=== PATIENT | female | born 1950 | race Caucasian/White ===

== ENCOUNTER 2020-07-04 13:46 | Inpatient (IN) | payer MEDICARE, OTHER ==
--- NOTE | 2020-07-04 15:11 | CR ---
Indication: Fall with injury. Technique: Pelvis and right hip 4 views. Comparison: None. Findings: There is an acute comminuted displaced fracture of the right femoral neck. The distal fracture fragment is displaced laterally and superiorly relative to the femoral head. The femoral head remains aligned within the acetabulum. The sacroiliac joints are normal in appearance. Soft tissues are unremarkable. Impression: Acute comminuted displaced fracture of the right femoral neck. Dictated by Glenna Toledo MD @ 07/04/2020 3:08:[address] Glenna Toledo @ Jul 04 2020 3:08PM
--- NOTE | 2020-07-04 15:13 | CR ---
Indication: Fall with injury. Technique: Left humerus 2 views. Comparison: None. Findings: There is an acute mildly displaced oblique fracture of the left proximal and mid humeral shaft. No significant angulation. Subtle lucencies within the lateral epicondyle of the distal humerus most likely related to superimposed skin folds. The shoulder and elbow appear normally aligned. The humeral head remains normally aligned with the glenoid. Moderate degenerative changes of the glenohumeral and acromioclavicular joints. Soft tissues are unremarkable. Impression: Acute mildly displaced oblique fracture of the left proximal and mid humeral shaft. Dictated by Glenna Toledo MD @ 07/04/2020 3:10:[address] Glenna Toledo @ Jul 04 2020 3:10PM
[2020-07-04 15:21] LABS: BLOOD UREA NITROGEN,BUN 27 mg/dL (7.0-18.0); CARBON DIOXIDE,CO2 27.6 mmol/L (21.0-32.0); CHLORIDE,CL 106 mmol/L (98-107); GLUCOSE RANDOM 231 mg/dL (74-106); POTASSIUM,K 4.2 mmol/L (3.5-5.1); SODIUM,NA 142 mmol/L (136-145)
--- NOTE | 2020-07-04 15:31 | CR ---
INDICATION: Trauma, fall TECHNIQUE: Chest 1 view COMPARISON: None FINDINGS: Cardiovascular and mediastinum: Heart size and vasculature are normal in caliber and appearance. Lungs and pleural spaces: Lungs are clear. No sign of infiltrate or mass. No sign of pleural effusion. No pneumothorax. Bones and soft tissues: No significant findings. IMPRESSION: No acute or significant findings. Dictated by Isidro Herbert MD @ 07/04/2020 3:29:[address] Isidro Herbert @ Jul 04 2020 3:29PM
--- NOTE | 2020-07-04 18:56 | PCM.HP.2 ---
H&P History of Present Illness - General Date of Service: 07/04/20 Admit Problem/Dx: Admission Diagnosis/Problem Admission Diagnosis/Problem Intertrochanteric fracture of right femur Source of Information: Patient History Limitations: Reports: No Limitations - History of Present Illness Initial Comments - Free Text/Narative: Patient is a 69-year-old female with a significant past medical history of type 2 diabetes, hypertension, hypothyroidism: Presenting today after experiencing a mechanical fall resulting in a left humeral and right hip fracture. Patient en dorses walking into the gas station and tripping on some carpet falling forward and landing on her left arm. Mentions exquisite pain resulting in EMS call; presented to the ED via EMS thereafter. ED course: Hip x-ray: Acute comminuted displaced fracture of the right femoral neck Humerus x-ray: Acute mildly displaced oblique fracture of the left proximal and mid humeral shaft Chest x-ray: No acute cardiopulmonary pathologies. Vitals: BP 168/79, pulse rate 68, 97 temperature, O2 sat 96%. Bedside: Endorses similar story as above. Denies any preceding symptoms including dizziness, changes in vision, chest pain, shortness of breath. Patient is confident that this was a mechanical fall and does state having a history issue with balance/steadiness and should probably use her walker/cane. 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 Endorses being regular with her medication not missing or taking extra doses. Last meal last night Eating and drinking well. Denies any fevers, chills, bodies, chest pain, shortness of breath, dysuria, hematuria, urinary incontinence. Patient otherwise states having some discomfort in her left arm and right hip with movement. - Related Data Allergies/Adverse Reactions: Allergies Allergy/AdvReac Type Severity Reaction Status Date / Time No Known Allergies Allergy Verified 07/04/20 13:59 Home Medications: Home Meds Calcium Carbonate [Calcium] 600 mg PO DAILY 07/04/20 [History] Cholecalciferol (Vitamin D3) [Vitamin D3] 500 mg PO DAILY 07/04/20 [History] Insulin Aspart [NovoLOG] 1 dose SQ DAILY 07/04/20 [History] Insulin Glarg,Human.Rec.Analog [Lantus] 1 dose INJECT ASDIRECTED 07/04/20 [History] Lansoprazole [Prevacid] 15 mg PO DAILY 07/04/20 [History] Levothyroxine Sodium [Synthroid] 75 mcg PO DAILY 07/04/20 [History] Losartan [Cozaar] 50 mg PO BID 07/04/20 [History] Lutein/Minerals/Vit A,C & E [Ocuvite] 1 tab PO DAILY 07/04/20 [History] Pioglitazone [Actos] 30 mg PO DAILY 07/04/20 [History] atorvaSTATin [Lipitor] 40 mg PO DAILY 07/04/20 [History] carvediloL [Carvedilol] 25 mg PO BID 07/04/20 [History] hydroCHLOROthiazide [Hydrochlorothiazide] 25 mg PO DAILY 07/04/20 [History] Past Medical History Cardiovascular History: Reports: High Cholesterol, Hypertension Endocrine/Metabolic History: Reports: Diabetes, Type II, Hypothyroidism - Infectious Disease History Infectious Disease History: Reports: None Social & Family History - Family History Family Medical History: No Pertinent Family History - Tobacco Use Tobacco Use Status *Q: Never Tobacco User - Caffeine Use Caffeine Use: Reports: None H&P Review of Systems - Review of Systems: Review Of Systems: See Below General: Reports: No Symptoms. Denies: Fever, Chills, Malaise, Weakness HEENT: Reports: No Symptoms Pulmonary: Reports: No Symptoms Cardiovascular: Reports: No Symptoms Gastrointestinal: Reports: No Symptoms Genitourinary: Reports: No Symptoms. Denies: Dysuria, Frequency, Burning, Pain Musculoskeletal: Reports: Shoulder Pain, Arm Pain, Back Pain, Other (right hip pain ) Psychiatric: Reports: No Symptoms Neurological: Denies: Confusion, Dizziness, Headache Exam - Exam Exam: See Below - Vital Signs Vital Signs: Last Vital Signs Temp 97.0 F 07/04/20 13:49 Pulse 68 07/04/20 15:40 Resp 07/04/20 15:40 BP 168/79 H 07/04/20 15:40 Pulse Ox 96 07/04/20 15:40 - Exam Quality Assessment: No: Supplemental Oxygen General: Alert, Oriented, Cooperative HEENT: EOMI, Mucosa Moist & [place] Lungs: Clear to Auscultation, Normal Respiratory Effort Cardiovascular: Regular Rate, Regular Rhythm GI/Abdominal Exam: Soft, Non-Tender (Female) Exam: Other (indwelling cath in-situ ) Extremities: Other (left upper extremity: tenderness noted w. minimal movmenet ; no overt overlying skin breakdown ....right hip tenderness: pain w. passive/ active ROM ) Skin: Warm Neurological: Cranial Nerves Intact Neuro Extensive - Mental Status: Alert, Oriented x3 Psychiatric: Alert, Normal Affect, Normal Mood Physical Exam Comments:: Obese female - Patient Data Lab Results Last 24 hrs: Laboratory Results - last 24 hr 07/04/20 07/04/20 07/04/20 Range/Units 14:42 14:42 15:37 WBC 3.92 L (4.0-11.0) K/uL RBC 3.68 L (4.30-5.90) M/uL Hgb 11.6 L (12.0-16.0) g/dL Hct 35.2 L (36.0-46.0) % MCV 95.7 (80.0-98.0) fL MCH 31.5 (27.0-32.0) pg MCHC 33.0 (31.0-37.0) g/dL RDW Std Deviation 49.4 (28.0-62.0) fl RDW Coeff of Grace 14 (11.0-15.0) % Plt Count 132 L (150-400) K/uL MPV 10.90 (7.40-12.00) fL Neut % (Auto) 69.4 (48.0-80.0) % Lymph % (Auto) 16.6 (16.0-40.0) % [place] % (Auto) 11.7 (0.0-15.0) % Eos % (Auto) 2.0 (0.0-7.0) % Baso % (Auto) 0.3 (0.0-1.5) % Neut # (Auto) 2.7 (1.4-5.7) K/uL Lymph # (Auto) 0.7 (0.6-2.4) K/uL [place] # (Auto) 0.5 (0.0-0.8) K/uL Eos # (Auto) 0.1 (0.0-0.7) K/uL Baso # (Auto) 0.0 (0.0-0.1) K/uL Nucleated RBC % 0.0 /100WBC Nucleated RBCs # 0 K/uL Sodium 142 (136-145) mmol/L Potassium 4.2 (3.5-5.1) mmol/L Chloride 106 (98-107) mmol/L Carbon Dioxide 27.6 (21.0-32.0) mmol/L BUN 27 H (7.0-18.0) mg/dL Creatinine 1.1 H (0.6-1.0) mg/dL Est Cr Clr Drug Dosing TNP Estimated GFR (MDRD) 49.1 ml/min Glucose 231 H (74-106) mg/dL Calcium 9.1 (8.5-10.1) mg/dL Total Bilirubin 0.7 (0.2-1.0) mg/dL AST 18 (15-37) IU/L ALT 19 (14-63) IU/L Alkaline Phosphatase 72 (46-116) U/L Total Protein 6.3 L (6.4-8.2) g/dL Albumin 3.2 L (3.4-5.0) g/dL Globulin 3.1 (2.6-4.0) g/dL Albumin/Globulin Ratio 1.0 (0.9-1.6) Urine Color Urine Appearance Urine pH (5.0-8.0) Ur Specific [place] (1.001-1.035) Urine Protein (NEGATIVE) mg/dL Urine Glucose (UA) (NEGATIVE) mg/dL Urine Ketones (NEGATIVE) mg/dL Urine Occult Blood (NEGATIVE) Urine Nitrite (NEGATIVE) Urine Bilirubin (NEGATIVE) Urine Urobilinogen (<2.0) EU/dL Ur Leukocyte Esterase (NEGATIVE) SARS-CoV-2 RNA (ESTEE) NEGATIVE (NEGATIVE) 07/04/20 Range/Units 17:50 WBC (4.0-11.0) K/uL RBC (4.30-5.90) M/uL Hgb (12.0-16.0) g/dL Hct (36.0-46.0) % MCV (80.0-98.0) fL MCH (27.0-32.0) pg MCHC (31.0-37.0) g/dL RDW Std Deviation (28.0-62.0) fl RDW Coeff of Grace (11.0-15.0) % Plt Count (150-400) K/uL MPV (7.40-12.00) fL Neut % (Auto) (48.0-80.0) % Lymph % (Auto) (16.0-40.0) % [place] % (Auto) (0.0-15.0) % Eos % (Auto) (0.0-7.0) % Baso % (Auto) (0.0-1.5) % Neut # (Auto) (1.4-5.7) K/uL Lymph # (Auto) (0.6-2.4) K/uL [place] # (Auto) (0.0-0.8) K/uL Eos # (Auto) (0.0-0.7) K/uL Baso # (Auto) (0.0-0.1) K/uL Nucleated RBC % /100WBC Nucleated RBCs # K/uL Sodium (136-145) mmol/L Potassium (3.5-5.1) mmol/L Chloride (98-107) mmol/L Carbon Dioxide (21.0-32.0) mmol/L BUN (7.0-18.0) mg/dL Creatinine (0.6-1.0) mg/dL Est Cr Clr Drug Dosing Estimated GFR (MDRD) ml/min Glucose (74-106) mg/dL Calcium (8.5-10.1) mg/dL Total Bilirubin (0.2-1.0) mg/dL AST (15-37) IU/L ALT (14-63) IU/L Alkaline Phosphatase (46-116) U/L Total Protein (6.4-8.2) g/dL Albumin (3.4-5.0) g/dL Globulin (2.6-4.0) g/dL Albumin/Globulin Ratio (0.9-1.6) Urine Color YELLOW Urine Appearance HAZY Urine pH 5.5 (5.0-8.0) Ur Specific [place] >= 1.030 (1.001-1.035) Urine Protein NEGATIVE (NEGATIVE) mg/dL Urine Glucose (UA) 250 H (NEGATIVE) mg/dL Urine Ketones TRACE H (NEGATIVE) mg/dL Urine Occult Blood NEGATIVE (NEGATIVE) Urine Nitrite NEGATIVE (NEGATIVE) Urine Bilirubin NEGATIVE (NEGATIVE) Urine Urobilinogen 0.2 (<2.0) EU/dL Ur Leukocyte Esterase NEGATIVE (NEGATIVE) SARS-CoV-2 RNA (ESTEE) (NEGATIVE) Result Diagrams: 07/04/20 14:42 07/04/20 14:42 Sepsis Event Note - Evaluation Sepsis Screening Result: No Definite Risk - Focused Exam Vital Signs: Vital Signs Temp Pulse Resp BP Pulse Ox 07/04/20 15:40 68 17 168/79 H 96 07/04/20 13:49 97.0 F 64 16 164/88 H 98 - Problem List (1) Closed right hip fracture SNOMED Code(s): 274254653 ICD Code: S72.001A - FRACTURE OF UNSP PART OF NECK OF RIGHT FEMUR, INIT Status: Acute Current Visit: Yes (2) Left humeral fracture SNOMED Code(s): 83255745 ICD Code: S42.302A - UNSP FRACTURE OF SHAFT OF HUMERUS, LEFT ARM, INIT Status: Acute Current Visit: Yes (3) Diabetes SNOMED Code(s): 94233374 ICD Code: E11.9 - TYPE 2 DIABETES MELLITUS WITHOUT COMPLICATIONS Status: Acute Current Visit: Yes (4) Hypertension SNOMED Code(s): 41080399 ICD Code: I10 - ESSENTIAL (PRIMARY) HYPERTENSION Status: Acute Current V isit: Yes (5) Obesity SNOMED Code(s): 153417622, 882413543 ICD Code: E66.9 - OBESITY, UNSPECIFIED Status: Acute Current Visit: Yes Problem List Initiated/Reviewed/Updated: Yes Orders Last 24hrs: Active Orders 24 hr Category Date Time Status Admission Status [Patient Status] [ADT] Stat ADT 07/04/20 17:50 Active EKG Documentation Completion [RC] STAT Care 07/04/20 14:32 Active DME for Discharge [COMM] Stat Oth 07/04/20 14:33 Ordered Assessment/Plan Comment:: Assessment: 1. Left humeral fracture/right hip fracture status post mechanical fall 2. GIANNI 3. Hyperglycemia and a type II diabetic 4. Past medical history: Type 2 diabetes, hypertension, hyperlipidemia hypothyroidism Plan Admit to inpatient. I's and O's per routine. Vitals per routine. Bedrest Heparin 5000 q8h Omeprazole 40 daily 1. Left humerus /right hip fracture: pt. is scheduled for orthopedic intervention on upcoming Saturday07-06-2020 Continue to medically manage pt at this time. Pain control: oxycodone q 4 hrs PRN w. ibuprofen Heparin 5000 q 8hrs scheduled Complete bedrest w. catheter in -situ GIANNI: tolerating po ; recheck in AM BMP Mechanical fall per patient : denies any preceding symptoms for fall. SSI+ TID accuchecks. Add on TSH and A1c 2. Type II DM: elevated A1c; TID accuchecks + SSI started 3. HTN: hold losartan; continue other meds for BP control + 1.1 Creatinine (mild GIANNI) 4. Continue home medications otherwise
[2020-07-04] MEDS ORDERED: Ondansetron 4 MG Tab.DIS PO PRN (19:05)
[2020-07-04] MEDS ORDERED: Ibuprofen 600 MG Tab PO ONE (19:06)
[2020-07-04] MEDS ORDERED: Ibuprofen 400 MG Tab PO PRN (19:28)
--- NOTE | 2020-07-04 19:30 | PCM.CONS ---
H&P History of Present Illness - General Date of Service: 07/04/20 Admit Problem/Dx: Admission Diagnosis/Problem Admission Diagnosis/Problem Intertrochanteric fracture of right femur Source of Information: Patient, Provider History Limitations: Reports: No Limitations - History of Present Illness Initial Comments - Free Text/Narative: Patient is a 69-year-old female who fell today at the gas station. She had immediate onset of pain in her right hip and left upper arm. She is seen in the emergency room. On x-rays she has a long spiral humerus shaft fracture on the left side and a right displaced basicervical femoral neck fracture. She denies any other significant injuries. She has no numbness in her left hand or right foot. She had no loss of consciousness, chest pain, or shortness of breath. She has no personal or family history of venous thromboembolic events. She is and lives independently on her own. - Related Data Allergies/Adverse Reactions: Allergies Allergy/AdvReac Type Severity Reaction Status Date / Time No Known Allergies Allergy Verified 07/04/20 13:59 Home Medications: Home Meds Calcium Carbonate [Calcium] 600 mg PO DAILY 07/04/20 [History] Cholecalciferol (Vitamin D3) [Vitamin D3] 500 mg PO DAILY 07/04/20 [History] Insulin Aspart [NovoLOG] 1 dose SQ DAILY 07/04/20 [History] Insulin Glarg,Human.Rec.Analog [Lantus] 1 dose INJECT ASDIRECTED 07/04/20 [History] Lansoprazole [Prevacid] 15 mg PO DAILY 07/04/20 [History] Levothyroxine Sodium [Synthroid] 75 mcg PO DAILY 07/04/20 [History] Losartan [Cozaar] 50 mg PO BID 07/04/20 [History] Lutein/Minerals/Vit A,C & E [Ocuvite] 1 tab PO DAILY 07/04/20 [History] Pioglitazone [Actos] 30 mg PO DAILY 07/04/20 [History] atorvaSTATin [Lipitor] 40 mg PO DAILY 07/04/20 [History] carvediloL [Carvedilol] 25 mg PO BID 07/04/20 [History] hydroCHLOROthiazide [Hydrochlorothiazide] 25 mg PO DAILY 07/04/20 [History] Past Medical History Cardiovascular History: Reports: High Cholesterol, Hypertension Endocrine/Metabolic History: Reports: Diabetes, Type II, Hypothyroidism - Infectious Disease History Infectious Disease History: Reports: None Social & Family History - Family History Family Medical History: No Pertinent Family History - Tobacco Use Tobacco Use Status *Q: Never Tobacco User - Caffeine Use Caffeine Use: Reports: None H&P Review of Systems - Review of Systems: Review Of Systems: See Below Musculoskeletal: Reports: Other (Right hip pain and left upper arm pain) Exam - Exam Exam: See Below - Vital Signs Vital Signs: Last Vital Signs Temp 97.0 F 07/04/20 13:49 Pulse 68 07/04/20 15:40 Resp 17 07/04/20 15:40 BP 168/79 H 07/04/20 15:40 Pulse Ox 96 07/04/20 15:40 - Exam Physical Exam Comments:: Right hip skin is intact Minimal swelling Hip range of motion, stability, palpation, and strength testing are deferred due to known fracture Dorsalis pedis pulse palpable Normal sensation to light touch in deep peroneal, superficial peroneal, and posterior tibial nerve distributions Moves toes Skin is intact in left upper arm with mild swelling Shoulder and elbow range of motion, stability, palpation, and strength testing are deferred due to known fracture Radial pulses palpable Normal sensation to light touch in median, ulnar, and radial nerve distributions Moves fingers - Patient Data Lab Results Last 24 hrs: Laboratory Results - last 24 hr 07/04/20 07/04/20 07/04/20 Range/Units 14:42 14:42 15:37 WBC 3.92 L (4.0-11.0) K/uL RBC 3.68 L (4.30-5.90) M/uL Hgb 11.6 L (12.0-16.0) g/dL Hct 35.2 L (36.0-46.0) % MCV 95.7 (80.0-98.0) fL MCH 31.5 (27.0-32.0) pg MCHC 33.0 (31.0-37.0) g/dL RDW Std Deviation 49.4 (28.0-62.0) fl RDW Coeff of Grace 14 (11.0-15.0) % Plt Count 132 L (150-400) K/uL MPV 10.90 (7.40-12.00) fL Neut % (Auto) 69.4 (48.0-80.0) % Lymph % (Auto) 16.6 (16.0-40.0) % [place] % (Auto) 11.7 (0.0-15.0) % Eos % (Auto) 2.0 (0.0-7.0) % Baso % (Auto) 0.3 (0.0-1.5) % Neut # (Auto) 2.7 (1.4-5.7) K/uL Lymph # (Auto) 0.7 (0.6-2.4) K/uL [place] # (Auto) 0.5 (0.0-0.8) K/uL Eos # (Auto) 0.1 (0.0-0.7) K/uL Baso # (Auto) 0.0 (0.0-0.1) K/uL Nucleated RBC % 0.0 /100WBC Nucleated RBCs # 0 K/uL Sodium 142 (136-145) mmol/L Potassium 4.2 (3.5-5.1) mmol/L Chloride 106 (98-107) mmol/L Carbon Dioxide 27.6 (21.0-32.0) mmol/L BUN 27 H (7.0-18.0) mg/dL Creatinine 1.1 H (0.6-1.0) mg/dL Est Cr Clr Drug Dosing TNP Estimated GFR (MDRD) 49.1 ml/min Glucose 231 H (74-106) mg/dL Calcium 9.1 (8.5-10.1) mg/dL Total Bilirubin 0.7 (0.2-1.0) mg/dL AST 18 (15-37) IU/L ALT 19 (14-63) IU/L Alkaline Phosphatase 72 (46-116) U/L Total Protein 6.3 L (6.4-8.2) g/dL Albumin 3.2 L (3.4-5.0) g/dL Globulin 3.1 (2.6-4.0) g/dL Albumin/Globulin Ratio 1.0 (0.9-1.6) Urine Color Urine Appearance Urine pH (5.0-8.0) Ur Specific [place] (1.001-1.035) Urine Protein (NEGATIVE) mg/dL Urine Glucose (UA) (NEGATIVE) mg/dL Urine Ketones (NEGATIVE) mg/dL Urine Occult Blood (NEGATIVE) Urine Nitrite (NEGATIVE) Urine Bilirubin (NEGATIVE) Urine Urobilinogen (<2.0) EU/dL Ur Leukocyte Esterase (NEGATIVE) SARS-CoV-2 RNA (ESTEE) NEGATIVE (NEGATIVE) 07/04/20 Range/Units 17:50 WBC (4.0-11.0) K/uL RBC (4.30-5.90) M/uL Hgb (12.0-16.0) g/dL Hct (36.0-46.0) % MCV (80.0-98.0) fL MCH (27.0-32.0) pg MCHC (31.0-37.0) g/dL RDW Std Deviation (28.0-62.0) fl RDW Coeff of Grace (11.0-15.0) % Plt Count (150-400) K/uL MPV (7.40-12.00) fL Neut % (Auto) (48.0-80.0) % Lymph % (Auto) (16.0-40.0) % [place] % (Auto) (0.0-15.0) % Eos % (Auto) (0.0-7.0) % Baso % (Auto) (0.0-1.5) % Neut # (Auto) (1.4-5.7) K/uL Lymph # (Auto) (0.6-2.4) K/uL [place] # (Auto) (0.0-0.8) K/uL Eos # (Auto) (0.0-0.7) K/uL Baso # (Auto) (0.0-0.1) K/uL Nucleated RBC % /100WBC Nucleated RBCs # K/uL Sodium (136-145) mmol/L Potassium (3.5-5.1) mmol/L Chloride (98-107) mmol/L Carbon Dioxide (21.0-32.0) mmol/L BUN (7.0-18.0) mg/dL Creatinine (0.6-1.0) mg/dL Est Cr Clr Drug Dosing Estimated GFR (MDRD) ml/min Glucose (74-106) mg/dL Calcium (8.5-10.1) mg/dL Total Bilirubin (0.2-1.0) mg/dL AST (15-37) IU/L ALT (14-63) IU/L Alkaline Phosphatase (46-116) U/L Total Protein (6.4-8.2) g/dL Albumin (3.4-5.0) g/dL Globulin (2.6-4.0) g/dL Albumin/Globulin Ratio (0.9-1.6) Urine Color YELLOW Urine Appearance HAZY Urine pH 5.5 (5.0-8.0) Ur Specific [place] >= 1.030 (1.001-1.035) Urine Protein NEGATIVE (NEGATIVE) mg/dL Urine Glucose (UA) 250 H (NEGATIVE) mg/dL Urine Ketones TRACE H (NEGATIVE) mg/dL Urine Occult Blood NEGATIVE (NEGATIVE) Urine Nitrite NEGATIVE (NEGATIVE) Urine Bilirubin NEGATIVE (NEGATIVE) Urine Urobilinogen 0.2 (<2.0) EU/dL Ur Leukocyte Esterase NEGATIVE (NEGATIVE) SARS-CoV-2 RNA (ESTEE) (NEGATIVE) Result Diagrams: 07/04/20 14:42 07/04/20 14:42 Sepsis Event Note - Evaluation Sepsis Screening Result: No Definite Risk - Focused Exam Vital Signs: Vital Signs Temp Pulse Resp BP Pulse Ox 07/04/20 15:40 68 17 168/79 H 96 07/04/20 13:49 97.0 F 64 16 164/88 H 98 Consult PN Assessment/Plan Problem List Initiated/Reviewed/Updated: Yes Plan: Patient is being admitted to the hospital service. As I am in clinic all day tomorrow, we will plan on scheduling surgery first thing Saturday. She may eat until midnight on Saturday night and then be n.p.o. after midnight for surgery Saturday. I have recommended subcutaneous heparin for venous thromboembolism prophylaxis which should be stopped with the last dose no later than 6 PM Saturday evening. I have recommended a sliding hip screw and derotation screw for the basicervical femoral neck fracture and plating of the humerus shaft fracture because she has 2 extremities injured I think she would benefit from fixation of both. Surgery has been scheduled. Consent has been completed. All questions answered.
[2020-07-04 19:33] LABS: HEMOGLOBIN A1C 9.5 %
--- NOTE | 2020-07-04 19:35 | EDM.PDOC ---
ED HPI GENERAL MEDICAL PROBLEM - General Chief Complaint: Lower Extremity Injury/Pain Stated Complaint: FELL EMS Time Seen by Provider: 07/04/20 13:55 Source of Information: Reports: Patient, Provider History Limitations: Reports: No Limitations - History of Present Illness INITIAL COMMENTS - FREE TEXT/NARRATIVE: CHIEF COMPLAINT(S): Fall HISTORY OF PRESENT ILLNESS: This is a 69-year-old woman with a past medical history of diabetes mellitus, hypertension, hypothyroidism who comes to the emergency department with a chief complaint of fall. The patient states that she was driving to [place] to visit her sister when she stopped a gas station and accidentally tripped on a rug. She states that she landed and caught her self with her left arm. She denies any preceding chest pain or shortness of breath. She currently denies any chest pain or shortness of breath. She states that she is currently experiencing 2-3 out of 10 pain in her left upper arm and right hip. She denies any radiation of this pain. She denies any numbness, tingling, weakness. She denies any head injury or loss of consciousness. She states that the pain is exacerbated by movement of her left arm and her right leg. She has not yet taken any pain medication. She denies any abdominal pain, nausea or vomiting. She states that she does not use any anticoagulation. REVIEW OF SYSTEMS: Constitutional: Denies fever, chills. Eyes: Denies eye pain Ears, Nose, Mouth, & Throat: Denies earache Cardiovascular: Denies chest pain Respiratory: Denies shortness of breath Gastrointestinal: Denies Nausea, vomiting, diarrhea, hematochezia. Genitourinary: Denies hematuria Skin:Denies a rash MSK: Positive for left upper arm and right hip pain Neurological: Denies blurred vision, numbness, tingling, weakness, head injury Psychiatric: Denies depression PAST MEDICAL HISTORY: As per history of present illness and as reviewed below otherwise noncontributory. SURGICAL HISTORY: As per history of present illness and as reviewed below otherwise noncontributory. SOCIAL HISTORY: As per history of present illness and as reviewed below otherwise noncontributory. FAMILY HISTORY: As per history of present illness and as reviewed below otherwise noncontributory. EXAMINATION OF ORGAN SYSTEMS/BODY AREAS: Constitutional: Blood pressure is 164/88, heart rate 64, respiratory rate 16 with an oxygen saturation 98% on room air. Temperature 36.1 General: Overall well-appearing elderly woman who is in no acute distress Psychiatric: Appropriate mood and affect. Eyes: No scleral icterus or conjunctival erythema pupils are equal round and reactive to light. ENMT: Moist mucous membranes. No pharyngeal erythema no blood in the oropharynx. No missing or chipped teeth. Cardiovascular: Regular, rate, and rhythm. No gallops, murmurs, or rubs. Bilateral upper extremity and lower extremity pulses symmetric and intact. No peripheral edema. No JVD. Respiratory: Lungs clear to auscultation bilaterally. No wheezes, rales, or rhonchi. Gastrointestinal: Soft, non-tender, non-distended. Normoactive bowel sounds Genitourinary: No suprapubic tenderness Musculoskeletal: The patient is not able to move her right lower extremity but she is to able flex and extend at the right ankle. The right leg is shortened and the leg is externally rotated. There is mild tenderness to palpation along the right hip. Distal pulses were intact. The left upper extremity reveals tenderness near the left humerus. There is no obvious deformity of the left upper extremity. Distal pulses in the upper extremity were intact. Compartments were soft Skin: No lesions or abrasions. Neurological: Alert, GCS 15 distal sensation was intact. MEDICAL DECISION MAKING AND COURSE IN THE ED WITH INTERPRETATION/REVIEW OF DIAGNOSTIC STUDIES: This is a 69-year-old woman with a past medical history of diabetes mellitus and hypertension who comes to the emergency department with acute mechanical fall with a shortened, externally rotated right lower extremity concerning for femur fracture and a left upper extremity arm pain concerning for humeral fracture. Will obtain x-rays of these areas. I do not believe any current labs or other imaging are indicated. We will provide the patient with Tylenol for pain relief. Patient does not have any abrasions therefore no need for tetanus at this time. The radiological images were viewed by myself along with reading the report from the radiologist. Right hip x-ray reveals a acute comminuted displaced fracture of the right femoral neck. Left humerus x-ray reveals a acute mildly displaced oblique fracture of the left proximal and mid humeral shaft. After imaging I did contact our orthopedic surgeon Dr. Blood who stated that we are able to handle this type of surgery here at [facility] and recommends admission to medicine. He states that he would come and evaluate the patient. At this time I did obtain screening labs and sent a Covid swab. EKG was unremarkable. The radiological images were viewed by myself along with reading the report from the radiologist. Chest x-ray does not reveal any acute cardiopulmonary process. Given the humerus fracture we did place a left upper extremity sling. Laboratory: CBC reveals a normocytic anemia with a hemoglobin of 11.6 and hematocrit of 35.2 with thrombocytopenia at 132 otherwise unremarkable. CMP reveals elevated BUN at 27 and creatinine of 1.1 with hyperglycemia 231 and hypoalbuminemia at 3.2. Covid is negative. Urinalysis was a clean catch and was negative for leukocyte esterase, negative for nitrites, and negative for blood. Interpretation: Negative. After screening labs I did contact Dr. Sutton who accepted the patient for admission. DISPOSITION: Patient was admitted to the hospital in stable condition CONDITION: Fair PROCEDURES: None FINAL IMPRESSION(S)/DIAGNOSES: 1. Acute comminuted displaced left humeral fracture 2. Acute right femoral neck fracture DME: Left shoulder sling Indication: Left humeral fracture Benefit: Immobilization Duration: Until Ortho clears her Harman Hendrickson M.D. - Related Data Allergies Allergy/AdvReac Type Severity Reaction Status Date / Time No Known Allergies Allergy Verified 07/04/20 13:59 Home Meds: Home Meds Calcium Carbonate [Calcium] 600 mg PO DAILY 07/04/20 [History] Cholecalciferol (Vitamin D3) [Vitamin D3] 500 mg PO DAILY 07/04/20 [History] Insulin Aspart [NovoLOG] 1 dose SQ DAILY 07/04/20 [History] Insulin Glarg,Human.Rec.Analog [Lantus] 1 dose INJECT ASDIRECTED 07/04/20 [History] Lansoprazole [Prevacid] 15 mg PO DAILY 07/04/20 [History] Levothyroxine Sodium [Synthroid] 75 mcg PO DAILY 07/04/20 [History] Losartan [Cozaar] 50 mg PO BID 07/04/20 [History] Lutein/Minerals/Vit A,C & E [Ocuvite] 1 tab PO DAILY 07/04/20 [History] Pioglitazone [Actos] 30 mg PO DAILY 07/04/20 [History] atorvaSTATin [Lipitor] 40 mg PO DAILY 07/04/20 [History] carvediloL [Carvedilol] 25 mg PO BID 07/04/20 [History] hydroCHLOROthiazide [Hydrochlorothiazide] 25 mg PO DAILY 07/04/20 [History] Past Medical History Cardiovascular History: Reports: High Cholesterol, Hypertension Endocrine/Metabolic History: Reports: Diabetes, Type II, Hypothyroidism - Infectious Disease History Infectious Disease History: Reports: None Social & Family History - Family History Family Medical History: No Pertinent Family History - Tobacco Use Tobacco Use Status *Q: Never Tobacco User - Caffeine Use Caffeine Use: Reports: None ED ROS GENERAL - Review of Systems Review Of Systems: See Below ED EXAM, GENERAL - Physical Exam Exam: See Below GI/Abdominal: Soft, Non-Tender Extremities: Other (left upper extremity: tenderness noted w. minimal movmenet ; no overt overlying skin breakdown ....right hip tenderness: pain w. passive/active ROM ) Course - Vital Signs Last Recorded V/S: Last Vital Signs Temp 36.1 C 07/04/20 13:49 Pulse 68 07/04/20 15:40 Resp 17 07/04/20 15:40 BP 168/79 H 07/04/20 15:40 Pulse Ox 96 07/04/20 15:40 - Orders/Labs/Meds Orders: Active Orders 24 hr Category Date Time Status EKG Documentation Completion [RC] STAT Care 07/04/20 14:32 Active DME for Discharge [COMM] Stat Oth 07/04/20 14:33 Ordered Medication Orders Atorvastatin Calcium (Atorvastatin 40 Mg Tab) 40 mg PO DAILY [facility] Carvedilol (Carvedilol 25 Mg Tab) 25 mg PO BID [facility] Heparin Sodium (Porcine) (Heparin Sodium 5,000 Units/Ml Vial) 5,000 units SUBCUT Q8H [facility] Hydrochlorothiazide (Hydrochlorothiazide 25 Mg Tab) 25 mg PO DAILY [facility] Ibuprofen (Ibuprofen 400 Mg Tab) 400 mg PO Q4H PRN PRN Reason: Pain Levothyroxine Sodium (Levothyroxine 75 Mcg Tab) 75 mcg PO ACBRK [facility] Omeprazole (Omeprazole 20 Mg Cap.Cr) 20 mg PO BEDTIME [facility] Ondansetron HCl (Ondansetron 4 Mg Tab.Dis) 4 mg PO Q6H PRN PRN Reason: nausea, able to take PO Oxycodone HCl (Oxycodone 5 Mg Tab) 5 mg PO Q4H PRN PRN Reason: Pain (moderate 4-6) Labs: Laboratory Tests 0507/04/20 07/04/20 Range/Units 14:42 14:42 15:37 WBC 3.92 L (4.0-11.0) K/uL RBC 3.68 L (4.30-5.90) M/uL Hgb 11.6 L (12.0-16.0) g/dL Hct 35.2 L (36.0-46.0) % MCV 95.7 (80.0-98.0) fL MCH 31.5 (27.0-32.0) pg MCHC 33.0 (31.0-37.0) g/dL RDW Std Deviation 49.4 (28.0-62.0) fl RDW Coeff of Grace 14 (11.0-15.0) % Plt Count 132 L (150-400) K/uL MPV 10.90 (7.40-12.00) fL Neut % (Auto) 69.4 (48.0-80.0) % Lymph % (Auto) 16.6 (16.0-40.0) % Meagher % (Auto) 11.7 (0.0-15.0) % Eos % (Auto) 2.0 (0.0-7.0) % Baso % (Auto) 0.3 (0.0-1.5) % Neut # (Auto) 2.7 (1.4-5.7) K/uL Lymph # (Auto) 0.7 (0.6-2.4) K/uL Meagher # (Auto) 0.5 (0.0-0.8) K/uL Eos # (Auto) 0.1 (0.0-0.7) K/uL Baso # (Auto) 0.0 (0.0-0.1) K/uL Nucleated RBC % 0.0 /100WBC Nucleated RBCs # 0 K/uL Sodium 142 (136-145) mmol/L Potassium 4.2 (3.5-5.1) mmol/L Chloride 106 (98-107) mmol/L Carbon Dioxide 27.6 (21.0-32.0) mmol/L BUN 27 H (7.0-18.0) mg/dL Creatinine 1.1 H (0.6-1.0) mg/dL Est Cr Clr Drug Dosing TNP Estimated GFR (MDRD) 49.1 ml/min Glucose 231 H (74-106) mg/dL Calcium 9.1 (8.5-10.1) mg/dL Total Bilirubin 0.7 (0.2-1.0) mg/dL AST 18 (15-37) IU/L ALT 19 (14-63) IU/L Alkaline Phosphatase 72 (46-116) U/L Total Protein 6.3 L (6.4-8.2) g/dL Albumin 3.2 L (3.4-5.0) g/dL Globulin 3.1 (2.6-4.0) g/dL Albumin/Globulin Ratio 1.0 (0.9-1.6) SARS-CoV-2 RNA (ESTEE) NEGATIVE (NEGATIVE) Meds: Medications Generic Name Dose Route Start Last Admin Trade Name Freq PRN Reason Stop Dose Admin Atorvastatin Calcium 40 mg 07/05/20 09:00 Atorvastatin 40 Mg Tab PO DAILY [facility] Carvedilol 25 mg 07/04/20 21:00 Carvedilol 25 Mg Tab PO BID [facility] Heparin Sodium (Porcine) 5,000 units 07/04/20 20:00 Heparin Sodium 5,000 Units/Ml Vial SUBCUT Q8H [facility] Hydrochlorothiazide 25 mg 07/05/20 09:00 Hydrochlorothiazide 25 Mg Tab PO DAILY [facility] Ibuprofen 400 mg 07/04/20 19:28 Ibuprofen 400 Mg Tab PO Q4H PRN Pain Levothyroxine Sodium 75 mcg 07/05/20 07:30 Levothyroxine 75 Mcg Tab PO ACBRK [facility] Omeprazole 20 mg 07/04/20 21:00 Omeprazole 20 Mg Cap.Cr PO BEDTIME [facility] Ondansetron HCl 4 mg 07/04/20 19:05 Ondansetron 4 Mg Tab.Dis PO Q6H PRN nausea, able to take PO Oxycodone HCl 5 mg 07/04/20 19:05 Oxycodone 5 Mg Tab PO Q4H PRN Pain (moderate 4-6) Discontinued Medications Generic Name Dose Route Start Last Admin Trade Name Freq PRN Reason Stop Dose Admin Ibuprofen 600 mg 07/04/20 19:06 07/04/20 19:22 Ibuprofen 600 Mg Tab PO 07/04/20 19:07 600 mg ONETIME ONE Administration Losartan Potassium 50 mg 07/04/20 21:00 Losartan 50 Mg Tab PO BID [facility] Departure - Departure Time of Disposition: 17:50 Disposition: Admitted As Inpatient 65 Clinical Impression: Fracture of neck of femur, hip, Left humeral fracture - Discharge Information Sepsis Event Note (ED) - Evaluation Sepsis Screening Result: No Definite Risk - Focused Exam Vital Signs: Vital Signs Temp Pulse Resp BP Pulse Ox 07/04/20 15:40 68 17 168/79 H 96 07/04/20 13:49 36.1 C 64 16 164/88 H 98 - My Orders Last 24 Hours: My Active Orders 07/04/20 14:32 EKG Documentation Completion [RC] STAT 07/04/20 14:33 DME for Discharge [COMM] Stat - Assessment/Plan Last 24 Hours: My Active Orders 07/04/20 14:32 EKG Documentation Completion [RC] STAT 07/04/20 14:33 DME for Discharge [COMM] Stat
--- NOTE | 2020-07-04 19:36 | PCM.EKG ---
#1 Interpretation EKG Date: 07/04/20 Time: 15:32 Rhythm: NSR Rate (Beats/Min): 59 [place]: Normal P-Wave: Present QRS: Normal ST-T: Normal QT: Normal Comparison: NA - No Prior EKG EKG Interpretation Comments: Sinus Rhythm with occastional PVC
[2020-07-04] MEDS ORDERED: 50% Dextrose in Water 50 ML Syringe IV PRN (20:03)
[2020-07-04] MEDS ORDERED: Glucagon,Human Recombinant 1 MG Vial IM PRN (20:03)
[2020-07-04] MEDS ORDERED: Sodium Chloride 0.9% 1,000 ML IV ONE (20:50)
[2020-07-04] MEDS ORDERED: Losartan 50 MG Tab PO SCH (21:00)
[2020-07-04] MEDS: Heparin Sodium 5,000 Units/ML Vial SUBCUT SCH (21:04)
[2020-07-04] MEDS: Omeprazole 20 MG Cap.CR PO SCH (21:07)
[2020-07-04] MEDS: Carvedilol 25 MG Tab PO SCH (21:08)
[2020-07-05] MEDS: oxyCODONE 5 MG Tab PO PRN ×4 (01:35→22:34)
[2020-07-05] MEDS: Heparin Sodium 5,000 Units/ML Vial SUBCUT SCH ×2 (04:12→11:20)
[2020-07-05 06:23] LABS: CARBON DIOXIDE,CO2 25.2 mmol/L (21.0-32.0); POTASSIUM,K 3.9 mmol/L (3.5-5.1)
[2020-07-05] MEDS: Levothyroxine 75 MCG Tab PO SCH (06:52)
[2020-07-05] MEDS: Carvedilol 25 MG Tab PO SCH ×2 (08:34→20:44)
[2020-07-05] MEDS: Insulin Aspart 100 Units/ML 3 ML Pen SUBCUT SCH ×3 (08:36→17:51)
[2020-07-05] MEDS: atorvaSTATin 40 MG Tab PO SCH (08:36)
[2020-07-05] MEDS ORDERED: Hydrochlorothiazide 25 MG Tab PO SCH (09:00)
[2020-07-05] MEDS ORDERED: Insulin Glargine,Human Rec. Analog 100 Units/ML 3 ML Pen SUBCUT ONE (11:30)
--- NOTE | 2020-07-05 12:02 | PCM.PN ---
- General Info Date of Service: 07/05/20 Subjective Update: Bedside: no acute distress Mentions good pain control and no CP, SOB Functional Status: Reports: Pain Controlled - Review of Systems General: Reports: No Symptoms HEENT: Reports: No Symptoms Pulmonary: Reports: No Symptoms Cardiovascular: Reports: No Symptoms Gastrointestinal: Reports: No Symptoms Musculoskeletal: Reports: No Symptoms Neurological: Reports: No Symptoms - Patient Data Vitals - Most Recent: Last Vital Signs Temp 96.1 F L 07/05/20 08:15 Pulse 73 07/05/20 08:34 Resp 22 H 07/05/20 08:15 BP 152/72 H 07/05/20 08:34 Pulse Ox 91 L 07/05/20 08:15 Weight - Most Recent: 91.5 kg I&O - Last 24 Hours: Intake & Output 07/04/20 07/05/20 07/05/20 22:59 06:59 14:59 Intake Total 1000 550 Output Total 800 Balance 1016 -250 Lab Results Last 24 Hours: Laboratory Results - last 24 hr 07/04/20 07/04/20 07/04/20 Range/Units 14:42 14:42 14:42 WBC 3.92 L (4.0-11.0) K/uL RBC 3.68 L (4.30-5.90) M/uL Hgb 11.6 L (12.0-16.0) g/dL Hct 35.2 L (36.0-46.0) % MCV 95.7 (80.0-98.0) fL MCH 31.5 (27.0-32.0) pg MCHC 33.0 (31.0-37.0) g/dL RDW Std Deviation 49.4 (28.0-62.0) fl RDW Coeff of Grace 14 (11.0-15.0) % Plt Count 132 L (150-400) K/uL MPV 10.90 (7.40-12.00) fL Neut % (Auto) 69.4 (48.0-80.0) % Lymph % (Auto) 16.6 (16.0-40.0) % [place] % (Auto) 11.7 (0.0-15.0) % Eos % (Auto) 2.0 (0.0-7.0) % Baso % (Auto) 0.3 (0.0-1.5) % Neut # (Auto) 2.7 (1.4-5.7) K/uL Lymph # (Auto) 0.7 (0.6-2.4) K/uL [place] # (Auto) 0.5 (0.0-0.8) K/uL Eos # (Auto) 0.1 (0.0-0.7) K/uL Baso # (Auto) 0.0 (0.0-0.1) K/uL Nucleated RBC % 0.0 /100WBC Nucleated RBCs # 0 K/uL Sodium 142 (136-145) mmol/L Potassium 4.2 (3.5-5.1) mmol/L Chloride 106 (98-107) mmol/L Carbon Dioxide 27.6 (21.0-32.0) mmol/L BUN 27 H (7.0-18.0) mg/dL Creatinine 1.1 H (0.6-1.0) mg/dL Est Cr Clr Drug Dosing TNP Estimated GFR (MDRD) 49.1 ml/min Glucose 231 H (74-106) mg/dL POC Glucose (70-99) mg/dL Hemoglobin A1c 9.5 H (4.5 - 6.2) % Lactic Acid (0.4-2.0) mmol/L Calcium 9.1 (8.5-10.1) mg/dL Total Bilirubin 0.7 (0.2-1.0) mg/dL AST 18 (15-37) IU/L ALT 19 (14-63) IU/L Alkaline Phosphatase 72 (46-116) U/L Total Protein 6.3 L (6.4-8.2) g/dL Albumin 3.2 L (3.4-5.0) g/dL Globulin 3.1 (2.6-4.0) g/dL Albumin/Globulin Ratio 1.0 (0.9-1.6) TSH 3rd Generation (0.36-3.74) uIU/mL Urine Color Urine Appearance Urine pH (5.0-8.0) Ur Specific [place] (1.001-1.035) Urine Protein (NEGATIVE) mg/dL Urine Glucose (UA) (NEGATIVE) mg/dL Urine Ketones (NEGATIVE) mg/dL Urine Occult Blood (NEGATIVE) Urine Nitrite (NEGATIVE) Urine Bilirubin (NEGATIVE) Urine Urobilinogen (<2.0) EU/dL Ur Leukocyte Esterase (NEGATIVE) SARS-CoV-2 RNA (ESTEE) (NEGATIVE) 07/04/20 07/04/20 07/04/20 Range/Units 14:42 15:37 17:50 WBC (4.0-11.0) K/uL RBC (4.30-5.90) M/uL Hgb (12.0-16.0) g/dL Hct (36.0-46.0) % MCV (80.0-98.0) fL MCH (27.0-32.0) pg MCHC (31.0-37.0) g/dL RDW Std Deviation (28.0-62.0) fl RDW Coeff of Grace (11.0-15.0) % Plt Count (150-400) K/uL MPV (7.40-12.00) fL Neut % (Auto) (48.0-80.0) % Lymph % (Auto) (16.0-40.0) % [place] % (Auto) (0.0-15.0) % Eos % (Auto) (0.0-7.0) % Baso % (Auto) (0.0-1.5) % Neut # (Auto) (1.4-5.7) K/uL Lymph # (Auto) (0.6-2.4) K/uL [place] # (Auto) (0.0-0.8) K/uL Eos # (Auto) (0.0-0.7) K/uL Baso # (Auto) (0.0-0.1) K/uL Nucleated RBC % /100WBC Nucleated RBCs # K/uL Sodium (136-145) mmol/L Potassium (3.5-5.1) mmol/L Chloride (98-107) mmol/L Carbon Dioxide (21.0-32.0) mmol/L BUN (7.0-18.0) mg/dL Creatinine (0.6-1.0) mg/dL Est Cr Clr Drug Dosing Estimated GFR (MDRD) ml/min Glucose (74-106) mg/dL POC Glucose (70-99) mg/dL Hemoglobin A1c (4.5 - 6.2) % Lactic Acid (0.4-2.0) mmol/L Calcium (8.5-10.1) mg/dL Total Bilirubin (0.2-1.0) mg/dL AST (15-37) IU/L ALT (14-63) IU/L Alkaline Phosphatase (46-116) U/L Total Protein (6.4-8.2) g/dL Albumin (3.4-5.0) g/dL Globulin (2.6-4.0) g/dL Albumin/Globulin Ratio (0.9-1.6) TSH 3rd Generation 2.24 (0.36-3.74) uIU/mL Urine Color YELLOW Urine Appearance HAZY Urine pH 5.5 (5.0-8.0) Ur Specific [place] >= 1.030 (1.001-1.035) Urine Protein NEGATIVE (NEGATIVE) mg/dL Urine Glucose (UA) 250 H (NEGATIVE) mg/dL Urine Ketones TRACE H (NEGATIVE) mg/dL Urine Occult Blood NEGATIVE (NEGATIVE) Urine Nitrite NEGATIVE (NEGATIVE) Urine Bilirubin NEGATIVE (NEGATIVE) Urine Urobilinogen 0.2 (<2.0) EU/dL Ur Leukocyte Esterase NEGATIVE (NEGATIVE) SARS-CoV-2 RNA (ESTEE) NEGATIVE (NEGATIVE) 07/04/20 07/04/20 07/05/20 Range/Units 20:37 21:34 06:00 WBC 4.61 (4.0-11.0) K/uL RBC 3.09 L (4.30-5.90) M/uL Hgb 9.8 L (12.0-16.0) g/dL Hct 29.6 L (36.0-46.0) % MCV 95.8 (80.0-98.0) fL MCH 31.7 (27.0-32.0) pg MCHC 33.1 (31.0-37.0) g/dL RDW Std Deviation 50.9 (28.0-62.0) fl RDW Coeff of Grace 14 (11.0-15.0) % Plt Count 134 L (150-400) K/uL MPV 11.00 (7.40-12.00) fL Neut % (Auto) 71.0 (48.0-80.0) % Lymph % (Auto) 13.4 L (16.0-40.0) % [place] % (Auto) 15.0 (0.0-15.0) % Eos % (Auto) 0.4 (0.0-7.0) % Baso % (Auto) 0.2 (0.0-1.5) % Neut # (Auto) 3.3 (1.4-5.7) K/uL Lymph # (Auto) 0.6 (0.6-2.4) K/uL [place] # (Auto) 0.7 (0.0-0.8) K/uL Eos # (Auto) 0.0 (0.0-0.7) K/uL Baso # (Auto) 0.0 (0.0-0.1) K/uL Nucleated RBC % 0.0 /100WBC Nucleated RBCs # 0 K/uL Sodium (136-145) mmol/L Potassium (3.5-5.1) mmol/L Chloride (98-107) mmol/L Carbon Dioxide (21.0-32.0) mmol/L BUN (7.0-18.0) mg/dL Creatinine (0.6-1.0) mg/dL Est Cr Clr Drug Dosing Estimated GFR (MDRD) ml/min Glucose (74-106) mg/dL POC Glucose 220 H (70-99) mg/dL Hemoglobin A1c (4.5 - 6.2) % Lactic Acid 1.8 (0.4-2.0) mmol/L Calcium (8.5-10.1) mg/dL Total Bilirubin (0.2-1.0) mg/dL AST (15-37) IU/L ALT (14-63) IU/L Alkaline Phosphatase (46-116) U/L Total Protein (6.4-8.2) g/dL Albumin (3.4-5.0) g/dL Globulin (2.6-4.0) g/dL Albumin/Globulin Ratio (0.9-1.6) TSH 3rd Generation (0.36-3.74) uIU/mL Urine Color Urine Appearance Urine pH (5.0-8.0) Ur Specific [place] (1.001-1.035) Urine Protein (NEGATIVE) mg/dL Urine Glucose (UA) (NEGATIVE) mg/dL Urine Ketones (NEGATIVE) mg/dL Urine Occult Blood (NEGATIVE) Urine Nitrite (NEGATIVE) Urine Bilirubin (NEGATIVE) Urine Urobilinogen (<2.0) EU/dL Ur Leukocyte Esterase (NEGATIVE) SARS-CoV-2 RNA (ESTEE) (NEGATIVE) 07/05/20 07/05/20 07/05/20 Range/Units 06:00 06:55 11:18 WBC (4.0-11.0) K/uL RBC (4.30-5.90) M/uL Hgb (12.0-16.0) g/dL Hct (36.0-46.0) % MCV (80.0-98.0) fL MCH (27.0-32.0) pg MCHC (31.0-37.0) g/dL RDW Std Deviation (28.0-62.0) fl RDW Coeff of Grace (11.0-15.0) % Plt Count (150-400) K/uL MPV (7.40-12.00) fL Neut % (Auto) (48.0-80.0) % Lymph % (Auto) (16.0-40.0) % [place] % (Auto) (0.0-15.0) % Eos % (Auto) (0.0-7.0) % Baso % (Auto) (0.0-1.5) % Neut # (Auto) (1.4-5.7) K/uL Lymph # (Auto) (0.6-2.4) K/uL [place] # (Auto) (0.0-0.8) K/uL Eos # (Auto) (0.0-0.7) K/uL Baso # (Auto) (0.0-0.1) K/uL Nucleated RBC % /100WBC Nucleated RBCs # K/uL Sodium 140 (136-145) mmol/L Potassium 3.9 (3.5-5.1) mmol/L Chloride 105 (98-107) mmol/L Carbon Dioxide 25.2 (21.0-32.0) mmol/L BUN 26 H (7.0-18.0) mg/dL Creatinine 1.0 (0.6-1.0) mg/dL Est Cr Clr Drug Dosing 37.60 Estimated GFR (MDRD) 54.8 ml/min Glucose 382 H (74-106) mg/dL POC Glucose 330 H 320 H (70-99) mg/dL Hemoglobin A1c (4.5 - 6.2) % Lactic Acid (0.4-2.0) mmol/L Calcium 8.4 L (8.5-10.1) mg/dL Total Bilirubin (0.2-1.0) mg/dL AST (15-37) IU/L ALT (14-63) IU/L Alkaline Phosphatase (46-116) U/L Total Protein (6.4-8.2) g/dL Albumin (3.4-5.0) g/dL Globulin (2.6-4.0) g/dL Albumin/Globulin Ratio (0.9-1.6) TSH 3rd Generation (0.36-3.74) uIU/mL Urine Color Urine Appearance Urine pH (5.0-8.0) Ur Specific [place] (1.001-1.035) Urine Protein (NEGATIVE) mg/dL Urine Glucose (UA) (NEGATIVE) mg/dL Urine Ketones (NEGATIVE) mg/dL Urine Occult Blood (NEGATIVE) Urine Nitrite (NEGATIVE) Urine Bilirubin (NEGATIVE) Urine Urobilinogen (<2.0) EU/dL Ur Leukocyte Esterase (NEGATIVE) SARS-CoV-2 RNA (ESTEE) (NEGATIVE) Med Orders - Current: Current Medications Atorvastatin Calcium (Atorvastatin 40 Mg Tab) 40 mg PO DAILY [facility] Last Admin: 07/05/20 08:36 Dose: 40 mg Documented by: Carvedilol (Carvedilol 25 Mg Tab) 25 mg PO BID [facility] Last Admin: 07/05/20 08:34 Dose: 25 mg Documented by: Dextrose/Water (50% Dextrose In Water 50 Ml Syringe) 50 ml IV ASDIRECTED PRN PRN Reason: Hypoglycemia Glucagon (Glucagon,Human Recombinant 1 Mg Vial) 1 mg IM ASDIRECTED PRN PRN Reason: Hypoglycemia Heparin Sodium (Porcine) (Heparin Sodium 5,000 Units/Ml Vial) 5,000 units SUBCUT Q8H [facility] Stop: 07/05/20 17:00 Last Admin: 07/05/20 11:20 Dose: 5,000 units Documented by: Ibuprofen (Ibuprofen 400 Mg Tab) 400 mg PO Q4H PRN PRN Reason: Pain Insulin Aspart (Insulin Aspart 100 Units/Ml 3 Ml Pen) 0 unit SUBCUT TIDAC [facility]; Protocol Last Admin: 07/05/20 08:36 Dose: 8 unit Documented by: Insulin Glargine (Insulin Glargine,Human Rec. Analog 100 Units/Ml 3 Ml Pen) 11 units SUBCUT ONETIME ONE Stop: 07/06/20 05:01 Levothyroxine Sodium (Levothyroxine 75 Mcg Tab) 75 mcg PO ACBRK [facility] Last Admin: 07/05/20 06:52 Dose: 75 mcg Documented by: Omeprazole (Omeprazole 20 Mg Cap.Cr) 20 mg PO BEDTIME [facility] Last Admin: 07/04/20 21:07 Dose: 20 mg Documented by: Ondansetron HCl (Ondansetron 4 Mg Tab.Dis) 4 mg PO Q6H PRN PRN Reason: nausea, able to take PO Oxycodone HCl (Oxycodone 5 Mg Tab) 5 mg PO Q4H PRN PRN Reason: Pain (moderate 4-6) Last Admin: 07/05/20 08:35 Dose: 5 mg Documented by: Discontinued Medications Hydrochlorothiazide (Hydrochlorothiazide 25 Mg Tab) 25 mg PO DAILY [facility] Sodium Chloride (Normal Saline) 1,000 mls @ 999 mls/hr IV .Bolus ONE Stop: 07/04/20 21:50 Last Admin: 07/04/20 21:03 Dose: 999 mls/hr Documented by: Ibuprofen (Ibuprofen 600 Mg Tab) 600 mg PO ONETIME ONE Stop: 07/04/20 19:07 Last Admin: 07/04/20 19:22 Dose: 600 mg Documented by: Insulin Glargine (Insulin Glargine,Human Rec. Analog 100 Units/Ml 3 Ml Pen) 22 units SUBCUT ONETIME ONE Stop: 07/05/20 11:31 Last Admin: 07/05/20 11:18 Dose: 22 units Documented by: Losartan Potassium (Losartan 50 Mg Tab) 50 mg PO BID [facility] - Exam Quality Assessment: No: Supplemental Oxygen Urinary Catheter Total Time: 0Days 0Hours General: Alert, Oriented HEENT: EOMI Neck: Supple Lungs: Clear to Auscultation, Normal Respiratory Effort Cardiovascular: Regular Rate, Regular Rhythm GI/Abdominal Exam: Soft, Non-Tender Extremities: Other Psy/Mental Status: Alert, Normal Affect, Normal Mood - Patient Data Lab Results Last 24 hrs: Laboratory Results - last 24 hr 07/04/20 07/04/20 07/04/20 Range/Units 14:42 14:42 14:42 WBC 3.92 L (4.0-11.0) K/uL RBC 3.68 L (4.30-5.90) M/uL Hgb 11.6 L (12.0-16.0) g/dL Hct 35.2 L (36.0-46.0) % MCV 95.7 (80.0-98.0) fL MCH 31.5 (27.0-32.0) pg MCHC 33.0 (31.0-37.0) g/dL RDW Std Deviation 49.4 (28.0-62.0) fl RDW Coeff of Grace 14 (11.0-15.0) % Plt Count 132 L (150-400) K/uL MPV 10.90 (7.40-12.00) fL Neut % (Auto) 69.4 (48.0-80.0) % Lymph % (Auto) 16.6 (16.0-40.0) % [place] % (Auto) 11.7 (0.0-15.0) % Eos % (Auto) 2.0 (0.0-7.0) % Baso % (Auto) 0.3 (0.0-1.5) % Neut # (Auto) 2.7 (1.4-5.7) K/uL Lymph # (Auto) 0.7 (0.6-2.4) K/uL [place] # (Auto) 0.5 (0.0-0.8) K/uL Eos # (Auto) 0.1 (0.0-0.7) K/uL Baso # (Auto) 0.0 (0.0-0.1) K/uL Nucleated RBC % 0.0 /100WBC Nucleated RBCs # 0 K/uL Sodium 142 (136-145) mmol/L Potassium 4.2 (3.5-5.1) mmol/L Chloride 106 (98-107) mmol/L Carbon Dioxide 27.6 (21.0-32.0) mmol/L BUN 27 H (7.0-18.0) mg/dL Creatinine 1.1 H (0.6-1.0) mg/dL Est Cr Clr Drug Dosing TNP Estimated GFR (MDRD) 49.1 ml/min Glucose 231 H (74-106) mg/dL POC Glucose (70-99) mg/dL Hemoglobin A1c 9.5 H (4.5 - 6.2) % Lactic Acid (0.4-2.0) mmol/L Calcium 9.1 (8.5-10.1) mg/dL Total Bilirubin 0.7 (0.2-1.0) mg/dL AST 18 (15-37) IU/L ALT 19 (14-63) IU/L Alkaline Phosphatase 72 (46-116) U/L Total Protein 6.3 L (6.4-8.2) g/dL Albumin 3.2 L (3.4-5.0) g/dL Globulin 3.1 (2.6-4.0) g/dL Albumin/Globulin Ratio 1.0 (0.9-1.6) TSH 3rd Generation (0.36-3.74) uIU/mL Urine Color Urine Appearance Urine pH (5.0-8.0) Ur Specific [place] (1.001-1.035) Urine Protein (NEGATIVE) mg/dL Urine Glucose (UA) (NEGATIVE) mg/dL Urine Ketones (NEGATIVE) mg/dL Urine Occult Blood (NEGATIVE) Urine Nitrite (NEGATIVE) Urine Bilirubin (NEGATIVE) Urine Urobilinogen (<2.0) EU/dL Ur Leukocyte Esterase (NEGATIVE) SARS-CoV-2 RNA (ESTEE) (NEGATIVE) 07/04/20 07/04/20 07/04/20 Range/Units 14:42 15:37 17:50 WBC (4.0-11.0) K/uL RBC (4.30-5.90) M/uL Hgb (12.0-16.0) g/dL Hct (36.0-46.0) % MCV (80.0-98.0) fL MCH (27.0-32.0) pg MCHC (31.0-37.0) g/dL RDW Std Deviation (28.0-62.0) fl RDW Coeff of Grace (11.0-15.0) % Plt Count (150-400) K/uL MPV (7.40-12.00) fL Neut % (Auto) (48.0-80.0) % Lymph % (Auto) (16.0-40.0) % [place] % (Auto) (0.0-15.0) % Eos % (Auto) (0.0-7.0) % Baso % (Auto) (0.0-1.5) % Neut # (Auto) (1.4-5.7) K/uL Lymph # (Auto) (0.6-2.4) K/uL [place] # (Auto) (0.0-0.8) K/uL Eos # (Auto) (0.0-0.7) K/uL Baso # (Auto) (0.0-0.1) K/uL Nucleated RBC % /100WBC Nucleated RBCs # K/uL Sodium (136-145) mmol/L Potassium (3.5-5.1) mmol/L Chloride (98-107) mmol/L Carbon Dioxide (21.0-32.0) mmol/L BUN (7.0-18.0) mg/dL Creatinine (0.6-1.0) mg/dL Est Cr Clr Drug Dosing Estimated GFR (MDRD) ml/min Glucose (74-106) mg/dL POC Glucose (70-99) mg/dL Hemoglobin A1c (4.5 - 6.2) % Lactic Acid (0.4-2.0) mmol/L Calcium (8.5-10.1) mg/dL Total Bilirubin (0.2-1.0) mg/dL AST (15-37) IU/L ALT (14-63) IU/L Alkaline Phosphatase (46-116) U/L Total Protein (6.4-8.2) g/dL Albumin (3.4-5.0) g/dL Globulin (2.6-4.0) g/dL Albumin/Globulin Ratio (0.9-1.6) TSH 3rd Generation 2.24 (0.36-3.74) uIU/mL Urine Color YELLOW Urine Appearance HAZY Urine pH 5.5 (5.0-8.0) Ur Specific [place] >= 1.030 (1.001-1.035) Urine Protein NEGATIVE (NEGATIVE) mg/dL Urine Glucose (UA) 250 H (NEGATIVE) mg/dL Urine Ketones TRACE H (NEGATIVE) mg/dL Urine Occult Blood NEGATIVE (NEGATIVE) Urine Nitrite NEGATIVE (NEGATIVE) Urine Bilirubin NEGATIVE (NEGATIVE) Urine Urobilinogen 0.2 (<2.0) EU/dL Ur Leukocyte Esterase NEGATIVE (NEGATIVE) SARS-CoV-2 RNA (ESTEE) NEGATIVE (NEGATIVE) 07/04/20 07/04/20 07/05/20 Range/Units 20:37 21:34 06:00 WBC 4.61 (4.0-11.0) K/uL RBC 3.09 L (4.30-5.90) M/uL Hgb 9.8 L (12.0-16.0) g/dL Hct 29.6 L (36.0-46.0) % MCV 95.8 (80.0-98.0) fL MCH 31.7 (27.0-32.0) pg MCHC 33.1 (31.0-37.0) g/dL RDW Std Deviation 50.9 (28.0-62.0) fl RDW Coeff of Grace 14 (11.0-15.0) % Plt Count 134 L (150-400) K/uL MPV 11.00 (7.40-12.00) fL Neut % (Auto) 71.0 (48.0-80.0) % Lymph % (Auto) 13.4 L (16.0-40.0) % [place] % (Auto) 15.0 (0.0-15.0) % Eos % (Auto) 0.4 (0.0-7.0) % Baso % (Auto) 0.2 (0.0-1.5) % Neut # (Auto) 3.3 (1.4-5.7) K/uL Lymph # (Auto) 0.6 (0.6-2.4) K/uL [place] # (Auto) 0.7 (0.0-0.8) K/uL Eos # (Auto) 0.0 (0.0-0.7) K/uL Baso # (Auto) 0.0 (0.0-0.1) K/uL Nucleated RBC % 0.0 /100WBC Nucleated RBCs # 0 K/uL Sodium (136-145) mmol/L Potassium (3.5-5.1) mmol/L Chloride (98-107) mmol/L Carbon Dioxide (21.0-32.0) mmol/L BUN (7.0-18.0) mg/dL Creatinine (0.6-1.0) mg/dL Est Cr Clr Drug Dosing Estimated GFR (MDRD) ml/min Glucose (74-106) mg/dL POC Glucose 220 H (70-99) mg/dL Hemoglobin A1c (4.5 - 6.2) % Lactic Acid 1.8 (0.4-2.0) mmol/L Calcium (8.5-10.1) mg/dL Total Bilirubin (0.2-1.0) mg/dL AST (15-37) IU/L ALT (14-63) IU/L Alkaline Phosphatase (46-116) U/L Total Protein (6.4-8.2) g/dL Albumin (3.4-5.0) g/dL Globulin (2.6-4.0) g/dL Albumin/Globulin Ratio (0.9-1.6) TSH 3rd Generation (0.36-3.74) uIU/mL Urine Color Urine Appearance Urine pH (5.0-8.0) Ur Specific [place] (1.001-1.035) Urine Protein (NEGATIVE) mg/dL Urine Glucose (UA) (NEGATIVE) mg/dL Urine Ketones (NEGATIVE) mg/dL Urine Occult Blood (NEGATIVE) Urine Nitrite (NEGATIVE) Urine Bilirubin (NEGATIVE) Urine Urobilinogen (<2.0) EU/dL Ur Leukocyte Esterase (NEGATIVE) SARS-CoV-2 RNA (ESTEE) (NEGATIVE) 07/05/20 07/05/20 07/05/20 Range/Units 06:00 06:55 11:18 WBC (4.0-11.0) K/uL RBC (4.30-5.90) M/uL Hgb (12.0-16.0) g/dL Hct (36.0-46.0) % MCV (80.0-98.0) fL MCH (27.0-32.0) pg MCHC (31.0-37.0) g/dL RDW Std Deviation (28.0-62.0) fl RDW Coeff of Grace (11.0-15.0) % Plt Count (150-400) K/uL MPV (7.40-12.00) fL Neut % (Auto) (48.0-80.0) % Lymph % (Auto) (16.0-40.0) % [place] % (Auto) (0.0-15.0) % Eos % (Auto) (0.0-7.0) % Baso % (Auto) (0.0-1.5) % Neut # (Auto) (1.4-5.7) K/uL Lymph # (Auto) (0.6-2.4) K/uL [place] # (Auto) (0.0-0.8) K/uL Eos # (Auto) (0.0-0.7) K/uL Baso # (Auto) (0.0-0.1) K/uL Nucleated RBC % /100WBC Nucleated RBCs # K/uL Sodium 140 (136-145) mmol/L Potassium 3.9 (3.5-5.1) mmol/L Chloride 105 (98-107) mmol/L Carbon Dioxide 25.2 (21.0-32.0) mmol/L BUN 26 H (7.0-18.0) mg/dL Creatinine 1.0 (0.6-1.0) mg/dL Est Cr Clr Drug Dosing 37.60 Estimated GFR (MDRD) 54.8 ml/min Glucose 382 H (74-106) mg/dL POC Glucose 330 H 320 H (70-99) mg/dL Hemoglobin A1c (4.5 - 6.2) % Lactic Acid (0.4-2.0) mmol/L Calcium 8.4 L (8.5-10.1) mg/dL Total Bilirubin (0.2-1.0) mg/dL AST (15-37) IU/L ALT (14-63) IU/L Alkaline Phosphatase (46-116) U/L Total Protein (6.4-8.2) g/dL Albumin (3.4-5.0) g/dL Globulin (2.6-4.0) g/dL Albumin/Globulin Ratio (0.9-1.6) TSH 3rd Generation (0.36-3.74) uIU/mL Urine Color Urine Appearance Urine pH (5.0-8.0) Ur Specific [place] (1.001-1.035) Urine Protein (NEGATIVE) mg/dL Urine Glucose (UA) (NEGATIVE) mg/dL Urine Ketones (NEGATIVE) mg/dL Urine Occult Blood (NEGATIVE) Urine Nitrite (NEGATIVE) Urine Bilirubin (NEGATIVE) Urine Urobilinogen (<2.0) EU/dL Ur Leukocyte Esterase (NEGATIVE) SARS-CoV-2 RNA (ESTEE) (NEGATIVE) Result Diagrams: 07/05/20 06:00 07/05/20 06:00 Sepsis Event Note - Evaluation Sepsis Screening Result: No Definite Risk - Focused Exam Vital Signs: Vital Signs Temp Pulse Pulse Resp BP BP Pulse Ox 07/05/20 08:34 73 152/72 H 07/05/20 08:15 96.1 F L 73 22 H 152/72 H 91 L 07/05/20 04:09 96.9 F 69 18 147/59 H 91 L - Problem List & Annotations (1) Closed right hip fracture SNOMED Code(s): 358898950 Code(s): S72.001A - FRACTURE OF UNSP PART OF NECK OF RIGHT FEMUR, INIT Status: Acute Current Visit: Yes (2) Left humeral fracture SNOMED Code(s): 44367456 Code(s): S42.302A - UNSP FRACTURE OF SHAFT OF HUMERUS, LEFT ARM, INIT Status: Acute Current Visit: Yes (3) Diabetes SNOMED Code(s): 43212385 Code(s): E11.9 - TYPE 2 DIABETES MELLITUS WITHOUT COMPLICATIONS Status: Acute Current Visit: Yes (4) Hypertension SNOMED Code(s): 89177417 Code(s): I10 - ESSENTIAL (PRIMARY) HYPERTENSION Status: Acute Current Visit: Yes (5) Obesity SNOMED Code(s): 849826915, 806757068 Code(s): E66.9 - OBESITY, UNSPECIFIED Status: Acute Current Visit: Yes - Problem List Review Problem List Initiated/Reviewed/Updated: Yes - My Orders Last 24 Hours: My Active Orders 07/04/20 19:05 Bedrest Bathroom Privileges [RC] ASDIRECTED Blood Glucose Check, Bedside [RC] TIDMEALS Oxygen Therapy [RC] PRN VTE/DVT Education [RC] PER UNIT ROUTINE Vital Signs [RC] Q4H Ondansetron [Zofran ODT] 4 mg PO Q6H PRN oxyCODONE 5 mg PO Q4H PRN 07/04/20 19:06 Sequential Compression Device [OM.PC] Per Unit Routine 07/04/20 19:07 Antiembolic Devices [RC] PER UNIT ROUTINE 07/04/20 19:28 Ibuprofen [Motrin] 400 mg PO Q4H PRN 07/04/20 20:00 Heparin Sodium 5,000 units SUBCUT Q8H 07/04/20 20:03 Dextrose 50% in Water 50 ml IV ASDIRECTED PRN Glucagon,Human Recombinant [GlucaGen] 1 mg IM ASDIRECTED PRN 07/04/20 21:00 Omeprazole 20 mg PO BEDTIME carvediloL [Coreg] 25 mg PO BID 07/05/20 07:30 Insulin Aspart [NovoLOG] See Protocol SUBCUT TIDAC Levothyroxine 75 mcg PO ACBRK 07/05/20 09:00 atorvaSTATin [Lipitor] 40 mg PO DAILY 07/05/20 Dinner NPO After Midnight [Nothing per Oral After Midnight Diet] [DIET] 07/06/20 05:11 BASIC METABOLIC PANEL,BMP [CHEM] AM CBC WITH AUTO DIFF [HEME] AM 07/07/20 05:11 BASIC METABOLIC PANEL,BMP [CHEM] AM CBC WITH AUTO DIFF [HEME] AM - Plan Plan:: Assessment: 1. Left humeral fracture/right hip fracture status post mechanical fall 2. GIANNI 3. Hyperglycemia and a type II diabetic 4. Past medical history: Type 2 diabetes, hypertension, hyperlipidemia hypothyroidism Plan Admit to inpatient. I's and O's per routine. Vitals per routine. Bedrest Heparin 5000 q8h Omeprazole 40 daily 1. Left humerus /right hip fracture: pt. is scheduled for orthopedic intervention on upcoming Saturday07-06-2020 Continue to medically manage pt at this time. Pain control: oxycodone q 4 hrs PRN w. ibuprofen Heparin 5000 q 8hrs scheduled : discontinue tonight at 5 pm Complete bedrest w. catheter in -situ GIANNI: resolved Mechanical fall per patient : denies any preceding symptoms for fall. SSI+ TID accuchecks.: restart half home AM LA insulin at 22 units this AM and 1/2 dosing tomorrow at 11 units ; recheck BG q 6hrs and increase SSI 2. Type II DM: elevated A1c; TID accuchecks + SSI started 3. HTN: hold losartan and HCTZ; 4. Continue home medications otherwise
[2020-07-05] MEDS ORDERED: Sodium Chloride 0.9% 1,000 ML IV ONE (19:22)
[2020-07-05] MEDS ORDERED: Glucagon,Human Recombinant 1 MG Vial IM PRN (19:24)
[2020-07-05] MEDS ORDERED: 50% Dextrose in Water 50 ML Syringe IV PRN (19:24)
[2020-07-05] MEDS: Omeprazole 20 MG Cap.CR PO SCH (20:42)
[2020-07-05] MEDS ORDERED: Insulin Glargine,Human Rec. Analog 100 Units/ML 3 ML Pen SUBCUT SCH (21:00)
[2020-07-06] MEDS: oxyCODONE 5 MG Tab PO PRN ×2 (04:53→22:29)
[2020-07-06] MEDS ORDERED: Insulin Glargine,Human Rec. Analog 100 Units/ML 3 ML Pen SUBCUT ONE (05:00)
[2020-07-06 05:32] LABS: CARBON DIOXIDE,CO2 25.5 mmol/L (21.0-32.0); POTASSIUM,K 3.8 mmol/L (3.5-5.1)
[2020-07-06] MEDS ORDERED: Phenylephrine 1% 10 MG/ML SDV ONE (06:39)
[2020-07-06] MEDS ORDERED: Bupivacaine 0.5% 30 ML SDV ONE (06:56)
[2020-07-06] MEDS ORDERED: Sodium Chloride 0.9% 20 ML ONE ×3 (06:58→11:23)
[2020-07-06] MEDS ORDERED: Lidocaine 2% 5 ML SDV ONE (07:00)
[2020-07-06] MEDS ORDERED: Glycopyrrolate 0.2 MG/ML SDV ONE (07:00)
[2020-07-06] MEDS ORDERED: Ondansetron 4 MG/2 ML SDV ONE (07:00)
[2020-07-06] MEDS ORDERED: Ketorolac 30 MG/ML SDV ONE (07:00)
[2020-07-06] MEDS ORDERED: Rocuronium Bromide 50 MG/5 ML Syringe ONE ×2 (07:00→10:27)
[2020-07-06] MEDS ORDERED: Midazolam 1 MG/ML 2 ML SDV ONE ×2 (07:02)
[2020-07-06] MEDS ORDERED: Propofol 200 MG/20 ML SDV ONE (07:02)
[2020-07-06] MEDS ORDERED: fentaNYL 100 MCG/2 ML SDV ONE (07:03)
--- NOTE | 2020-07-06 07:29 | PCM.PREANE ---
Preanesthetic Assessment - Anesthesia/Transfusion/Family Hx Anesthesia History: Prior Anesthesia Reaction Family History of Anesthesia Reaction: No Transfusion History: Unknown - Review of Systems General: No Symptoms Pulmonary: No Symptoms Cardiovascular: No Symptoms Gastrointestinal: No Symptoms Neurological: No Symptoms Other: Reports: None - Physical Assessment NPO Status Date: 07/06/20 NPO Status Time: 00:01 Vital Signs: Last Vital Signs Temp 97.8 F 07/06/20 05:00 Pulse 68 07/06/20 05:00 Resp 16 07/06/20 05:00 BP 140/71 07/06/20 05:00 Pulse Ox 93 L 07/06/20 05:00 Height: 5 ft Weight: 201 lb 11.567 oz ASA Class: 3 Mental Status: Alert & Oriented x3 Airway Class: Mallampati = 2 Dentition: Reports: Normal Dentition, Broken Tooth/Teeth, Missing Tooth/Teeth ROM/Head Extension: Full Lungs: Clear to Auscultation, Normal Respiratory Effort Cardiovascular: Regular Rate, Regular Rhythm - Lab Values: Laboratory Last Values WBC 5.05 K/uL (4.0-11.0) 07/06/20 05:00 RBC 2.91 M/uL (4.30-5.90) L 07/06/20 05:00 Hgb 9.2 g/dL (12.0-16.0) L 07/06/20 05:00 Hct 27.7 % (36.0-46.0) L 07/06/20 05:00 MCV 95.2 fL (80.0-98.0) 07/06/20 05:00 MCH 31.6 pg (27.0-32.0) 07/06/20 05:00 MCHC 33.2 g/dL (31.0-37.0) 07/06/20 05:00 RDW Std Deviation 49.8 fl (28.0-62.0) 07/06/20 05:00 RDW Coeff of Grace 14 % (11.0-15.0) 07/06/20 05:00 Plt Count 122 K/uL (150-400) L 07/06/20 05:00 MPV 11.10 fL (7.40-12.00) 07/06/20 05:00 Neut % (Auto) 69.3 % (48.0-80.0) 07/06/20 05:00 Lymph % (Auto) 15.2 % (16.0-40.0) L 07/06/20 05:00 [place] % (Auto) 14.3 % (0.0-15.0) 07/06/20 05:00 Eos % (Auto) 1.0 % (0.0-7.0) 07/06/20 05:00 Baso % (Auto) 0.2 % (0.0-1.5) 07/06/20 05:00 Neut # (Auto) 3.5 K/uL (1.4-5.7) 07/06/20 05:00 Lymph # (Auto) 0.8 K/uL (0.6-2.4) 07/06/20 05:00 [place] # (Auto) 0.7 K/uL (0.0-0.8) 07/06/20 05:00 Eos # (Auto) 0.1 K/uL (0.0-0.7) 07/06/20 05:00 Baso # (Auto) 0.0 K/uL (0.0-0.1) 07/06/20 05:00 Nucleated RBC % 0.5 /100WBC 07/06/20 05:00 Nucleated RBCs # 0 K/uL 07/06/20 05:00 Sodium 137 mmol/L (136-145) 07/06/20 05:00 Potassium 3.8 mmol/L (3.5-5.1) 07/06/20 05:00 Chloride 103 mmol/L (98-107) 07/06/20 05:00 Carbon Dioxide 25.5 mmol/L (21.0-32.0) 07/06/20 05:00 BUN 26 mg/dL (7.0-18.0) H 07/06/20 05:00 Creatinine 1.0 mg/dL (0.6-1.0) 07/06/20 05:00 Est Cr Clr Drug Dosing 37.60 mL/min 07/06/20 05:00 Estimated GFR (MDRD) 54.8 ml/min 07/06/20 05:00 Glucose 309 mg/dL (74-106) H 07/06/20 05:00 POC Glucose 299 mg/dL (70-99) H 07/06/20 06:34 Hemoglobin A1c 9.5 % (4.5-6.2) H 07/04/20 14:42 Lactic Acid 1.8 mmol/L (0.4-2.0) 07/04/20 21:34 Calcium 7.7 mg/dL (8.5-10.1) L 07/06/20 05:00 Total Bilirubin 0.7 mg/dL (0.2-1.0) 07/04/20 14:42 AST 18 IU/L (15-37) 07/04/20 14:42 ALT 19 IU/L (14-63) 07/04/20 14:42 Alkaline Phosphatase 72 U/L (46-116) 07/04/20 14:42 Total Protein 6.3 g/dL (6.4-8.2) L 07/04/20 14:42 Albumin 3.2 g/dL (3.4-5.0) L 07/04/20 14:42 Globulin 3.1 g/dL (2.6-4.0) 07/04/20 14:42 Albumin/Globulin Ratio 1.0 (0.9-1.6) 07/04/20 14:42 TSH 3rd Generation 2.24 uIU/mL (0.36-3.74) 07/04/20 14:42 Urine Color YELLOW 07/04/20 17:50 Urine Appearance HAZY 07/04/20 17:50 Urine pH 5.5 (5.0-8.0) 07/04/20 17:50 Ur Specific [place] >= 1.030 (1.001-1.035) 07/04/20 17:50 Urine Protein NEGATIVE mg/dL (NEGATIVE) 07/04/20 17:50 Urine Glucose (UA) 250 mg/dL (NEGATIVE) H 07/04/20 17:50 Urine Ketones TRACE mg/dL (NEGATIVE) H 07/04/20 17:50 Urine Occult Blood NEGATIVE (NEGATIVE) 07/04/20 17:50 Urine Nitrite NEGATIVE (NEGATIVE) 07/04/20 17:50 Urine Bilirubin NEGATIVE (NEGATIVE) 07/04/20 17:50 Urine Urobilinogen 0.2 EU/dL (<2.0) 07/04/20 17:50 Ur Leukocyte Esterase NEGATIVE (NEGATIVE) 07/04/20 17:50 SARS-CoV-2 RNA (ESTEE) NEGATIVE (NEGATIVE) 07/04/20 15:37 - Allergies Allergies/Adverse Reactions: Allergies Allergy/AdvReac Type Severity Reaction Status Date / Time amoxicillin [From Augmentin] Allergy Rash Verified 07/04/20 20:51 clavulanic acid Allergy Rash Verified 07/04/20 20:51 [From Augmentin] - Acknowledgements Anesthesia Type Planned: General Anesthesia Pt an Appropriate Candidate for the Planned Anesthesia: Yes Alternatives and Risks of Anesthesia Discussed w Pt/Guardian: Yes Pt/Guardian Understands and Agrees with Anesthesia Plan: Yes Additional Comments: npo after mn IDDM uncontrolled glu this am 309 htn no cv problems radha discussed use of blood products hct 28 sats running 89-90 % urine output around 600cc per 12 hr shift par no questions possible interscalene block PreAnesthesia Questionnaire Cardiovascular History: Reports: High Cholesterol, Hypertension Endocrine/Metabolic History: Reports: Diabetes, Type II, Hypothyroidism - Infectious Disease History Infectious Disease History: Reports: None - SUBSTANCE USE Tobacco Use Status *Q: Never Tobacco User Second Hand Smoke Exposure: No Recreational Drug Use History: No - HOME MEDS Home Medications: Home Meds Calcium Carbonate [Calcium] 600 mg PO DAILY 07/04/20 [History] Cholecalciferol (Vitamin D3) [Vitamin D3] 500 mg PO DAILY 07/04/20 [History] Insulin Aspart [NovoLOG] 0 - 18 unit SQ TIDMEALS 07/04/20 [History] Insulin Glarg,Human.Rec.Analog [Lantus] 14 units SQ BEDTIME 07/04/20 [History] Insulin Glarg,Human.Rec.Analog [Lantus] 22 unit SQ QAM 07/04/20 [History] Lansoprazole [Prevacid] 15 mg PO DAILY 07/04/20 [History] Levothyroxine Sodium [Synthroid] 75 mcg PO DAILY 07/04/20 [History] Losartan [Cozaar] 50 mg PO BID 07/04/20 [History] Lutein/Minerals/Vit A,C & E [Ocuvite] 1 tab PO DAILY 07/04/20 [History] Pioglitazone [Actos] 30 mg PO DAILY 07/04/20 [History] Risedronate Sodium 35 mg PO WEEKLY 07/04/20 [History] atorvaSTATin [Lipitor] 40 mg PO DAILY 07/04/20 [History] carvediloL [Carvedilol] 25 mg PO BID 07/04/20 [History] hydroCHLOROthiazide [Hydrochlorothiazide] 25 mg PO DAILY 07/04/20 [History] - CURRENT (IN HOUSE) MEDS Current Meds: Current Medications Atorvastatin Calcium (Atorvastatin 40 Mg Tab) 40 mg PO DAILY [facility] Last Admin: 07/05/20 08:36 Dose: 40 mg Documented by: Carvedilol (Carvedilol 25 Mg Tab) 25 mg PO BID [facility] Last Admin: 07/05/20 20:44 Dose: 25 mg Documented by: Dextrose/Water (50% Dextrose In Water 50 Ml Syringe) 50 ml IV ASDIRECTED PRN PRN Reason: Hypoglycemia Glucagon (Glucagon,Human Recombinant 1 Mg Vial) 1 mg IM ASDIRECTED PRN PRN Reason: Hypoglycemia Cefazolin Sodium/Dextrose 2 gm (/ Premix) 50 mls @ 100 mls/hr IV ONCALL [facility] Ibuprofen (Ibuprofen 400 Mg Tab) 400 mg PO Q4H PRN PRN Reason: Pain Insulin Aspart (Insulin Aspart 100 Units/Ml 3 Ml Pen) 0 unit SUBCUT TIDAC [facility]; Protocol Last Admin: 07/05/20 17:51 Dose: 15 unit Documented by: Insulin Glargine (Insulin Glargine,Human Rec. Analog 100 Units/Ml 3 Ml Pen) 7 units SUBCUT BEDTIME [facility] Last Admin: 07/05/20 20:48 Dose: 7 units Documented by: Levothyroxine Sodium (Levothyroxine 75 Mcg Tab) 75 mcg PO ACBRK [facility] Last Admin: 07/05/20 06:52 Dose: 75 mcg Documented by: Omeprazole (Omeprazole 20 Mg Cap.Cr) 20 mg PO BEDTIME [facility] Last Admin: 07/05/20 20:42 Dose: 20 mg Documented by: Ondansetron HCl (Ondansetron 4 Mg Tab.Dis) 4 mg PO Q6H PRN PRN Reason: nausea, able to take PO Oxycodone HCl (Oxycodone 5 Mg Tab) 5 mg PO Q4H PRN PRN Reason: Pain (moderate 4-6) Last Admin: 07/06/20 04:53 Dose: 5 mg Documented by: Discontinued Medications Bupivacaine HCl (Bupivacaine 0.5% 30 Ml Sdv) Confirm Administered Dose 30 ml .ROUTE .STK-MED ONE Stop: 07/06/20 06:57 Dextrose/Water (50% Dextrose In Water 50 Ml Syringe) 50 ml IV ASDIRECTED PRN PRN Reason: Hypoglycemia Fentanyl (Fentanyl 100 Mcg/2 Ml Sdv) Confirm Administered Dose 100 mcg .ROUTE .STK-MED ONE Stop: 07/06/20 07:04 Glucagon (Glucagon,Human Recombinant 1 Mg Vial) 1 mg IM ASDIRECTED PRN PRN Reason: Hypoglycemia Glycopyrrolate (Glycopyrrolate 0.2 Mg/Ml Sdv) Confirm Administered Dose 0.2 mg .ROUTE .STK-MED ONE Stop: 07/06/20 07:01 Heparin Sodium (Porcine) (Heparin Sodium 5,000 Units/Ml Vial) 5,000 units SUBCUT Q8H [facility] Stop: 07/05/20 17:00 Last Admin: 07/05/20 11:20 Dose: 5,000 units Documented by: Hydrochlorothiazide (Hydrochlorothiazide 25 Mg Tab) 25 mg PO DAILY [facility] Sodium Chloride (Normal Saline) 1,000 mls @ 999 mls/hr IV .Bolus ONE Stop: 07/04/20 21:50 Last Admin: 07/04/20 21:03 Dose: 999 mls/hr Documented by: Sodium Chloride (Normal Saline) 1,000 mls @ 100 mls/hr IV CONTINUOUS ONE Stop: 07/06/20 05:21 Last Admin: 07/05/20 20:44 Dose: 100 mls/hr Documented by: Sodium Chloride (Normal Saline) Confirm Administered Dose 20 mls @ as directed .ROUTE .STK-MED ONE Stop: 07/06/20 06:59 Ibuprofen (Ibuprofen 600 Mg Tab) 600 mg PO ONETIME ONE Stop: 07/04/20 19:07 Last Admin: 07/04/20 19:22 Dose: 600 mg Documented by: Insulin Glargine (Insulin Glargine,Human Rec. Analog 100 Units/Ml 3 Ml Pen) 22 units SUBCUT ONETIME ONE Stop: 07/05/20 11:31 Last Admin: 07/05/20 11:18 Dose: 22 units Documented by: Insulin Glargine (Insulin Glargine,Human Rec. Analog 100 Units/Ml 3 Ml Pen) 11 units SUBCUT ONETIME ONE Stop: 07/06/20 05:01 Last Admin: 07/06/20 04:54 Dose: 11 units Documented by: Ketorolac Tromethamine (Ketorolac 30 Mg/Ml Sdv) Confirm Administered Dose 30 mg .ROUTE .STK-MED ONE Stop: 07/06/20 07:01 Lidocaine (Lidocaine 2% 5 Ml Sdv) Confirm Administered Dose 5 ml .ROUTE .STK-MED ONE Stop: 07/06/20 07:01 Losartan Potassium (Losartan 50 Mg Tab) 50 mg PO BID [facility] Midazolam HCl (Midazolam 1 Mg/Ml 2 Ml Sdv) Confirm Administered Dose 2 mg .ROUTE .STMuzicall-MED ONE Stop: 07/06/20 07:03 Midazolam HCl (Midazolam 1 Mg/Ml 2 Ml Sdv) Confirm Administered Dose 2 mg .ROUTE .STMuzicall-MED ONE Stop: 07/06/20 07:03 Ondansetron HCl (Ondansetron 4 Mg/2 Ml Sdv) Confirm Administered Dose 4 mg .ROUTE .STMuzicall-MED ONE Stop: 07/06/20 07:01 Phenylephrine HCl (Phenylephrine 1% 10 Mg/Ml Sdv) Confirm Administered Dose 10 mg .ROUTE .STMuzicall-MED ONE Stop: 07/06/20 06:40 Propofol (Propofol 200 Mg/20 Ml Sdv) Confirm Administered Dose 200 mg .ROUTE .STMuzicall-MED ONE Stop: 07/06/20 07:03 Rocuronium [place] (Rocuronium [place] 50 Mg/5 Ml Syringe) Confirm Administered Dose 50 mg .ROUTE .STMuzicall-MED ONE Stop: 07/06/20 07:01
[2020-07-06] MEDS ORDERED: Insulin Regular, Human 100 Units/ML 10 ML Vial ONE (07:35)
[2020-07-06] MEDS ORDERED: ceFAZolin 1 GM Vial ONE ×2 (07:56→11:23)
[2020-07-06] MEDS ORDERED: fentaNYL 250 MCG/5 ML SDV ONE (07:58)
[2020-07-06] MEDS ORDERED: ceFAZolin 2 GM in Premix Bag 1 BAG IV SCH (08:00)
[2020-07-06] MEDS ORDERED: Ketamine 500 mg/10 ML MDV ONE (08:00)
[2020-07-06] MEDS ORDERED: Sugammadex Sodium 200 MG/2 ML VIAL ONE (08:52)
[2020-07-06] MEDS: Insulin Aspart 100 Units/ML 3 ML Pen SUBCUT SCH ×3 (11:00→18:13)
[2020-07-06] MEDS: Levothyroxine 75 MCG Tab PO SCH (11:00)
[2020-07-06] MEDS: Carvedilol 25 MG Tab PO SCH ×2 (11:00→21:20)
[2020-07-06] MEDS: atorvaSTATin 40 MG Tab PO SCH (11:00)
[2020-07-06] MEDS ORDERED: Acetaminophen 1,000 MG in Premix Bag 1 BAG IV PRN (13:03)
--- NOTE | 2020-07-06 13:19 | PCM.OPNOTE ---
- General Post-Op/Procedure Note Date of Surgery/Procedure: 07/06/20 Operative Procedure(s): (1) Open reduction and internal fixation of right basicervical femoral neck fracture with Elsie [place] hip screw and derotation screw. (2) Open reduction and internal fixation of left segmental humerus shaft fracture with Parth 12 hole proximal humerus locking plate and lag screws Findings: (1) Right comminuted basicervical femoral neck fracture (2) Left segmental humeral shaft fracture Pre Op Diagnosis: (1) Right comminuted basicervical femoral neck fracture. (2) Left segmental humeral shaft fracture Post-Op Diagnosis: (1) Right comminuted basicervical femoral neck fracture. (2) Left segmental humeral shaft fracture Anesthesia Technique: General ET Tube Primary Surgeon: Jayy Blood Care Program Director: Jennifer Lea Care Program Director Was Necessary: Retraction and patient positioning during surgery Pathology: None EBL in mLs: 250 Complications: None Free Text/Narrative:: Patient is a 69-year-old female who fell injuring her left upper arm and right hip. On x-rays she was noted to have a right comminuted basicervical femoral neck fracture and a left segmental humeral shaft fracture. She was admitted to the hospital service and cleared for surgery. We discussed the risks and benefits of open reduction and internal fixation of both fractures. All questions were answered. Patient consented to proceed with surgery. Patient was taken to the operating room. After adequate general anesthesia, she was placed in a supine position on the fracture table with her right foot in boot traction and the left lower extremity in a well leg hatfield. Fracture reduction was done with traction from the table and a bolster placed beneath the right thigh to elevate the femoral shaft. After adequate reduction was noted, the right hip buttock and thigh were prepped and draped in the usual sterile manner. A longitudinal incision was made over the lateral proximal femur. Skin and subcutaneous tissue were incised with the scalpel. The iliotibial band was split between fibers. The vastus lateralis was split between fibers. A hole was drilled for a guidepin in the lateral femoral shaft. The guidepin was then placed through the hole manually up into the femoral head and adjusted as needed in a center center position. A guidepin for a cannulated derotation screw was then placed parallel and superior to the first guidepin. C arm confirmed good position of both and the derotation screw was measured drilled and inserted with a washer. The lag screw was then measured and drilled and inserted. A 2 hole 130 degree Elsie sideplate was then applied and impacted to bone. 2 screws were placed through the plate. Compression screw was inserted and the derotation screw had to be additionally tightened. Good reduction of the f racture was noted and the implants were in good position. Wounds were irrigated. The iliotibial band was closed with interrupted and running #1 Vicryl suture. Deep soft tissue closure was then performed with #2 nylon retention sutures tied over bolsters. Then a running 2-0 Vicryl cutaneous closure with michelle. Sterile dressing was applied. Patient was then transferred to a regular operating room bed and placed in a beachchair position. The left shoulder and upper extremity were prepped and draped in usual sterile manner. A extended deltopectoral approach was used starting over the coracoid process and extending to the distal lateral upper arm. Skin was incised with a scalpel. Subcutaneous tissue was incised with electrocautery. The deltopectoral interval was identified and opened and extended to the deltoid insertion. The anterior compartment fascia was then opened laterally and extended towards the elbow. Care was taken to not extend the incision too far to avoid the radial nerve. The fractures were identified and cleared of hematoma. The middle fragment was reduced to the distal shaft with a clamp and then fixed provisionally with a lag screw. A 12 hole proximal humerus locking plate was applied (Elsie). The plate was reduced to the humerus shaft distally with bicortical screws proximally and distally. A lag screw was then placed through the plate to provide fixation of the segmental fragment. 2 additional bicortical screws were then placed distal to the middle fragment tip. The proximal humerus fragment was then reduced and held with a clamp. A lag screw was placed through the plate to hold the reduction. 3 locking screws and a conventional screw were then placed into the humeral head. C arm was then used to check implant position of fracture reduction and anatomic reduction was noted. The implants were all in good position. Wounds were then irrigated. Fascia was closed with interrupted running #1 Vicryl suture. Subcutaneous tissue was closed with 2-0 nylon suture. Michelle were used for final closure. A sterile dressing was applied and patient was placed in a sling and accompanied the cover in stable condition. Postoperatively the patient will continue on multimodal pain management. Ancef for trophic antibiotics for 2 doses. Aspirin for venous thromboembolism prophylaxis 325 mg enteric-coated daily for 90 days. Restrictions: Patient is nonweightbearing on her left upper extremity for 8 weeks. She has full shoulder elbow hand and wrist range of motion but no weightbearing. She is weightbearing as tolerated on her right lower extremity and may view pivot transfers on her right lower extremity from bed to chair until she is able to weight-bear on her left upper extremity. No sutures or michelle should be removed until she is seen back in clinic here in [place] at 3 weeks. Intake & Output 07/05/20 07/06/20 07/06/20 22:59 06:59 14:59 Intake Total 1400 840 Output Total 600 650 Balance 800 190
[2020-07-06] MEDS ORDERED: diphenhydrAMINE 25 MG Cap PO PRN (13:26)
[2020-07-06] MEDS ORDERED: Ondansetron 4 MG/2 ML SDV IVPUSH PRN (13:26)
[2020-07-06] MEDS ORDERED: Aluminum Hydroxide/Magnesium Hydroxide/Simethicone Susp 30 ML Cup PO PRN (13:26)
[2020-07-06] MEDS ORDERED: Bisacodyl 10 MG Supp RECTAL PRN (13:26)
[2020-07-06] MEDS: fentaNYL 100 MCG/2 ML SDV IVPUSH PRN ×2 (13:40→14:41)
[2020-07-06] MEDS ORDERED: hydrALAZINE 20 MG/ML SDV IVPUSH PRN (14:13)
[2020-07-06] MEDS ORDERED: hydrALAZINE 20 MG/ML SDV ONE (14:17)
--- NOTE | 2020-07-06 14:51 | PCM.PN ---
- General Info Date of Service: 07/06/20 Subjective Update: POD#0: seen at bedside; no acute distress mentions some abdominal bloating but states feeling tired. No CP and or SOB ; speaking in full sentences - Review of Systems General: Denies: Fever Pulmonary: Reports: No Symptoms Cardiovascular: Reports: No Symptoms Gastrointestinal: Denies: Nausea, Vomiting Musculoskeletal: Reports: Arm Pain, Leg Pain Neurological: Reports: No Symptoms - Patient Data Vitals - Most Recent: Last Vital Signs Temp 97.3 F 07/06/20 13:23 Pulse 60 07/06/20 14:44 Resp 14 07/06/20 14:44 BP 150/63 H 07/06/20 14:44 Pulse Ox 95 07/06/20 14:44 Weight - Most Recent: 91.5 kg I&O - Last 24 Hours: Intake & Output 07/05/20 07/06/20 07/06/20 22:59 06:59 14:59 Intake Total 1400 840 Output Total 600 650 250 Balance 800 190 -250 Lab Results Last 24 Hours: Laboratory Results - last 24 hr 07/05/20 07/05/20 07/06/20 Range/Units 17:21 20:35 01:28 WBC (4.0-11.0) K/uL RBC (4.30-5.90) M/uL Hgb (12.0-16.0) g/dL Hct (36.0-46.0) % MCV (80.0-98.0) fL MCH (27.0-32.0) pg MCHC (31.0-37.0) g/dL RDW Std Deviation (28.0-62.0) fl RDW Coeff of Grace (11.0-15.0) % Plt Count (150-400) K/uL MPV (7.40-12.00) fL Neut % (Auto) (48.0-80.0) % Lymph % (Auto) (16.0-40.0) % [place] % (Auto) (0.0-15.0) % Eos % (Auto) (0.0-7.0) % Baso % (Auto) (0.0-1.5) % Neut # (Auto) (1.4-5.7) K/uL Lymph # (Auto) (0.6-2.4) K/uL [place] # (Auto) (0.0-0.8) K/uL Eos # (Auto) (0.0-0.7) K/uL Baso # (Auto) (0.0-0.1) K/uL Nucleated RBC % /100WBC Nucleated RBCs # K/uL Sodium (136-145) mmol/L Potassium (3.5-5.1) mmol/L Chloride (98-107) mmol/L Carbon Dioxide (21.0-32.0) mmol/L BUN (7.0-18.0) mg/dL Creatinine (0.6-1.0) mg/dL Est Cr Clr Drug Dosing mL/min Estimated GFR (MDRD) ml/min Glucose (74-106) mg/dL POC Glucose 415 H* 367 H 327 H (70-99) mg/dL Calcium (8.5-10.1) mg/dL Blood Type Antibody Screen Crossmatch 07/06/20 07/06/20 07/06/20 Range/Units 05:00 05:00 05:00 WBC 5.05 (4.0-11.0) K/uL RBC 2.91 L (4.30-5.90) M/uL Hgb 9.2 L (12.0-16.0) g/dL Hct 27.7 L (36.0-46.0) % MCV 95.2 (80.0-98.0) fL MCH 31.6 (27.0-32.0) pg MCHC 33.2 (31.0-37.0) g/dL RDW Std Deviation 49.8 (28.0-62.0) fl RDW Coeff of Grace 14 (11.0-15.0) % Plt Count 122 L (150-400) K/uL MPV 11.10 (7.40-12.00) fL Neut % (Auto) 69.3 (48.0-80.0) % Lymph % (Auto) 15.2 L (16.0-40.0) % [place] % (Auto) 14.3 (0.0-15.0) % Eos % (Auto) 1.0 (0.0-7.0) % Baso % (Auto) 0.2 (0.0-1.5) % Neut # (Auto) 3.5 (1.4-5.7) K/uL Lymph # (Auto) 0.8 (0.6-2.4) K/uL [place] # (Auto) 0.7 (0.0-0.8) K/uL Eos # (Auto) 0.1 (0.0-0.7) K/uL Baso # (Auto) 0.0 (0.0-0.1) K/uL Nucleated RBC % 0.5 /100WBC Nucleated RBCs # 0 K/uL Sodium 137 (136-145) mmol/L Potassium 3.8 (3.5-5.1) mmol/L Chloride 103 (98-107) mmol/L Carbon Dioxide 25.5 (21.0-32.0) mmol/L BUN 26 H (7.0-18.0) mg/dL Creatinine 1.0 (0.6-1.0) mg/dL Est Cr Clr Drug Dosing 37.60 mL/min Estimated GFR (MDRD) 54.8 ml/min Glucose 309 H (74-106) mg/dL POC Glucose (70-99) mg/dL Calcium 7.7 L (8.5-10.1) mg/dL Blood Type Antibody Screen Crossmatch See Detail 07/06/20 07/06/20 07/06/20 Range/Units 06:34 07:28 09:20 WBC (4.0-11.0) K/uL RBC (4.30-5.90) M/uL Hgb (12.0-16.0) g/dL Hct (36.0-46.0) % MCV (80.0-98.0) fL MCH (27.0-32.0) pg MCHC (31.0-37.0) g/dL RDW Std Deviation (28.0-62.0) fl RDW Coeff of Grace (11.0-15.0) % Plt Count (150-400) K/uL MPV (7.40-12.00) fL Neut % (Auto) (48.0-80.0) % Lymph % (Auto) (16.0-40.0) % [place] % (Auto) (0.0-15.0) % Eos % (Auto) (0.0-7.0) % Baso % (Auto) (0.0-1.5) % Neut # (Auto) (1.4-5.7) K/uL Lymph # (Auto) (0.6-2.4) K/uL [place] # (Auto) (0.0-0.8) K/uL Eos # (Auto) (0.0-0.7) K/uL Baso # (Auto) (0.0-0.1) K/uL Nucleated RBC % /100WBC Nucleated RBCs # K/uL Sodium (136-145) mmol/L Potassium (3.5-5.1) mmol/L Chloride (98-107) mmol/L Carbon Dioxide (21.0-32.0) mmol/L BUN (7.0-18.0) mg/dL Creatinine (0.6-1.0) mg/dL Est Cr Clr Drug Dosing mL/min Estimated GFR (MDRD) ml/min Glucose (74-106) mg/dL POC Glucose 299 H 195 H (70-99) mg/dL Calcium (8.5-10.1) mg/dL Blood Type O NEGATIVE Antibody Screen NEGATIVE Crossmatch See Detail 07/06/20 07/06/20 Range/Units 10:30 12:30 WBC (4.0-11.0) K/uL RBC (4.30-5.90) M/uL Hgb (12.0-16.0) g/dL Hct (36.0-46.0) % MCV (80.0-98.0) fL MCH (27.0-32.0) pg MCHC (31.0-37.0) g/dL RDW Std Deviation (28.0-62.0) fl RDW Coeff of Grace (11.0-15.0) % Plt Count (150-400) K/uL MPV (7.40-12.00) fL Neut % (Auto) (48.0-80.0) % Lymph % (Auto) (16.0-40.0) % [place] % (Auto) (0.0-15.0) % Eos % (Auto) (0.0-7.0) % Baso % (Auto) (0.0-1.5) % Neut # (Auto) (1.4-5.7) K/uL Lymph # (Auto) (0.6-2.4) K/uL [place] # (Auto) (0.0-0.8) K/uL Eos # (Auto) (0.0-0.7) K/uL Baso # (Auto) (0.0-0.1) K/uL Nucleated RBC % /100WBC Nucleated RBCs # K/uL Sodium (136-145) mmol/L Potassium (3.5-5.1) mmol/L Chloride (98-107) mmol/L Carbon Dioxide (21.0-32.0) mmol/L BUN (7.0-18.0) mg/dL Creatinine (0.6-1.0) mg/dL Est Cr Clr Drug Dosing mL/min Estimated GFR (MDRD) ml/min Glucose (74-106) mg/dL POC Glucose 152 H 156 H (70-99) mg/dL Calcium (8.5-10.1) mg/dL Blood Type Antibody Screen Crossmatch Med Orders - Current: Current Medications Acetaminophen (Acetaminophen 325 Mg Tab) 650 mg PO Q6H [facility] Al Hydroxide/Mg Hydroxide (Aluminum Hydroxide/Magnesium Hydroxide/Simethicone Susp 30 Ml Cup) 30 ml PO Q4H PRN PRN Reason: Indigestion Aspirin (Aspirin 325 Mg Tab) 325 mg PO DAILY [facility] Atorvastatin Calcium (Atorvastatin 40 Mg Tab) 40 mg PO DAILY [facility] Last Admin: 07/06/20 11:00 Dose: Not Given Documented by: Bisacodyl (Bisacodyl 10 Mg Supp) 10 mg RECTAL DAILY PRN PRN Reason: Constipation Carvedilol (Carvedilol 25 Mg Tab) 25 mg PO BID [facility] Last Admin: 07/06/20 11:00 Dose: Not Given Documented by: Dextrose/Water (50% Dextrose In Water 50 Ml Syringe) 50 ml IV ASDIRECTED PRN PRN Reason: Hypoglycemia Diphenhydramine HCl (Diphenhydramine 25 Mg Cap) 25 - 50 mg PO Q6H PRN PRN Reason: Itching Docusate Sodium (Docusate Sodium 100 Mg Cap) 100 mg PO Q12HR [facility] Famotidine (Famotidine 20 Mg Tab) 40 mg PO DAILY [facility] Glucagon (Glucagon,Human Recombinant 1 Mg Vial) 1 mg IM ASDIRECTED PRN PRN Reason: Hypoglycemia Hydralazine HCl (Hydralazine 20 Mg/Ml Sdv) 5 mg IVPUSH Q15M PRN PRN Reason: Hypertension Last Admin: 07/06/20 14:20 Dose: 5 mg Documented by: Cefazolin Sodium/Dextrose 2 gm (/ Premix) 50 mls @ 100 mls/hr IV ONCALL [facility] Acetaminophen 1,000 mg/ Premix 100 mls @ 400 mls/hr IV Q6H PRN PRN Reason: Pain Last Admin: 07/06/20 13:47 Dose: 400 mls/hr Documented by: Cefazolin Sodium/Dextrose 2 gm (/ Premix) 50 mls @ 100 mls/hr IV Q8H [facility] Stop: 07/07/20 04:29 Ibuprofen (Ibuprofen 400 Mg Tab) 400 mg PO Q4H PRN PRN Reason: Pain Insulin Aspart (Insulin Aspart 100 Units/Ml 3 Ml Pen) 0 unit SUBCUT TIDAC [facility]; Protocol Last Admin: 07/06/20 11:55 Dose: Not Given Documented by: Insulin Glargine (Insulin Glargine,Human Rec. Analog 100 Units/Ml 3 Ml Pen) 7 units SUBCUT BEDTIME [facility] Last Admin: 07/05/20 20:48 Dose: 7 units Documented by: Levothyroxine Sodium (Levothyroxine 75 Mcg Tab) 75 mcg PO ACBRK [facility] Last Admin: 07/06/20 11:00 Dose: Not Given Documented by: Morphine Sulfate (Morphine 2 Mg/Ml Syringe) 1 - 2 mg IVPUSH Q3H PRN PRN Reason: Pain Omeprazole (Omeprazole 20 Mg Cap.Cr) 20 mg PO BEDTIME [facility] Last Admin: 07/05/20 20:42 Dose: 20 mg Documented by: Ondansetron HCl (Ondansetron 4 Mg Tab.Dis) 4 mg PO Q6H PRN PRN Reason: nausea, able to take PO Ondansetron HCl (Ondansetron 4 Mg/2 Ml Sdv) 4 mg IVPUSH Q6H PRN PRN Reason: Nausea/Vomiting Oxycodone HCl (Oxycodone 5 Mg Tab) 5 mg PO Q4H PRN PRN Reason: Pain (moderate 4-6) Last Admin: 07/06/20 04:53 Dose: 5 mg Documented by: Oxycodone HCl (Oxycodone 5 Mg Tab) 5 - 10 mg PO Q4H PRN PRN Reason: Pain Polyethylene Glycol (Polyethylene Glycol 3350 Powder 17 Gm Packet) 17 gm PO DAILY [facility] Discontinued Medications Bupivacaine HCl (Bupivacaine 0.5% 30 Ml Sdv) Confirm Administered Dose 30 ml .ROUTE .STK-MED ONE Stop: 07/06/20 06:57 Cefazolin Sodium (Cefazolin 1 Gm Vial) Confirm Administered Dose 2 gm .ROUTE .STK-MED ONE Stop: 07/06/20 07:57 Cefazolin Sodium (Cefazolin 1 Gm Vial) Confirm Administered Dose 2 gm .ROUTE .STK-MED ONE Stop: 07/06/20 11:24 Dextrose/Water (50% Dextrose In Water 50 Ml Syringe) 50 ml IV ASDIRECTED PRN PRN Reason: Hypoglycemia Fentanyl (Fentanyl 100 Mcg/2 Ml Sdv) Confirm Administered Dose 100 mcg .ROUTE .STK-MED ONE Stop: 07/06/20 07:04 Fentanyl (Fentanyl 250 Mcg/5 Ml Sdv) Confirm Administered Dose 250 mcg .ROUTE .STK-MED ONE Stop: 07/06/20 07:59 Fentanyl (Fentanyl 100 Mcg/2 Ml Sdv) 50 mcg IVPUSH Q5M PRN PRN Reason: Pain Last Admin: 07/06/20 14:41 Dose: 50 mcg Documented by: Glucagon (Glucagon,Human Recombinant 1 Mg Vial) 1 mg IM ASDIRECTED PRN PRN Reason: Hypoglycemia Glycopyrrolate (Glycopyrrolate 0.2 Mg/Ml Sdv) Confirm Administered Dose 0.2 mg .ROUTE .STK-MED ONE Stop: 07/06/20 07:01 Heparin Sodium (Porcine) (Heparin Sodium 5,000 Units/Ml Vial) 5,000 units SUBCUT Q8H [facility] Stop: 07/05/20 17:00 Last Admin: 07/05/20 11:20 Dose: 5,000 units Documented by: Hydralazine HCl (Hydralazine 20 Mg/Ml Sdv) Confirm Administered Dose 20 mg .ROUTE .STK-MED ONE Stop: 07/06/20 14:18 Hydrochlorothiazide (Hydrochlorothiazide 25 Mg Tab) 25 mg PO DAILY [facility] Sodium Chloride (Normal Saline) 1,000 mls @ 999 mls/hr IV .Bolus ONE Stop: 07/04/20 21:50 Last Admin: 07/04/20 21:03 Dose: 999 mls/hr Documented by: Sodium Chloride (Normal Saline) 1,000 mls @ 100 mls/hr IV CONTINUOUS ONE Stop: 07/06/20 05:21 Last Admin: 07/05/20 20:44 Dose: 100 mls/hr Documented by: Sodium Chloride (Normal Saline) Confirm Administered Dose 20 mls @ as directed .ROUTE .STK-MED ONE Stop: 07/06/20 06:59 Sodium Chloride (Normal Saline) Confirm Administered Dose 20 mls @ as directed .ROUTE .STK-MED ONE Stop: 07/06/20 07:57 Sodium Chloride (Normal Saline) Confirm Administered Dose 20 mls @ as directed .ROUTE .STK-MED ONE Stop: 07/06/20 11:24 Acetaminophen (Ofirmev 1000 Mg/100 Ml) Confirm Administered Dose 100 mls @ as directed .ROUTE .STK-MED ONE Stop: 07/06/20 13:41 Ibuprofen (Ibuprofen 600 Mg Tab) 600 mg PO ONETIME ONE Stop: 07/04/20 19:07 Last Admin: 07/04/20 19:22 Dose: 600 mg Documented by: Insulin Glargine (Insulin Glargine,Human Rec. Analog 100 Units/Ml 3 Ml Pen) 22 units SUBCUT ONETIME ONE Stop: 07/05/20 11:31 Last Admin: 07/05/20 11:18 Dose: 22 units Documented by: Insulin Glargine (Insulin Glargine,Human Rec. Analog 100 Units/Ml 3 Ml Pen) 11 units SUBCUT ONETIME ONE Stop: 07/06/20 05:01 Last Admin: 07/06/20 04:54 Dose: 11 units Documented by: Insulin Human Regular (Insulin Regular, Human 100 Units/Ml 10 Ml Vial) Confirm Administered Dose 1,000 unit .ROUTE .STK-MED ONE Stop: 07/06/20 07:36 Ketamine HCl (Ketamine 500 Mg/10 Ml Mdv) Confirm Administered Dose 500 mg .ROUTE .STK-MED ONE Stop: 07/06/20 08:01 Ketorolac Tromethamine (Ketorolac 30 Mg/Ml Sdv) Confirm Administered Dose 30 mg .ROUTE .STK-MED ONE Stop: 07/06/20 07:01 Lidocaine (Lidocaine 2% 5 Ml Sdv) Confirm Administered Dose 5 ml .ROUTE .STK-MED ONE Stop: 07/06/20 07:01 Losartan Potassium (Losartan 50 Mg Tab) 50 mg PO BID [facility] Midazolam HCl (Midazolam 1 Mg/Ml 2 Ml Sdv) Confirm Administered Dose 2 mg .ROUTE .STK-MED ONE Stop: 07/06/20 07:03 Midazolam HCl (Midazolam 1 Mg/Ml 2 Ml Sdv) Confirm Administered Dose 2 mg .ROUTE .STK-MED ONE Stop: 07/06/20 07:03 Ondansetron HCl (Ondansetron 4 Mg/2 Ml Sdv) Confirm Administered Dose 4 mg .ROUTE .STK-MED ONE Stop: 07/06/20 07:01 Phenylephrine HCl (Phenylephrine 1% 10 Mg/Ml Sdv) Confirm Administered Dose 10 mg .ROUTE .STK-MED ONE Stop: 07/06/20 06:40 Propofol (Propofol 200 Mg/20 Ml Sdv) Confirm Administered Dose 200 mg .ROUTE .STK-MED ONE Stop: 07/06/20 07:03 Rocuronium [place] (Rocuronium [place] 50 Mg/5 Ml Syringe) Confirm Administered Dose 50 mg .ROUTE .[facility]-MED ONE Stop: 07/06/20 07:01 Rocuronium [place] (Rocuronium [place] 50 Mg/5 Ml Syringe) Confirm Administered Dose 50 mg .ROUTE .ST-MED ONE Stop: 07/06/20 10:28 Sugammadex Sodium (Sugammadex Sodium 200 Mg/2 Ml Vial) Confirm Administered Dose 200 mg .ROUTE .STK-MED ONE Stop: 07/06/20 08:53 Tranexamic Acid (Tranexamic Acid 1,000 Mg/10 Ml Amp) Confirm Administered Dose 1,000 mg .ROUTE .ST-MED ONE Stop: 07/06/20 09:40 - Exam Urinary Catheter Total Time: 0Days 0Hours General: Alert, Oriented, No Acute Distress HEENT: EOMI Neck: Supple Lungs: Clear to Auscultation, Normal Respiratory Effort Cardiovascular: Regular Rate, Regular Rhythm GI/Abdominal Exam: Soft Neurological: No New Focal Deficit Psy/Mental Status: Alert - Patient Data Lab Results Last 24 hrs: Laboratory Results - last 24 hr 07/05/20 07/05/20 07/06/20 Range/Units 17:21 20:35 01:28 WBC (4.0-11.0) K/uL RBC (4.30-5.90) M/uL Hgb (12.0-16.0) g/dL Hct (36.0-46.0) % MCV (80.0-98.0) fL MCH (27.0-32.0) pg MCHC (31.0-37.0) g/dL RDW Std Deviation (28.0-62.0) fl RDW Coeff of Grace (11.0-15.0) % Plt Count (150-400) K/uL MPV (7.40-12.00) fL Neut % (Auto) (48.0-80.0) % Lymph % (Auto) (16.0-40.0) % [place] % (Auto) (0.0-15.0) % Eos % (Auto) (0.0-7.0) % Baso % (Auto) (0.0-1.5) % Neut # (Auto) (1.4-5.7) K/uL Lymph # (Auto) (0.6-2.4) K/uL [place] # (Auto) (0.0-0.8) K/uL Eos # (Auto) (0.0-0.7) K/uL Baso # (Auto) (0.0-0.1) K/uL Nucleated RBC % /100WBC Nucleated RBCs # K/uL Sodium (136-145) mmol/L Potassium (3.5-5.1) mmol/L Chloride (98-107) mmol/L Carbon Dioxide (21.0-32.0) mmol/L BUN (7.0-18.0) mg/dL Creatinine (0.6-1.0) mg/dL Est Cr Clr Drug Dosing mL/min Estimated GFR (MDRD) ml/min Glucose (74-106) mg/dL POC Glucose 415 H* 367 H 327 H (70-99) mg/dL Calcium (8.5-10.1) mg/dL Blood Type Antibody Screen Crossmatch 07/06/20 07/06/20 07/06/20 Range/Units 05:00 05:00 05:00 WBC 5.05 (4.0-11.0) K/uL RBC 2.91 L (4.30-5.90) M/uL Hgb 9.2 L (12.0-16.0) g/dL Hct 27.7 L (36.0-46.0) % MCV 95.2 (80.0-98.0) fL MCH 31.6 (27.0-32.0) pg MCHC 33.2 (31.0-37.0) g/dL RDW Std Deviation 49.8 (28.0-62.0) fl RDW Coeff of Grace 14 (11.0-15.0) % Plt Count 122 L (150-400) K/uL MPV 11.10 (7.40-12.00) fL Neut % (Auto) 69.3 (48.0-80.0) % Lymph % (Auto) 15.2 L (16.0-40.0) % [place] % (Auto) 14.3 (0.0-15.0) % Eos % (Auto) 1.0 (0.0-7.0) % Baso % (Auto) 0.2 (0.0-1.5) % Neut # (Auto) 3.5 (1.4-5.7) K/uL Lymph # (Auto) 0.8 (0.6-2.4) K/uL [place] # (Auto) 0.7 (0.0-0.8) K/uL Eos # (Auto) 0.1 (0.0-0.7) K/uL Baso # (Auto) 0.0 (0.0-0.1) K/uL Nucleated RBC % 0.5 /100WBC Nucleated RBCs # 0 K/uL Sodium 137 (136-145) mmol/L Potassium 3.8 (3.5-5.1) mmol/L Chloride 103 (98-107) mmol/L Carbon Dioxide 25.5 (21.0-32.0) mmol/L BUN 26 H (7.0-18.0) mg/dL Creatinine 1.0 (0.6-1.0) mg/dL Est Cr Clr Drug Dosing 37.60 mL/min Estimated GFR (MDRD) 54.8 ml/min Glucose 309 H (74-106) mg/dL POC Glucose (70-99) mg/dL Calcium 7.7 L (8.5-10.1) mg/dL Blood Type Antibody Screen Crossmatch See Detail 07/06/20 07/06/20 07/06/20 Range/Units 06:34 07:28 09:20 WBC (4.0-11.0) K/uL RBC (4.30-5.90) M/uL Hgb (12.0-16.0) g/dL Hct (36.0-46.0) % MCV (80.0-98.0) fL MCH (27.0-32.0) pg MCHC (31.0-37.0) g/dL RDW Std Deviation (28.0-62.0) fl RDW Coeff of Grace (11.0-15.0) % Plt Count (150-400) K/uL MPV (7.40-12.00) fL Neut % (Auto) (48.0-80.0) % Lymph % (Auto) (16.0-40.0) % [place] % (Auto) (0.0-15.0) % Eos % (Auto) (0.0-7.0) % Baso % (Auto) (0.0-1.5) % Neut # (Auto) (1.4-5.7) K/uL Lymph # (Auto) (0.6-2.4) K/uL [place] # (Auto) (0.0-0.8) K/uL Eos # (Auto) (0.0-0.7) K/uL Baso # (Auto) (0.0-0.1) K/uL Nucleated RBC % /100WBC Nucleated RBCs # K/uL Sodium (136-145) mmol/L Potassium (3.5-5.1) mmol/L Chloride (98-107) mmol/L Carbon Dioxide (21.0-32.0) mmol/L BUN (7.0-18.0) mg/dL Creatinine (0.6-1.0) mg/dL Est Cr Clr Drug Dosing mL/min Estimated GFR (MDRD) ml/min Glucose (74-106) mg/dL POC Glucose 299 H 195 H (70-99) mg/dL Calcium (8.5-10.1) mg/dL Blood Type O NEGATIVE Antibody Screen NEGATIVE Crossmatch See Detail 07/06/20 07/06/20 Range/Units 10:30 12:30 WBC (4.0-11.0) K/uL RBC (4.30-5.90) M/uL Hgb (12.0-16.0) g/dL Hct (36.0-46.0) % MCV (80.0-98.0) fL MCH (27.0-32.0) pg MCHC (31.0-37.0) g/dL RDW Std Deviation (28.0-62.0) fl RDW Coeff of Grace (11.0-15.0) % Plt Count (150-400) K/uL MPV (7.40-12.00) fL Neut % (Auto) (48.0-80.0) % Lymph % (Auto) (16.0-40.0) % [place] % (Auto) (0.0-15.0) % Eos % (Auto) (0.0-7.0) % Baso % (Auto) (0.0-1.5) % Neut # (Auto) (1.4-5.7) K/uL Lymph # (Auto) (0.6-2.4) K/uL [place] # (Auto) (0.0-0.8) K/uL Eos # (Auto) (0.0-0.7) K/uL Baso # (Auto) (0.0-0.1) K/uL Nucleated RBC % /100WBC Nucleated RBCs # K/uL Sodium (136-145) mmol/L Potassium (3.5-5.1) mmol/L Chloride (98-107) mmol/L Carbon Dioxide (21.0-32.0) mmol/L BUN (7.0-18.0) mg/dL Creatinine (0.6-1.0) mg/dL Est Cr Clr Drug Dosing mL/min Estimated GFR (MDRD) ml/min Glucose (74-106) mg/dL POC Glucose 152 H 156 H (70-99) mg/dL Calcium (8.5-10.1) mg/dL Blood Type Antibody Screen Crossmatch Result Diagrams: 07/06/20 05:00 07/06/20 05:00 Sepsis Event Note - Evaluation Sepsis Screening Result: No Definite Risk - Focused Exam Vital Signs: Vital Signs Temp Pulse Resp BP Pulse Ox 07/06/20 14:44 60 14 150/63 H 95 07/06/20 14:35 61 15 159/72 H 61 L 07/06/20 14:30 60 16 156/62 H 96 05/19/21 14:25 61 15 171/69 H 95 07/06/20 14:20 61 17 168/71 H 95 07/06/20 14:10 59 L 15 177/72 H 96 07/06/20 14:05 13 161/62 H 96 07/06/20 14:00 60 13 165/66 H 93 L 07/06/20 13:55 60 15 174/72 H 99 07/06/20 13:50 59 L 17 189/79 H 99 07/06/20 13:45 57 L 15 185/87 H 3 L 07/06/20 13:40 58 L 15 166/84 H 98 07/06/20 13:35 58 L 15 179/76 H 97 07/06/20 13:30 56 L 12 131/71 99 07/06/20 13:23 97.3 F 52 L 15 124/68 98 07/06/20 07:54 98.2 F 65 16 174/70 H 95 07/06/20 05:00 97.8 F 68 16 140/71 93 L - Problem List & Annotations (1) Closed right hip fracture SNOMED Code(s): 780270726 Code(s): S72.001A - FRACTURE OF UNSP PART OF NECK OF RIGHT FEMUR, INIT Status: Acute Current Visit: Yes (2) Left humeral fracture SNOMED Code(s): 94478046 Code(s): S42.302A - UNSP FRACTURE OF SHAFT OF HUMERUS, LEFT ARM, INIT Status: Acute Current Visit: Yes (3) Diabetes SNOMED Code(s): 57007209 Code(s): E11.9 - TYPE 2 DIABETES MELLITUS WITHOUT COMPLICATIONS Status: Acute Current Visit: Yes (4) Hypertension SNOMED Code(s): 62368752 Code(s): I10 - ESSENTIAL (PRIMARY) HYPERTENSION Status: Acute Current Visit: Yes (5) Obesity SNOMED Code(s): 119807653, 544920148 Code(s): E66.9 - OBESITY, UNSPECIFIED Status: Acute Current Visit: Yes - Problem List Review Problem List Initiated/Reviewed/Updated: Yes - My Orders Last 24 Hours: My Active Orders 07/05/20 Dinner NPO After Midnight [Nothing per Oral After Midnight Diet] [DIET] 07/05/20 19:24 Dextrose 50% in Water 50 ml IV ASDIRECTED PRN Glucagon,Human Recombinant [GlucaGen] 1 mg IM ASDIRECTED PRN 07/05/20 21:00 Insulin Glarg,Human.Rec.Analog [LantUS Solostar] 7 units SUBCUT BEDTIME 07/06/20 13:45 Code Status [Resuscitation Status] Routine 07/07/20 05:11 BASIC METABOLIC PANEL,BMP [CHEM] AM CBC WITH AUTO DIFF [HEME] AM - Plan Plan:: Assessment: 1. Left humeral fracture/right hip fracture status post mechanical fall 2. GIANNI 3. Hyperglycemia and a type II diabetic 4. Past medical history: Type 2 diabetes, hypertension, hyperlipidemia hypothyroidism Plan 1. Left humerus /right hip fracture: S/p right hip/left humerus repair : seen at bedside; tired but alert and oriented. Endorses some abdominal discomfort but no acute/overt pain Continue pain control and DVT prophylaxis per primary surgical team Diet advanced to Diabetic diet; resume night home LA insulin and consider LA insulin in am if tolerating diet and BG appropriate. 2. Type II DM: elevated A1c; TID accuchecks + SSI started 3. HTN: restart losartan and HCTZ; 4. Continue home medications otherwise
--- NOTE | 2020-07-06 16:01 | PCM.POSTAN ---
POST ANESTHESIA ASSESSMENT - MENTAL STATUS Mental Status: Alert, Oriented - VITAL SIGNS Vital Signs: Last Vital Signs Temp 97.4 F 07/06/20 15:37 Pulse 58 L 07/06/20 15:45 Resp 18 07/06/20 15:45 BP 152/70 H 07/06/20 15:45 Pulse Ox 94 L 07/06/20 15:45 - RESPIRATORY Respiratory Status: Respiratory Rate WNL, Airway Patent, O2 Saturation Stable - CARDIOVASCULAR CV Status: Pulse Rate WNL, Blood Pressure Stable - GASTROINTESTINAL GI Status: No Symptoms - POST OP HYDRATION Hydration Status: Adequate & Stable
[2020-07-06] MEDS: Aspirin 325 MG Tab PO SCH (18:15)
[2020-07-06] MEDS: ceFAZolin 2 GM in Premix Bag 1 BAG IV SCH (20:10)
[2020-07-06] MEDS: Acetaminophen 325 MG Tab PO SCH (21:19)
[2020-07-06] MEDS: Omeprazole 20 MG Cap.CR PO SCH (21:20)
[2020-07-06] MEDS: Insulin Glargine,Human Rec. Analog 100 Units/ML 3 ML Pen SUBCUT SCH (21:23)
[2020-07-07] MEDS: ceFAZolin 2 GM in Premix Bag 1 BAG IV SCH (03:32)
[2020-07-07] MEDS: Acetaminophen 325 MG Tab PO SCH ×4 (03:32→21:53)
[2020-07-07 06:02] LABS: CARBON DIOXIDE,CO2 23.5 mmol/L (21.0-32.0); POTASSIUM,K 4.3 mmol/L (3.5-5.1)
[2020-07-07] MEDS: Polyethylene Glycol 3350 Powder 17 GM Packet PO SCH (07:59)
[2020-07-07] MEDS: atorvaSTATin 40 MG Tab PO SCH (08:00)
[2020-07-07] MEDS: Losartan 50 MG Tab PO SCH ×2 (08:00→21:51)
[2020-07-07] MEDS: Levothyroxine 75 MCG Tab PO SCH (08:00)
[2020-07-07] MEDS: Docusate Sodium 100 MG Cap PO SCH ×2 (08:00→21:50)
[2020-07-07] MEDS: Aspirin 325 MG Tab PO SCH (08:00)
[2020-07-07] MEDS: Famotidine 20 MG Tab PO SCH (08:01)
[2020-07-07] MEDS: Carvedilol 25 MG Tab PO SCH ×2 (08:03→21:50)
[2020-07-07] MEDS: Insulin Aspart 100 Units/ML 3 ML Pen SUBCUT SCH ×3 (08:06→17:56)
--- NOTE | 2020-07-07 08:29 | PCM48HPAN ---
Post Anesthesia Note - EVALUATION WITHIN 48HRS OF ANESTHETIC Vital Signs in Normal Range: Yes Patient Participated in Evaluation: Yes Respiratory Function Stable: Yes Airway Patent: Yes Cardiovascular Function Stable: Yes Hydration Status Stable: Yes Pain Control Satisfactory: Yes Nausea and Vomiting Control Satisfactory: Yes Mental Status Recovered: Yes Vital Signs: Last Vital Signs Temp 36.6 C 07/07/20 07:00 Pulse 68 07/07/20 08:03 Resp 18 07/07/20 07:00 BP 115/56 L 07/07/20 08:03 Pulse Ox 94 L 07/07/20 07:00
--- NOTE | 2020-07-07 08:48 | PCM.SURGPN ---
- General Info Date of Service: 07/07/20 (0835) Date of Surgery/Procedure: 07/06/20 (s/p ORIF Right femoral neck fracture and ORIF Left humerus fracture) POD#: 1 Functional Status: Reports: Pain Controlled, Tolerating Diet (drinking water without N/V), Urinating (weeks catheter ). Denies: Ambulating - Review of Systems General: Denies: Fever Musculoskeletal: Reports: Other (right hip and left arm pain s/p ORIFs) Neurological: Denies: Confusion Psychiatric: Denies: Confusion - Patient Data Vitals - Most Recent: Last Vital Signs Temp 36.6 C 07/07/20 07:00 Pulse 68 07/07/20 08:03 Resp 18 07/07/20 07:00 BP 115/56 L 07/07/20 08:03 Pulse Ox 94 L 07/07/20 07:00 Weight - Most Recent: 91.5 kg I&O - Last 24 Hours: Intake & Output 07/06/20 07/07/20 07/07/20 22:59 06:59 14:59 Intake Total 1000 Output Total 450 Balance 550 Lab Results Last 24 Hrs: Laboratory Results - last 24 hr 07/06/20 07/06/20 07/06/20 Range/Units 05:00 07:28 09:20 WBC (4.0-11.0) K/uL RBC (4.30-5.90) M/uL Hgb (12.0-16.0) g/dL Hct (36.0-46.0) % MCV (80.0-98.0) fL MCH (27.0-32.0) pg MCHC (31.0-37.0) g/dL RDW Std Deviation (28.0-62.0) fl RDW Coeff of Grace (11.0-15.0) % Plt Count (150-400) K/uL MPV (7.40-12.00) fL Neut % (Auto) (48.0-80.0) % Lymph % (Auto) (16.0-40.0) % [place] % (Auto) (0.0-15.0) % Eos % (Auto) (0.0-7.0) % Baso % (Auto) (0.0-1.5) % Neut # (Auto) (1.4-5.7) K/uL Lymph # (Auto) (0.6-2.4) K/uL [place] # (Auto) (0.0-0.8) K/uL Eos # (Auto) (0.0-0.7) K/uL Baso # (Auto) (0.0-0.1) K/uL Nucleated RBC % /100WBC Nucleated RBCs # K/uL Sodium (136-145) mmol/L Potassium (3.5-5.1) mmol/L Chloride (98-107) mmol/L Carbon Dioxide (21.0-32.0) mmol/L BUN (7.0-18.0) mg/dL Creatinine (0.6-1.0) mg/dL Est Cr Clr Drug Dosing mL/min Estimated GFR (MDRD) ml/min Glucose (74-106) mg/dL POC Glucose 195 H (70-99) mg/dL Calcium (8.5-10.1) mg/dL Blood Type O NEGATIVE Antibody Screen NEGATIVE Crossmatch See Detail See Detail 07/06/20 07/06/20 07/06/20 Range/Units 10:30 12:30 14:14 WBC (4.0-11.0) K/uL RBC (4.30-5.90) M/uL Hgb (12.0-16.0) g/dL Hct (36.0-46.0) % MCV (80.0-98.0) fL MCH (27.0-32.0) pg MCHC (31.0-37.0) g/dL RDW Std Deviation (28.0-62.0) fl RDW Coeff of Grace (11.0-15.0) % Plt Count (150-400) K/uL MPV (7.40-12.00) fL Neut % (Auto) (48.0-80.0) % Lymph % (Auto) (16.0-40.0) % [place] % (Auto) (0.0-15.0) % Eos % (Auto) (0.0-7.0) % Baso % (Auto) (0.0-1.5) % Neut # (Auto) (1.4-5.7) K/uL Lymph # (Auto) (0.6-2.4) K/uL [place] # (Auto) (0.0-0.8) K/uL Eos # (Auto) (0.0-0.7) K/uL Baso # (Auto) (0.0-0.1) K/uL Nucleated RBC % /100WBC Nucleated RBCs # K/uL Sodium (136-145) mmol/L Potassium (3.5-5.1) mmol/L Chloride (98-107) mmol/L Carbon Dioxide (21.0-32.0) mmol/L BUN (7.0-18.0) mg/dL Creatinine (0.6-1.0) mg/dL Est Cr Clr Drug Dosing mL/min Estimated GFR (MDRD) ml/min Glucose (74-106) mg/dL POC Glucose 152 H 156 H 201 H (70-99) mg/dL Calcium (8.5-10.1) mg/dL Blood Type Antibody Screen Crossmatch 07/06/20 07/06/20 07/07/20 Range/Units 17:08 21:17 05:28 WBC 7.74 (4.0-11.0) K/uL RBC 3.30 L (4.30-5.90) M/uL Hgb 10.4 L (12.0-16.0) g/dL Hct 30.8 L (36.0-46.0) % MCV 93.3 (80.0-98.0) fL MCH 31.5 (27.0-32.0) pg MCHC 33.8 (31.0-37.0) g/dL RDW Std Deviation 51.1 (28.0-62.0) fl RDW Coeff of Grace 15 (11.0-15.0) % Plt Count 110 L (150-400) K/uL MPV 11.80 (7.40-12.00) fL Neut % (Auto) 78.4 (48.0-80.0) % Lymph % (Auto) 7.0 L (16.0-40.0) % [place] % (Auto) 14.6 (0.0-15.0) % Eos % (Auto) 0.0 (0.0-7.0) % Baso % (Auto) 0.0 (0.0-1.5) % Neut # (Auto) 6.1 H (1.4-5.7) K/uL Lymph # (Auto) 0.5 L (0.6-2.4) K/uL [place] # (Auto) 1.1 H (0.0-0.8) K/uL Eos # (Auto) 0.0 (0.0-0.7) K/uL Baso # (Auto) 0.0 (0.0-0.1) K/uL Nucleated RBC % 0.0 /100WBC Nucleated RBCs # 0 K/uL Sodium (136-145) mmol/L Potassium (3.5-5.1) mmol/L Chloride (98-107) mmol/L Carbon Dioxide (21.0-32.0) mmol/L BUN (7.0-18.0) mg/dL Creatinine (0.6-1.0) mg/dL Est Cr Clr Drug Dosing mL/min Estimated GFR (MDRD) ml/min Glucose (74-106) mg/dL POC Glucose 271 H 336 H (70-99) mg/dL Calcium (8.5-10.1) mg/dL Blood Type Antibody Screen Crossmatch 07/07/20 07/07/20 Range/Units 05:28 06:25 WBC (4.0-11.0) K/uL RBC (4.30-5.90) M/uL Hgb (12.0-16.0) g/dL Hct (36.0-46.0) % MCV (80.0-98.0) fL MCH (27.0-32.0) pg MCHC (31.0-37.0) g/dL RDW Std Deviation (28.0-62.0) fl RDW Coeff of Grace (11.0-15.0) % Plt Count (150-400) K/uL MPV (7.40-12.00) fL Neut % (Auto) (48.0-80.0) % Lymph % (Auto) (16.0-40.0) % [place] % (Auto) (0.0-15.0) % Eos % (Auto) (0.0-7.0) % Baso % (Auto) (0.0-1.5) % Neut # (Auto) (1.4-5.7) K/uL Lymph # (Auto) (0.6-2.4) K/uL [place] # (Auto) (0.0-0.8) K/uL Eos # (Auto) (0.0-0.7) K/uL Baso # (Auto) (0.0-0.1) K/uL Nucleated RBC % /100WBC Nucleated RBCs # K/uL Sodium 131 L (136-145) mmol/L Potassium 4.3 (3.5-5.1) mmol/L Chloride 100 (98-107) mmol/L Carbon Dioxide 23.5 (21.0-32.0) mmol/L BUN 29 H (7.0-18.0) mg/dL Creatinine 1.2 H (0.6-1.0) mg/dL Est Cr Clr Drug Dosing 31.33 mL/min Estimated GFR (MDRD) 44.4 ml/min Glucose 345 H (74-106) mg/dL POC Glucose 317 H (70-99) mg/dL Calcium 7.3 L (8.5-10.1) mg/dL Blood Type Antibody Screen Crossmatch Med Orders - Current: Current Medications Acetaminophen (Acetaminophen 325 Mg Tab) 650 mg PO Q6H [facility] Last Admin: 07/07/20 08:01 Dose: 650 mg Documented by: Al Hydroxide/Mg Hydroxide (Aluminum Hydroxide/Magnesium Hydroxide/Simethicone Susp 30 Ml Cup) 30 ml PO Q4H PRN PRN Reason: Indigestion Aspirin (Aspirin 325 Mg Tab) 325 mg PO DAILY [facility] Last Admin: 07/07/20 08:00 Dose: 325 mg Documented by: Atorvastatin Calcium (Atorvastatin 40 Mg Tab) 40 mg PO DAILY [facility] Last Admin: 07/07/20 08:00 Dose: 40 mg Documented by: Bisacodyl (Bisacodyl 10 Mg Supp) 10 mg RECTAL DAILY PRN PRN Reason: Constipation Carvedilol (Carvedilol 25 Mg Tab) 25 mg PO BID [facility] Last Admin: 07/07/20 08:03 Dose: 25 mg Documented by: Dextrose/Water (50% Dextrose In Water 50 Ml Syringe) 50 ml IV ASDIRECTED PRN PRN Reason: Hypoglycemia Diphenhydramine HCl (Diphenhydramine 25 Mg Cap) 25 - 50 mg PO Q6H PRN PRN Reason: Itching Docusate Sodium (Docusate Sodium 100 Mg Cap) 100 mg PO Q12HR [facility] Last Admin: 07/07/20 08:00 Dose: 100 mg Documented by: Famotidine (Famotidine 20 Mg Tab) 40 mg PO DAILY [facility] Last Admin: 07/07/20 08:01 Dose: 40 mg Documented by: Glucagon (Glucagon,Human Recombinant 1 Mg Vial) 1 mg IM ASDIRECTED PRN PRN Reason: Hypoglycemia Hydralazine HCl (Hydralazine 20 Mg/Ml Sdv) 5 mg IVPUSH Q15M PRN PRN Reason: Hypertension Last Admin: 07/06/20 14:20 Dose: 5 mg Documented by: Cefazolin Sodium/Dextrose 2 gm (/ Premix) 50 mls @ 100 mls/hr IV ONCALL [facility] Last Admin: 07/06/20 19:54 Dose: 100 mls/hr Documented by: Acetaminophen 1,000 mg/ Premix 100 mls @ 400 mls/hr IV Q6H PRN PRN Reason: Pain Last Admin: 07/06/20 13:47 Dose: 400 mls/hr Documented by: Ibuprofen (Ibuprofen 400 Mg Tab) 400 mg PO Q4H PRN PRN Reason: Pain Insulin Aspart (Insulin Aspart 100 Units/Ml 3 Ml Pen) 0 unit SUBCUT TIDAC [facility]; Protocol Last Admin: 07/07/20 08:06 Dose: 12 unit Documented by: Insulin Glargine (Insulin Glargine,Human Rec. Analog 100 Units/Ml 3 Ml Pen) 14 units SUBCUT BEDTIME [facility] Last Admin: 07/06/20 21:23 Dose: 14 units Documented by: Levothyroxine Sodium (Levothyroxine 75 Mcg Tab) 75 mcg PO ACBRK [facility] Last Admin: 07/07/20 08:00 Dose: 75 mcg Documented by: Losartan Potassium (Losartan 50 Mg Tab) 50 mg PO BID [facility] Last Admin: 07/07/20 08:00 Dose: 50 mg Documented by: Morphine Sulfate (Morphine 2 Mg/Ml Syringe) 1 - 2 mg IVPUSH Q3H PRN PRN Reason: Pain Omeprazole (Omeprazole 20 Mg Cap.Cr) 20 mg PO BEDTIME [facility] Last Admin: 07/06/20 21:20 Dose: 20 mg Documented by: Ondansetron HCl (Ondansetron 4 Mg Tab.Dis) 4 mg PO Q6H PRN PRN Reason: nausea, able to take PO Ondansetron HCl (Ondansetron 4 Mg/2 Ml Sdv) 4 mg IVPUSH Q6H PRN PRN Reason: Nausea/Vomiting Oxycodone HCl (Oxycodone 5 Mg Tab) 5 - 10 mg PO Q4H PRN PRN Reason: Pain Last Admin: 07/06/20 22:29 Dose: 5 mg Documented by: Polyethylene Glycol (Polyethylene Glycol 3350 Powder 17 Gm Packet) 17 gm PO DAILY [facility] Last Admin: 07/07/20 07:59 Dose: 17 gm Documented by: Discontinued Medications Bupivacaine HCl (Bupivacaine 0.5% 30 Ml Sdv) Confirm Administered Dose 30 ml .ROUTE .STK-MED ONE Stop: 07/06/20 06:57 Cefazolin Sodium (Cefazolin 1 Gm Vial) Confirm Administered Dose 2 gm .ROUTE .STK-MED ONE Stop: 07/06/20 07:57 Cefazolin Sodium (Cefazolin 1 Gm Vial) Confirm Administered Dose 2 gm .ROUTE .STK-MED ONE Stop: 07/06/20 11:24 Dextrose/Water (50% Dextrose In Water 50 Ml Syringe) 50 ml IV ASDIRECTED PRN PRN Reason: Hypoglycemia Fentanyl (Fentanyl 100 Mcg/2 Ml Sdv) Confirm Administered Dose 100 mcg .ROUTE .STK-MED ONE Stop: 07/06/20 07:04 Fentanyl (Fentanyl 250 Mcg/5 Ml Sdv) Confirm Administered Dose 250 mcg .ROUTE .STK-MED ONE Stop: 07/06/20 07:59 Fentanyl (Fentanyl 100 Mcg/2 Ml Sdv) 50 mcg IVPUSH Q5M PRN PRN Reason: Pain Last Admin: 07/06/20 14:41 Dose: 50 mcg Documented by: Glucagon (Glucagon,Human Recombinant 1 Mg Vial) 1 mg IM ASDIRECTED PRN PRN Reason: Hypoglycemia Glycopyrrolate (Glycopyrrolate 0.2 Mg/Ml Sdv) Confirm Administered Dose 0.2 mg .ROUTE .STK-MED ONE Stop: 07/06/20 07:01 Heparin Sodium (Porcine) (Heparin Sodium 5,000 Units/Ml Vial) 5,000 units SUBCUT Q8H [facility] Stop: 07/05/20 17:00 Last Admin: 07/05/20 11:20 Dose: 5,000 units Documented by: Hydralazine HCl (Hydralazine 20 Mg/Ml Sdv) Confirm Administered Dose 20 mg .ROUTE .STK-MED ONE Stop: 07/06/20 14:18 Last Admin: 07/06/20 15:26 Dose: Not Given Documented by: Hydrochlorothiazide (Hydrochlorothiazide 25 Mg Tab) 25 mg PO DAILY [facility] Sodium Chloride (Normal Saline) 1,000 mls @ 999 mls/hr IV .Bolus ONE Stop: 07/04/20 21:50 Last Admin: 07/04/20 21:03 Dose: 999 mls/hr Documented by: Sodium Chloride (Normal Saline) 1,000 mls @ 100 mls/hr IV CONTINUOUS ONE Stop: 07/06/20 05:21 Last Admin: 07/05/20 20:44 Dose: 100 mls/hr Documented by: Sodium Chloride (Normal Saline) Confirm Administered Dose 20 mls @ as directed .ROUTE .STK-MED ONE Stop: 07/06/20 06:59 Sodium Chloride (Normal Saline) Confirm Administered Dose 20 mls @ as directed .ROUTE .STK-MED ONE Stop: 07/06/20 07:57 Sodium Chloride (Normal Saline) Confirm Administered Dose 20 mls @ as directed .ROUTE .STK-MED ONE Stop: 07/06/20 11:24 Cefazolin Sodium/Dextrose 2 gm (/ Premix) 50 mls @ 100 mls/hr IV Q8H [facility] Stop: 07/07/20 04:29 Last Admin: 07/07/20 03:32 Dose: 100 mls/hr Documented by: Acetaminophen (Ofirmev 1000 Mg/100 Ml) Confirm Administered Dose 100 mls @ as directed .ROUTE .STK-MED ONE Stop: 07/06/20 13:41 Ibuprofen (Ibuprofen 600 Mg Tab) 600 mg PO ONETIME ONE Stop: 07/04/20 19:07 Last Admin: 07/04/20 19:22 Dose: 600 mg Documented by: Insulin Glargine (Insulin Glargine,Human Rec. Analog 100 Units/Ml 3 Ml Pen) 22 units SUBCUT ONETIME ONE Stop: 07/05/20 11:31 Last Admin: 07/05/20 11:18 Dose: 22 units Documented by: Insulin Glargine (Insulin Glargine,Human Rec. Analog 100 Units/Ml 3 Ml Pen) 11 units SUBCUT ONETIME ONE Stop: 07/06/20 05:01 Last Admin: 07/06/20 04:54 Dose: 11 units Documented by: Insulin Glargine (Insulin Glargine,Human Rec. Analog 100 Units/Ml 3 Ml Pen) 7 units SUBCUT BEDTIME [facility] Last Admin: 07/05/20 20:48 Dose: 7 units Documented by: Insulin Human Regular (Insulin Regular, Human 100 Units/Ml 10 Ml Vial) Confirm Administered Dose 1,000 unit .ROUTE .STK-MED ONE Stop: 07/06/20 07:36 Ketamine HCl (Ketamine 500 Mg/10 Ml Mdv) Confirm Administered Dose 500 mg .ROUTE .STK-MED ONE Stop: 07/06/20 08:01 Ketorolac Tromethamine (Ketorolac 30 Mg/Ml Sdv) Confirm Administered Dose 30 mg .ROUTE .STK-MED ONE Stop: 07/06/20 07:01 Lidocaine (Lidocaine 2% 5 Ml Sdv) Confirm Administered Dose 5 ml .ROUTE .STK-MED ONE Stop: 07/06/20 07:01 Losartan Potassium (Losartan 50 Mg Tab) 50 mg PO BID [facility] Midazolam HCl (Midazolam 1 Mg/Ml 2 Ml Sdv) Confirm Administered Dose 2 mg .ROUTE .STK-MED ONE Stop: 07/06/20 07:03 Midazolam HCl (Midazolam 1 Mg/Ml 2 Ml Sdv) Confirm Administered Dose 2 mg .ROUTE .STK-MED ONE Stop: 07/06/20 07:03 Ondansetron HCl (Ondansetron 4 Mg/2 Ml Sdv) Confirm Administered Dose 4 mg .ROUT E .STK-MED ONE Stop: 07/06/20 07:01 Oxycodone HCl (Oxycodone 5 Mg Tab) 5 mg PO Q4H PRN PRN Reason: Pain (moderate 4-6) Last Admin: 07/06/20 04:53 Dose: 5 mg Documented by: Phenylephrine HCl (Phenylephrine 1% 10 Mg/Ml Sdv) Confirm Administered Dose 10 mg .ROUTE .STK-MED ONE Stop: 07/06/20 06:40 Propofol (Propofol 200 Mg/20 Ml Sdv) Confirm Administered Dose 200 mg .ROUTE .STK-MED ONE Stop: 07/06/20 07:03 Rocuronium [place] (Rocuronium [place] 50 Mg/5 Ml Syringe) Confirm Administered Dose 50 mg .ROUTE .STK-MED ONE Stop: 07/06/20 07:01 Rocuronium [place] (Rocuronium [place] 50 Mg/5 Ml Syringe) Confirm Administered Dose 50 mg .ROUTE .STK-MED ONE Stop: 07/06/20 10:28 Sugammadex Sodium (Sugammadex Sodium 200 Mg/2 Ml Vial) Confirm Administered Dose 200 mg .ROUTE .STK-MED ONE Stop: 07/06/20 08:53 Tranexamic Acid (Tranexamic Acid 1,000 Mg/10 Ml Amp) Confirm Administered Dose 1,000 mg .ROUTE .STK-MED ONE Stop: 07/06/20 09:40 - Exam Wound/Incisions: Dressing Dry and Intact (left humerus & right hip/thigh), No Drainage Quality Assessment: Urine Catheter, DVT Prophylaxis (ASA 325mg & bilateral SCDs) General: Alert, Oriented, Cooperative, No Acute Distress Extremities: Other (Sensation intact to RLE and LUE, actively wiggles toes and fingers) Neurological: Normal Speech Psy/Mental Status: Alert Sepsis Event Note - Evaluation Sepsis Screening Result: No Definite Risk - Focused Exam Vital Signs: Vital Signs Temp Pulse Pulse Resp BP BP Pulse Ox 07/07/20 08:03 68 115/56 L 07/07/20 08:00 115/56 L 07/07/20 07:00 36.6 C 68 18 115/56 L 94 L 07/07/20 03:31 36.7 C 63 16 117/55 L 92 L 07/06/20 23:55 63 16 92 L 07/06/20 21:20 71 136/71 - Problem List Review Problem List Initiated/Reviewed/Updated: Yes - My Orders Last 24 Hours: Active Orders 24 hr Category Date Time Status Communication Order [RC] PRN Care 07/06/20 13:26 Active Cooling Warming Measures [RC] ASDIRECTED Care 07/06/20 13:28 Active Neurovascular Check [RC] Q2HR Care 07/06/20 13:26 Active Overnight Pulse Oximetry [RC] Click to Edit Care 07/06/20 13:03 Active RT Incentive Spirometry [RC] Q1HWA Care 07/06/20 13:26 Active Urinary Catheter Removal [RC] ASDIRECTED Care 07/07/20 13:26 Active Wound Care [RC] DAILY Care 07/06/20 13:26 Active PT Evaluation and Treatment [CONS] Routine Cons 07/06/20 13:26 Active [place] [employer] Diet [DIET] Diet 07/06/20 Dinner Active Fluoro>1Hr [CR] Routine Exams 07/06/20 09:15 Taken Fluoro>1Hr [CR] Routine Exams 07/06/20 11:25 Taken HEMOGLOBIN/HEMATOCRIT,HH [HEME] DAILY Lab 07/08/20 06:00 Ordered Acetaminophen [Ofirmev 1000 mg/100 ml] 1,000 mg Med 07/06/20 13:03 Active Premix Bag 1 bag IV Q6H Acetaminophen [TylenoL] Med 07/06/20 21:00 Active 650 mg PO Q6H Alum Hydrox/Mag Hydrox/Simeth [Mag-Al Plus] Med 07/06/20 13:26 Active 30 ml PO Q4H PRN Aspirin Med 07/06/20 19:00 Active 325 mg PO DAILY Docusate Sodium [Colace] Med 07/07/20 09:00 Active 100 mg PO Q12HR Famotidine [Pepcid] Med 07/07/20 09:00 Active 40 mg PO DAILY Insulin Glarg,Human.Rec.Analog [LantUS Solostar] Med 07/06/20 21:00 Active 14 units SUBCUT BEDTIME Losartan [Cozaar] Med 07/07/20 09:00 Active 50 mg PO BID Morphine Med 07/06/20 13:26 Active 1 - 2 mg IVPUSH Q3H PRN Ondansetron [Zofran] Med 07/06/20 13:26 Active 4 mg IVPUSH Q6H PRN bisacodyL [Dulcolax] Med 07/06/20 13:26 Active 10 mg RECTAL DAILY PRN ceFAZolin [Ancef 2 GM/50 ML] 2 gm Med 07/06/20 08:00 Active Premix Bag 1 bag IV ONCALL diphenhydrAMINE [Benadryl] Med 07/06/20 13:26 Active 25 - 50 mg PO Q6H PRN hydrALAZINE [Apresoline] Med 07/06/20 14:13 Active 5 mg IVPUSH Q15M PRN oxyCODONE Med 07/06/20 13:26 Active 5 - 10 mg PO Q4H PRN polyethylene glycoL 3350 [MiraLAX] Med 07/07/20 09:00 Active 17 gm PO DAILY Ice Therapy [OM.PC] Routine Oth 07/06/20 13:26 Ordered Code Status [Resuscitation Status] Routine Resus Stat 07/06/20 13:45 Ordered Medication Orders Acetaminophen (Acetaminophen 325 Mg Tab) 650 mg PO Q6H [facility] Last Admin: 07/07/20 08:01 Dose: 650 mg Documented by: Admin: 07/07/20 03:32 Dose: 650 mg Documented by: Admin: 07/06/20 21:19 Dose: 650 mg Documented by: VENITA Al Hydroxide/Mg Hydroxide (Aluminum Hydroxide/Magnesium Hydroxide/Simethicone Susp 30 Ml Cup) 30 ml PO Q4H PRN PRN Reason: Indigestion Aspirin (Aspirin 325 Mg Tab) 325 mg PO DAILY [facility] Last Admin: 07/07/20 08:00 Dose: 325 mg Documented by: Admin: 07/06/20 18:15 Dose: 325 mg Documented by: ALISSA Atorvastatin Calcium (Atorvastatin 40 Mg Tab) 40 mg PO DAILY [facility] Last Admin: 07/07/20 08:00 Dose: 40 mg Documented by: Admin: 07/06/20 11:00 Dose: Not Given Documented by: Admin: 07/05/20 08:36 Dose: 40 mg Documented by: OLVIN Bisacodyl (Bisacodyl 10 Mg Supp) 10 mg RECTAL DAILY PRN PRN Reason: Constipation Carvedilol (Carvedilol 25 Mg Tab) 25 mg PO BID [facility] Last Admin: 07/07/20 08:03 Dose: 25 mg Documented by: Admin: 07/06/20 21:20 Dose: 25 mg Documented by: Admin: 07/06/20 11:00 Dose: Not Given Documented by: Admin: 07/05/20 20:44 Dose: 25 mg Documented by: Admin: 07/05/20 08:34 Dose: 25 mg Documented by: Admin: 07/04/20 21:08 Dose: Not Given Documented by: NAOMI Dextrose/Water (50% Dextrose In Water 50 Ml Syringe) 50 ml IV ASDIRECTED PRN PRN Reason: Hypoglycemia Diphenhydramine HCl (Diphenhydramine 25 Mg Cap) 25 - 50 mg PO Q6H PRN PRN Reason: Itching Docusate Sodium (Docusate Sodium 100 Mg Cap) 100 mg PO Q12HR [facility] Last Admin: 07/07/20 08:00 Dose: 100 mg Documented by: DUTCH Famotidine (Famotidine 20 Mg Tab) 40 mg PO DAILY [facility] Last Admin: 07/07/20 08:01 Dose: 40 mg Documented by: DUTCH Glucagon (Glucagon,Human Recombinant 1 Mg Vial) 1 mg IM ASDIRECTED PRN PRN Reason: Hypoglycemia Hydralazine HCl (Hydralazine 20 Mg/Ml Sdv) 5 mg IVPUSH Q15M PRN PRN Reason: Hypertension Last Admin: 07/06/20 14:20 Dose: 5 mg Documented by: JAYJAY Cefazolin Sodium/Dextrose 2 gm (/ Premix) 50 mls @ 100 mls/hr IV ONCALL [facility] Last Admin: 07/06/20 19:54 Dose: 100 mls/hr Documented by: VENITA Acetaminophen 1,000 mg/ Premix 100 mls @ 400 mls/hr IV Q6H PRN PRN Reason: Pain Last Admin: 07/06/20 13:47 Dose: 400 mls/hr Documented by: JAYJAY Ibuprofen (Ibuprofen 400 Mg Tab) 400 mg PO Q4H PRN PRN Reason: Pain Insulin Aspart (Insulin Aspart 100 Units/Ml 3 Ml Pen) 0 unit SUBCUT TIDAC [facility]; Protocol Last Admin: 07/07/20 08:06 Dose: 12 unit Documented by: Admin: 07/06/20 18:13 Dose: 9 unit Documented by: Admin: 07/06/20 11:55 Dose: Not Given Documented by: Admin: 07/06/20 11:00 Dose: Not Given Documented by: Admin: 07/05/20 17:51 Dose: 15 unit Documented by: Admin: 07/05/20 12:02 Dose: 12 unit Documented by: Admin: 07/05/20 08:36 Dose: 8 unit Documented by: OLVIN Insulin Glargine (Insulin Glargine,Human Rec. Analog 100 Units/Ml 3 Ml Pen) 14 units SUBCUT BEDTIME [facility] Last Admin: 07/06/20 21:23 Dose: 14 units Documented by: VENITA Levothyroxine Sodium (Levothyroxine 75 Mcg Tab) 75 mcg PO ACBRK [facility] Last Admin: 07/07/20 08:00 Dose: 75 mcg Documented by: Admin: 07/06/20 11:00 Dose: Not Given Documented by: Admin: 07/05/20 06:52 Dose: 75 mcg Documented by: NAOMI Losartan Potassium (Losartan 50 Mg Tab) 50 mg PO BID [facility] Last Admin: 07/07/20 08:00 Dose: 50 mg Documented by: DUTCH Morphine Sulfate (Morphine 2 Mg/Ml Syringe) 1 - 2 mg IVPUSH Q3H PRN PRN Reason: Pain Omeprazole (Omeprazole 20 Mg Cap.Cr) 20 mg PO BEDTIME [facility] Last Admin: 07/06/20 21:20 Dose: 20 mg Documented by: Admin: 07/05/20 20:42 Dose: 20 mg Documented by: Admin: 07/04/20 21:07 Dose: 20 mg Documented by: NAOMI Ondansetron HCl (Ondansetron 4 Mg Tab.Dis) 4 mg PO Q6H PRN PRN Reason: nausea, able to take PO Ondansetron HCl (Ondansetron 4 Mg/2 Ml Sdv) 4 mg IVPUSH Q6H PRN PRN Reason: Nausea/Vomiting Oxycodone HCl (Oxycodone 5 Mg Tab) 5 - 10 mg PO Q4H PRN PRN Reason: Pain Last Admin: 07/06/20 22:29 Dose: 5 mg Documented by: VENITA Polyethylene Glycol (Polyethylene Glycol 3350 Powder 17 Gm Packet) 17 gm PO DAILY [facility] Last Admin: 07/07/20 07:59 Dose: 17 gm Documented by: DUTCH - Assessment Assessment (Free Text/Narrative):: 1) s/p ORIF Right femoral neck fracture 2) s/p ORIF Left humerus shaft fracture - Plan Plan (Free Text/Narrative):: PT today. She has not been OOB since surgery. ASA and bilateral SCDs and pivot transfer OOB into chair for DVT prophylaxis. 2 doses of Ancef completed. Pain management, which is controlled. Received dose of Tylenol this morning, and states last night she slept well with minimal pain. Case Management working on admission to SNF in [place], [place], which is where she lives (lives alone in her own house). Hospitalist for medical management.
[2020-07-07] MEDS ORDERED: Sodium Chloride 0.9% 1,000 ML IV SCH (09:00)
[2020-07-07] MEDS ORDERED: Sodium Chloride 0.9% 500 ML IV SCH (09:00)
[2020-07-07] MEDS ORDERED: Sodium Chloride 0.9% 1,000 ML IV ONE (09:06)
[2020-07-07] MEDS: oxyCODONE 5 MG Tab PO PRN ×2 (10:26→18:50)
--- NOTE | 2020-07-07 11:28 | PCM.PN ---
- General Info Date of Service: 07/07/20 Subjective Update: Bedside: mentions good pain control. Feels tired but otherwise in no acute distress - Review of Systems General: Reports: Fatigue HEENT: Reports: No Symptoms Pulmonary: Reports: No Symptoms Cardiovascular: Reports: No Symptoms Gastrointestinal: Reports: Constipation Musculoskeletal: Reports: Shoulder Pain, Leg Pain Neurological: Reports: No Symptoms Psychiatric: Reports: No Symptoms - Patient Data Vitals - Most Recent: Last Vital Signs Temp 97.9 F 07/07/20 07:00 Pulse 68 07/07/20 08:03 Resp 18 07/07/20 07:00 BP 115/56 L 07/07/20 08:03 Pulse Ox 94 L 07/07/20 07:00 Weight - Most Recent: 91.5 kg I&O - Last 24 Hours: Intake & Output 07/06/20 07/07/20 07/07/20 22:59 06:59 14:59 Intake Total 1000 Output Total 450 Balance 550 Lab Results Last 24 Hours: Laboratory Results - last 24 hr 07/06/20 07/06/20 07/06/20 Range/Units 07:28 12:30 14:14 WBC (4.0-11.0) K/uL RBC (4.30-5.90) M/uL Hgb (12.0-16.0) g/dL Hct (36.0-46.0) % MCV (80.0-98.0) fL MCH (27.0-32.0) pg MCHC (31.0-37.0) g/dL RDW Std Deviation (28.0-62.0) fl RDW Coeff of Grace (11.0-15.0) % Plt Count (150-400) K/uL MPV (7.40-12.00) fL Neut % (Auto) (48.0-80.0) % Lymph % (Auto) (16.0-40.0) % Henderson % (Auto) (0.0-15.0) % Eos % (Auto) (0.0-7.0) % Baso % (Auto) (0.0-1.5) % Neut # (Auto) (1.4-5.7) K/uL Lymph # (Auto) (0.6-2.4) K/uL Henderson # (Auto) (0.0-0.8) K/uL Eos # (Auto) (0.0-0.7) K/uL Baso # (Auto) (0.0-0.1) K/uL Nucleated RBC % /100WBC Nucleated RBCs # K/uL Sodium (136-145) mmol/L Potassium (3.5-5.1) mmol/L Chloride (98-107) mmol/L Carbon Dioxide (21.0-32.0) mmol/L BUN (7.0-18.0) mg/dL Creatinine (0.6-1.0) mg/dL Est Cr Clr Drug Dosing mL/min Estimated GFR (MDRD) ml/min Glucose (74-106) mg/dL POC Glucose 156 H 201 H (70-99) mg/dL Calcium (8.5-10.1) mg/dL Blood Type O NEGATIVE Antibody Screen NEGATIVE Crossmatch See Detail 07/06/20 07/06/20 07/07/20 Range/Units 17:08 21:17 05:28 WBC 7.74 (4.0-11.0) K/uL RBC 3.30 L (4.30-5.90) M/uL Hgb 10.4 L (12.0-16.0) g/dL Hct 30.8 L (36.0-46.0) % MCV 93.3 (80.0-98.0) fL MCH 31.5 (27.0-32.0) pg MCHC 33.8 (31.0-37.0) g/dL RDW Std Deviation 51.1 (28.0-62.0) fl RDW Coeff of Grace 15 (11.0-15.0) % Plt Count 110 L (150-400) K/uL MPV 11.80 (7.40-12.00) fL Neut % (Auto) 78.4 (48.0-80.0) % Lymph % (Auto) 7.0 L (16.0-40.0) % Henderson % (Auto) 14.6 (0.0-15.0) % Eos % (Auto) 0.0 (0.0-7.0) % Baso % (Auto) 0.0 (0.0-1.5) % Neut # (Auto) 6.1 H (1.4-5.7) K/uL Lymph # (Auto) 0.5 L (0.6-2.4) K/uL Henderson # (Auto) 1.1 H (0.0-0.8) K/uL Eos # (Auto) 0.0 (0.0-0.7) K/uL Baso # (Auto) 0.0 (0.0-0.1) K/uL Nucleated RBC % 0.0 /100WBC Nucleated RBCs # 0 K/uL Sodium (136-145) mmol/L Potassium (3.5-5.1) mmol/L Chloride (98-107) mmol/L Carbon Dioxide (21.0-32.0) mmol/L BUN (7.0-18.0) mg/dL Creatinine (0.6-1.0) mg/dL Est Cr Clr Drug Dosing mL/min Estimated GFR (MDRD) ml/min Glucose (74-106) mg/dL POC Glucose 271 H 336 H (70-99) mg/dL Calcium (8.5-10.1) mg/dL Blood Type Antibody Screen Crossmatch 07/07/20 07/07/20 Range/Units 05:28 06:25 WBC (4.0-11.0) K/uL RBC (4.30-5.90) M/uL Hgb (12.0-16.0) g/dL Hct (36.0-46.0) % MCV (80.0-98.0) fL MCH (27.0-32.0) pg MCHC (31.0-37.0) g/dL RDW Std Deviation (28.0-62.0) fl RDW Coeff of Grace (11.0-15.0) % Plt Count (150-400) K/uL MPV (7.40-12.00) fL Neut % (Auto) (48.0-80.0) % Lymph % (Auto) (16.0-40.0) % Henderson % (Auto) (0.0-15.0) % Eos % (Auto) (0.0-7.0) % Baso % (Auto) (0.0-1.5) % Neut # (Auto) (1.4-5.7) K/uL Lymph # (Auto) (0.6-2.4) K/uL Henderson # (Auto) (0.0-0.8) K/uL Eos # (Auto) (0.0-0.7) K/uL Baso # (Auto) (0.0-0.1) K/uL Nucleated RBC % /100WBC Nucleated RBCs # K/uL Sodium 131 L (136-145) mmol/L Potassium 4.3 (3.5-5.1) mmol/L Chloride 100 (98-107) mmol/L Carbon Dioxide 23.5 (21.0-32.0) mmol/L BUN 29 H (7.0-18.0) mg/dL Creatinine 1.2 H (0.6-1.0) mg/dL Est Cr Clr Drug Dosing 31.33 mL/min Estimated GFR (MDRD) 44.4 ml/min Glucose 345 H (74-106) mg/dL POC Glucose 317 H (70-99) mg/dL Calcium 7.3 L (8.5-10.1) mg/dL Blood Type Antibody Screen Crossmatch Med Orders - Current: Current Medications Acetaminophen (Acetaminophen 325 Mg Tab) 650 mg PO Q6H [facility] Last Admin: 07/07/20 08:01 Dose: 650 mg Documented by: Al Hydroxide/Mg Hydroxide (Aluminum Hydroxide/Magnesium Hydroxide/Simethicone Susp 30 Ml Cup) 30 ml PO Q4H PRN PRN Reason: Indigestion Aspirin (Aspirin 325 Mg Tab) 325 mg PO DAILY [facility] Last Admin: 07/07/20 08:00 Dose: 325 mg Documented by: Atorvastatin Calcium (Atorvastatin 40 Mg Tab) 40 mg PO DAILY [facility] Last Admin: 07/07/20 08:00 Dose: 40 mg Documented by: Bisacodyl (Bisacodyl 10 Mg Supp) 10 mg RECTAL DAILY PRN PRN Reason: Constipation Carvedilol (Carvedilol 25 Mg Tab) 25 mg PO BID [facility] Last Admin: 07/07/20 08:03 Dose: 25 mg Documented by: Dextrose/Water (50% Dextrose In Water 50 Ml Syringe) 50 ml IV ASDIRECTED PRN PRN Reason: Hypoglycemia Diphenhydramine HCl (Diphenhydramine 25 Mg Cap) 25 - 50 mg PO Q6H PRN PRN Reason: Itching Docusate Sodium (Docusate Sodium 100 Mg Cap) 100 mg PO Q12HR [facility] Last Admin: 07/07/20 08:00 Dose: 100 mg Documented by: Famotidine (Famotidine 20 Mg Tab) 40 mg PO DAILY [facility] Last Admin: 07/07/20 08:01 Dose: 40 mg Documented by: Glucagon (Glucagon,Human Recombinant 1 Mg Vial) 1 mg IM ASDIRECTED PRN PRN Reason: Hypoglycemia Hydralazine HCl (Hydralazine 20 Mg/Ml Sdv) 5 mg IVPUSH Q15M PRN PRN Reason: Hypertension Last Admin: 07/06/20 14:20 Dose: 5 mg Documented by: Cefazolin Sodium/Dextrose 2 gm (/ Premix) 50 mls @ 100 mls/hr IV ONCALL [facility] Last Admin: 07/06/20 19:54 Dose: 100 mls/hr Documented by: Acetaminophen 1,000 mg/ Premix 100 mls @ 400 mls/hr IV Q6H PRN PRN Reason: Pain Last Admin: 07/06/20 13:47 Dose: 400 mls/hr Documented by: Sodium Chloride (Normal Saline) 500 mls @ 999 mls/hr IV STAT [facility] Last Admin: 07/07/20 09:03 Dose: 999 mls/hr Documented by: Sodium Chloride (Normal Saline) 1,000 mls @ 75 mls/hr IV ONETIME ONE Stop: 07/07/20 22:25 Last Admin: 07/07/20 10:28 Dose: 75 mls/hr Documented by: Ibuprofen (Ibuprofen 400 Mg Tab) 400 mg PO Q4H PRN PRN Reason: Pain Insulin Aspart (Insulin Aspart 100 Units/Ml 3 Ml Pen) 0 unit SUBCUT TIDAC [facility]; Protocol Last Admin: 07/07/20 08:06 Dose: 12 unit Documented by: Insulin Glargine (Insulin Glargine,Human Rec. Analog 100 Units/Ml 3 Ml Pen) 14 units SUBCUT BEDTIME [facility] Last Admin: 07/06/20 21:23 Dose: 14 units Documented by: Levothyroxine Sodium (Levothyroxine 75 Mcg Tab) 75 mcg PO ACBRK [facility] Last Admin: 07/07/20 08:00 Dose: 75 mcg Documented by: Losartan Potassium (Losartan 50 Mg Tab) 50 mg PO BID [facility] Last Admin: 07/07/20 08:00 Dose: 50 mg Documented by: Morphine Sulfate (Morphine 2 Mg/Ml Syringe) 1 - 2 mg IVPUSH Q3H PRN PRN Reason: Pain Omeprazole (Omeprazole 20 Mg Cap.Cr) 20 mg PO BEDTIME [facility] Last Admin: 07/06/20 21:20 Dose: 20 mg Documented by: Ondansetron HCl (Ondansetron 4 Mg Tab.Dis) 4 mg PO Q6H PRN PRN Reason: nausea, able to take PO Ondansetron HCl (Ondansetron 4 Mg/2 Ml Sdv) 4 mg IVPUSH Q6H PRN PRN Reason: Nausea/Vomiting Oxycodone HCl (Oxycodone 5 Mg Tab) 5 - 10 mg PO Q4H PRN PRN Reason: Pain Last Admin: 07/07/20 10:26 Dose: 5 mg Documented by: Polyethylene Glycol (Polyethylene Glycol 3350 Powder 17 Gm Packet) 17 gm PO DA JENELLE [facility] Last Admin: 07/07/20 07:59 Dose: 17 gm Documented by: Discontinued Medications Bupivacaine HCl (Bupivacaine 0.5% 30 Ml Sdv) Confirm Administered Dose 30 ml .ROUTE .STK-MED ONE Stop: 07/06/20 06:57 Cefazolin Sodium (Cefazolin 1 Gm Vial) Confirm Administered Dose 2 gm .ROUTE .STK-MED ONE Stop: 07/06/20 07:57 Cefazolin Sodium (Cefazolin 1 Gm Vial) Confirm Administered Dose 2 gm .ROUTE .STK-MED ONE Stop: 07/06/20 11:24 Dextrose/Water (50% Dextrose In Water 50 Ml Syringe) 50 ml IV ASDIRECTED PRN PRN Reason: Hypoglycemia Fentanyl (Fentanyl 100 Mcg/2 Ml Sdv) Confirm Administered Dose 100 mcg .ROUTE .STK-MED ONE Stop: 07/06/20 07:04 Fentanyl (Fentanyl 250 Mcg/5 Ml Sdv) Confirm Administered Dose 250 mcg .ROUTE .STK-MED ONE Stop: 07/06/20 07:59 Fentanyl (Fentanyl 100 Mcg/2 Ml Sdv) 50 mcg IVPUSH Q5M PRN PRN Reason: Pain Last Admin: 07/06/20 14:41 Dose: 50 mcg Documented by: Glucagon (Glucagon,Human Recombinant 1 Mg Vial) 1 mg IM ASDIRECTED PRN PRN Reason: Hypoglycemia Glycopyrrolate (Glycopyrrolate 0.2 Mg/Ml Sdv) Confirm Administered Dose 0.2 mg .ROUTE .STK-MED ONE Stop: 07/06/20 07:01 Heparin Sodium (Porcine) (Heparin Sodium 5,000 Units/Ml Vial) 5,000 units SUB CUT Q8H [facility] Stop: 07/05/20 17:00 Last Admin: 07/05/20 11:20 Dose: 5,000 units Documented by: Hydralazine HCl (Hydralazine 20 Mg/Ml Sdv) Confirm Administered Dose 20 mg .ROUTE .STK-MED ONE Stop: 07/06/20 14:18 Last Admin: 07/06/20 15:26 Dose: Not Given Documented by: Hydrochlorothiazide (Hydrochlorothiazide 25 Mg Tab) 25 mg PO DAILY [facility] Sodium Chloride (Normal Saline) 1,000 mls @ 999 mls/hr IV .Bolus ONE Stop: 07/04/20 21:50 Last Admin: 07/04/20 21:03 Dose: 999 mls/hr Documented by: Sodium Chloride (Normal Saline) 1,000 mls @ 100 mls/hr IV CONTINUOUS ONE Stop: 07/06/20 05:21 Last Admin: 07/05/20 20:44 Dose: 100 mls/hr Documented by: Sodium Chloride (Normal Saline) Confirm Administered Dose 20 mls @ as directed .ROUTE .STK-MED ONE Stop: 07/06/20 06:59 Sodium Chloride (Normal Saline) Confirm Administered Dose 20 mls @ as directed .ROUTE .STK-MED ONE Stop: 07/06/20 07:57 Sodium Chloride (Normal Saline) Confirm Administered Dose 20 mls @ as directed .ROUTE .STK-MED ONE Stop: 07/06/20 11:24 Cefazolin Sodium/Dextrose 2 gm (/ Premix) 50 mls @ 100 mls/hr IV Q8H [facility] Stop: 07/07/20 04:29 Last Admin: 07/07/20 03:32 Dose: 100 mls/hr Documented by: Acetaminophen (Ofirmev 1000 Mg/100 Ml) Confirm Administered Dose 100 mls @ as directed .ROUTE .STK-MED ONE Stop: 07/06/20 13:41 Sodium Chloride (Normal Saline) 1,000 mls @ 75 mls/hr IV ASDIRECTED [facility] Stop: 07/07/20 16:00 Ibuprofen (Ibuprofen 600 Mg Tab) 600 mg PO ONETIME ONE Stop: 07/04/20 19:07 Last Admin: 07/04/20 19:22 Dose: 600 mg Documented by: Insulin Glargine (Insulin Glargine,Human Rec. Analog 100 Units/Ml 3 Ml Pen) 22 units SUBCUT ONETIME ONE Stop: 07/05/20 11:31 Last Admin: 07/05/20 11:18 Dose: 22 units Documented by: Insulin Glargine (Insulin Glargine,Human Rec. Analog 100 Units/Ml 3 Ml Pen) 11 units SUBCUT ONETIME ONE Stop: 07/06/20 05:01 Last Admin: 07/06/20 04:54 Dose: 11 units Documented by: Insulin Glargine (Insulin Glargine,Human Rec. Analog 100 Units/Ml 3 Ml Pen) 7 units SUBCUT BEDTIME [facility] Last Admin: 07/05/20 20:48 Dose: 7 units Documented by: Insulin Human Regular (Insulin Regular, Human 100 Units/Ml 10 Ml Vial) Confirm Administered Dose 1,000 unit .ROUTE .STK-MED ONE Stop: 07/06/20 07:36 Ketamine HCl (Ketamine 500 Mg/10 Ml Mdv) Confirm Administered Dose 500 mg .ROUTE .STK-MED ONE Stop: 07/06/20 08:01 Ketorolac Tromethamine (Ketorolac 30 Mg/Ml Sdv) Confirm Administered Dose 30 mg .ROUTE .STK-MED ONE Stop: 07/06/20 07:01 Lidocaine (Lidocaine 2% 5 Ml Sdv) Confirm Administered Dose 5 ml .ROUTE .STK-MED ONE Stop: 07/06/20 07:01 Losartan Potassium (Losartan 50 Mg Tab) 50 mg PO BID [facility] Midazolam HCl (Midazolam 1 Mg/Ml 2 Ml Sdv) Confirm Administered Dose 2 mg .ROUTE .STK-MED ONE Stop: 07/06/20 07:03 Midazolam HCl (Midazolam 1 Mg/Ml 2 Ml Sdv) Confirm Administered Dose 2 mg .ROUTE .STK-MED ONE Stop: 07/06/20 07:03 Ondansetron HCl (Ondansetron 4 Mg/2 Ml Sdv) Confirm Administered Dose 4 mg .ROUTE .STK-MED ONE Stop: 07/06/20 07:01 Oxycodone HCl (Oxycodone 5 Mg Tab) 5 mg PO Q4H PRN PRN Reason: Pain (moderate 4-6) Last Admin: 07/06/20 04:53 Dose: 5 mg Documented by: Phenylephrine HCl (Phenylephrine 1% 10 Mg/Ml Sdv) Confirm Administered Dose 10 mg .ROUTE .STK-MED ONE Stop: 07/06/20 06:40 Propofol (Propofol 200 Mg/20 Ml Sdv) Confirm Administered Dose 200 mg .ROUTE .STK-MED ONE Stop: 07/06/20 07:03 Rocuronium [place] (Rocuronium [place] 50 Mg/5 Ml Syringe) Confirm Administered Dose 50 mg .ROUTE .STReInnervate-MED ONE Stop: 07/06/20 07:01 Rocuronium [place] (Rocuronium [place] 50 Mg/5 Ml Syringe) Confirm Administered Dose 50 mg .ROUTE .STReInnervate-MED ONE Stop: 07/06/20 10:28 Sugammadex Sodium (Sugammadex Sodium 200 Mg/2 Ml Vial) Confirm Administered Dose 200 mg .ROUTE .STReInnervate-MED ONE Stop: 07/06/20 08:53 Tranexamic Acid (Tranexamic Acid 1,000 Mg/10 Ml Amp) Confirm Administered Dose 1,000 mg .ROUTE .STReInnervate-MED ONE Stop: 07/06/20 09:40 - Exam Quality Assessment: Supplemental Oxygen Urinary Catheter Total Time: 0Days 0Hours General: Alert, Oriented, No Acute Distress HEENT: EOMI Neck: Supple Lungs: Clear to Auscultation, Normal Respiratory Effort Cardiovascular: Regular Rate, Regular Rhythm GI/Abdominal Exam: Soft Extremities: Other (wound dressing in -situ including wound vac over right lower extrmeity ; has worked w. PT this AM ) Psy/Mental Status: Alert, Normal Affect, Normal Mood - Patient Data Lab Results Last 24 hrs: Laboratory Results - last 24 hr 07/06/20 07/06/20 07/06/20 Range/Units 07:28 12:30 14:14 WBC (4.0-11.0) K/uL RBC (4.30-5.90) M/uL Hgb (12.0-16.0) g/dL Hct (36.0-46.0) % MCV (80.0-98.0) fL MCH (27.0-32.0) pg MCHC (31.0-37.0) g/dL RDW Std Deviation (28.0-62.0) fl RDW Coeff of Grace (11.0-15.0) % Plt Count (150-400) K/uL MPV (7.40-12.00) fL Neut % (Auto) (48.0-80.0) % Lymph % (Auto) (16.0-40.0) % Henderson % (Auto) (0.0-15.0) % Eos % (Auto) (0.0-7.0) % Baso % (Auto) (0.0-1.5) % Neut # (Auto) (1.4-5.7) K/uL Lymph # (Auto) (0.6-2.4) K/uL Henderson # (Auto) (0.0-0.8) K/uL Eos # (Auto) (0.0-0.7) K/uL Baso # (Auto) (0.0-0.1) K/uL Nucleated RBC % /100WBC Nucleated RBCs # K/uL Sodium (136-145) mmol/L Potassium (3.5-5.1) mmol/L Chloride (98-107) mmol/L Carbon Dioxide (21.0-32.0) mmol/L BUN (7.0-18.0) mg/dL Creatinine (0.6-1.0) mg/dL Est Cr Clr Drug Dosing mL/min Estimated GFR (MDRD) ml/min Glucose (74-106) mg/dL POC Glucose 156 H 201 H (70-99) mg/dL Calcium (8.5-10.1) mg/dL Blood Type O NEGATIVE Antibody Screen NEGATIVE Crossmatch See Detail 07/06/20 07/06/20 07/07/20 Range/Units 17:08 21:17 05:28 WBC 7.74 (4.0-11.0) K/uL RBC 3.30 L (4.30-5.90) M/uL Hgb 10.4 L (12.0-16.0) g/dL Hct 30.8 L (36.0-46.0) % MCV 93.3 (80.0-98.0) fL MCH 31.5 (27.0-32.0) pg MCHC 33.8 (31.0-37.0) g/dL RDW Std Deviation 51.1 (28.0-62.0) fl RDW Coeff of Grace 15 (11.0-15.0) % Plt Count 110 L (150-400) K/uL MPV 11.80 (7.40-12.00) fL Neut % (Auto) 78.4 (48.0-80.0) % Lymph % (Auto) 7.0 L (16.0-40.0) % Henderson % (Auto) 14.6 (0.0-15.0) % Eos % (Auto) 0.0 (0.0-7.0) % Baso % (Auto) 0.0 (0.0-1.5) % Neut # (Auto) 6.1 H (1.4-5.7) K/uL Lymph # (Auto) 0.5 L (0.6-2.4) K/uL Henderson # (Auto) 1.1 H (0.0-0.8) K/uL Eos # (Auto) 0.0 (0.0-0.7) K/uL Baso # (Auto) 0.0 (0.0-0.1) K/uL Nucleated RBC % 0.0 /100WBC Nucleated RBCs # 0 K/uL Sodium (136-145) mmol/L Potassium (3.5-5.1) mmol/L Chloride (98-107) mmol/L Carbon Dioxide (21.0-32.0) mmol/L BUN (7.0-18.0) mg/dL Creatinine (0.6-1.0) mg/dL Est Cr Clr Drug Dosing mL/min Estimated GFR (MDRD) ml/min Glucose (74-106) mg/dL POC Glucose 271 H 336 H (70-99) mg/dL Calcium (8.5-10.1) mg/dL Blood Type Antibody Screen Crossmatch 07/07/20 07/07/20 Range/Units 05:28 06:25 WBC (4.0-11.0) K/uL RBC (4.30-5.90) M/uL Hgb (12.0-16.0) g/dL Hct (36.0-46.0) % MCV (80.0-98.0) fL MCH (27.0-32.0) pg MCHC (31.0-37.0) g/dL RDW Std Deviation (28.0-62.0) fl RDW Coeff of Grace (11.0-15.0) % Plt Count (150-400) K/uL MPV (7.40-12.00) fL Neut % (Auto) (48.0-80.0) % Lymph % (Auto) (16.0-40.0) % Henderson % (Auto) (0.0-15.0) % Eos % (Auto) (0.0-7.0) % Baso % (Auto) (0.0-1.5) % Neut # (Auto) (1.4-5.7) K/uL Lymph # (Auto) (0.6-2.4) K/uL Henderson # (Auto) (0.0-0.8) K/uL Eos # (Auto) (0.0-0.7) K/uL Baso # (Auto) (0.0-0.1) K/uL Nucleated RBC % /100WBC Nucleated RBCs # K/uL Sodium 131 L (136-145) mmol/L Potassium 4.3 (3.5-5.1) mmol/L Chloride 100 (98-107) mmol/L Carbon Dioxide 23.5 (21.0-32.0) mmol/L BUN 29 H (7.0-18.0) mg/dL Creatinine 1.2 H (0.6-1.0) mg/dL Est Cr Clr Drug Dosing 31.33 mL/min Estimated GFR (MDRD) 44.4 ml/min Glucose 345 H (74-106) mg/dL POC Glucose 317 H (70-99) mg/dL Calcium 7.3 L (8.5-10.1) mg/dL Blood Type Antibody Screen Crossmatch Result Diagrams: 07/07/20 05:28 07/07/20 05:28 Sepsis Event Note - Evaluation Sepsis Screening Result: No Definite Risk - Focused Exam Vital Signs: Vital Signs Temp Pulse Pulse Resp BP BP Pulse Ox 07/07/20 08:03 68 115/56 L 07/07/20 08:00 115/56 L 07/07/20 07:00 97.9 F 68 18 115/56 L 94 L 07/07/20 03:31 98.1 F 63 16 117/55 L 92 L 07/06/20 23:55 63 16 92 L - Problem List & Annotations (1) Closed right hip fracture SNOMED Code(s): 494361402 Code(s): S72.001A - FRACTURE OF UNSP PART OF NECK OF RIGHT FEMUR, INIT Status: Acute Current Visit: Yes (2) Left humeral fracture SNOMED Code(s): 63509187 Code(s): S42.302A - UNSP FRACTURE OF SHAFT OF HUMERUS, LEFT ARM, INIT Status: Acute Current Visit: Yes (3) Diabetes SNOMED Code(s): 34280875 Code(s): E11.9 - TYPE 2 DIABETES MELLITUS WITHOUT COMPLICATIONS Status: Acute Current Visit: Yes (4) Hypertension SNOMED Code(s): 20892495 Code(s): I10 - ESSENTIAL (PRIMARY) HYPERTENSION Status: Acute Current Visit: Yes (5) Obesity SNOMED Code(s): 229803600, 105324269 Code(s): E66.9 - OBESITY, UNSPECIFIED Status: Acute Current Visit: Yes - Problem List Review Problem List Initiated/Reviewed/Updated: Yes - My Orders Last 24 Hours: My Active Orders 07/06/20 13:45 Code Status [Resuscitation Status] Routine 07/06/20 21:00 Insulin Glarg,Human.Rec.Analog [LantUS Solostar] 14 units SUBCUT BEDTIME 07/07/20 09:00 Losartan [Cozaar] 50 mg PO BID Sodium Chloride 0.9% [Normal Saline] 500 ml IV STAT 07/07/20 09:06 Sodium Chloride 0.9% [Normal Saline] 1,000 ml IV ONETIME - Plan Plan:: Assessment: 1. Left humeral fracture/right hip fracture status post orthopedic repair 2. GIANNI 3. Hyperglycemia and a type II diabetic 4. Past medical history: Type 2 diabetes, hypertension, hyperlipidemia hypothyroidism Plan 1. Left humerus /right hip fracture: S/p right hip/left humerus repair : seen at bedside; tired but alert and oriented. Endorses some abdominal discomfort but no acute/overt pain : + consti pation Continue pain control and DVT prophylaxis per primary surgical team Diet advanced to Diabetic diet; resume home AM/PM LA insulin + SSI 2. Type II DM: elevated A1c; TID accuchecks + SSI started 3. HTN: restart losartan and HCTZ; 4. Continue home medications otherwise
[2020-07-07] MEDS: Insulin Glargine,Human Rec. Analog 100 Units/ML 3 ML Pen SUBCUT SCH ×2 (13:49→21:48)
[2020-07-07] MEDS: Omeprazole 20 MG Cap.CR PO SCH (21:51)
[2020-07-08] MEDS: Acetaminophen 325 MG Tab PO SCH ×6 (02:28→21:29)
[2020-07-08 06:15] LABS: CARBON DIOXIDE,CO2 23.2 mmol/L (21.0-32.0)
[2020-07-08] MEDS: Levothyroxine 75 MCG Tab PO SCH (06:44)
[2020-07-08] MEDS: oxyCODONE 5 MG Tab PO PRN ×3 (06:46→18:45)
[2020-07-08] MEDS: Insulin Aspart 100 Units/ML 3 ML Pen SUBCUT SCH ×3 (08:11→16:56)
--- NOTE | 2020-07-08 08:32 | PCM.SURGPN ---
- General Info Date of Service: 07/08/20 (814) Date of Surgery/Procedure: 07/06/20 POD#: 2 Post-Op Diagnosis: s/p ORIF Right femoral neck fracture & s/p ORIF Left humerus shaft fracture Admission Diagnosis/Problem: Hip fracture requiring operative repair Functional Status: Reports: Pain Controlled (States her pain was tolerable yesterday with medications.), Tolerating Diet (getting set up for breakfast this morning. appetite good), Urinating. Denies: Ambulating - Review of Systems General: Denies: Fever Musculoskeletal: Reports: Other (left humerus and right hip pain) Neurological: Denies: No Symptoms Psychiatric: Denies: No Symptoms Systems Review Comment:: Pt states she felt bad for the therapist yesterday, as it was very difficult for her transfer. Offers that she was given exercises to do by the therapist, "but i have to admit, I wasn't very good at doing some of them." - Patient Data Vitals - Most Recent: Last Vital Signs Temp 36.4 C 07/08/20 08:00 Pulse 68 07/08/20 08:00 Resp 17 07/08/20 08:00 BP 153/71 H 07/08/20 08:00 Pulse Ox 95 07/08/20 08:00 Weight - Most Recent: 91.5 kg I&O - Last 24 Hours: Intake & Output 07/07/20 07/08/20 07/08/20 22:59 06:59 14:59 Intake Total 1600 1000 Output Total 41 50 Balance 120F 52< Lab Results Last 24 Hrs: Laboratory Results - last 24 hr 07/06/20 07/07/20 07/07/20 Range/Units 07:28 11:56 16:44 WBC (4.0-11.0) K/uL RBC (4.30-5.90) M/uL Hgb (12.0-16.0) g/dL Hct (36.0-46.0) % MCV (80.0-98.0) fL MCH (27.0-32.0) pg MCHC (31.0-37.0) g/dL RDW Std Deviation (28.0-62.0) fl RDW Coeff of Grace (11.0-15.0) % Plt Count (150-400) K/uL MPV (7.40-12.00) fL Neut % (Auto) (48.0-80.0) % Lymph % (Auto) (16.0-40.0) % [place] % (Auto) (0.0-15.0) % Eos % (Auto) (0.0-7.0) % Baso % (Auto) (0.0-1.5) % Neut # (Auto) (1.4-5.7) K/uL Lymph # (Auto) (0.6-2.4) K/uL [place] # (Auto) (0.0-0.8) K/uL Eos # (Auto) (0.0-0.7) K/uL Baso # (Auto) (0.0-0.1) K/uL Nucleated RBC % /100WBC Nucleated RBCs # K/uL Sodium (136-145) mmol/L Potassium (3.5-5.1) mmol/L Chloride (98-107) mmol/L Carbon Dioxide (21.0-32.0) mmol/L BUN (7.0-18.0) mg/dL Creatinine (0.6-1.0) mg/dL Est Cr Clr Drug Dosing mL/min Estimated GFR (MDRD) ml/min Glucose (74-106) mg/dL POC Glucose 362 H 312 H (70-99) mg/dL Calcium (8.5-10.1) mg/dL Blood Type O NEGATIVE Antibody Screen NEGATIVE Crossmatch See Detail 07/07/20 07/08/20 07/08/20 Range/Units 21:47 05:41 05:41 WBC 6.54 (4.0-11.0) K/uL RBC 3.03 L (4.30-5.90) M/uL Hgb 9.4 L (12.0-16.0) g/dL Hct 28.5 L (36.0-46.0) % MCV 94.1 (80.0-98.0) fL MCH 31.0 (27.0-32.0) pg MCHC 33.0 (31.0-37.0) g/dL RDW Std Deviation 52.4 (28.0-62.0) fl RDW Coeff of Grace 15 (11.0-15.0) % Plt Count 110 L (150-400) K/uL MPV 11.10 (7.40-12.00) fL Neut % (Auto) 71.4 (48.0-80.0) % Lymph % (Auto) 12.7 L (16.0-40.0) % [place] % (Auto) 13.9 (0.0-15.0) % Eos % (Auto) 1.8 (0.0-7.0) % Baso % (Auto) 0.2 (0.0-1.5) % Neut # (Auto) 4.7 (1.4-5.7) K/uL Lymph # (Auto) 0.8 (0.6-2.4) K/uL [place] # (Auto) 0.9 H (0.0-0.8) K/uL Eos # (Auto) 0.1 (0.0-0.7) K/uL Baso # (Auto) 0.0 (0.0-0.1) K/uL Nucleated RBC % 0.0 /100WBC Nucleated RBCs # 0 K/uL Sodium 129 L (136-145) mmol/L Potassium 4.0 (3.5-5.1) mmol/L Chloride 99 (98-107) mmol/L Carbon Dioxide 23.2 (21.0-32.0) mmol/L BUN 38 H (7.0-18.0) mg/dL Creatinine 1.3 H (0.6-1.0) mg/dL Est Cr Clr Drug Dosing 28.92 mL/min Estimated GFR (MDRD) 40.5 ml/min Glucose 271 H (74-106) mg/dL POC Glucose 272 H (70-99) mg/dL Calcium 6.8 L (8.5-10.1) mg/dL Blood Type Antibody Screen Crossmatch 07/08/20 Range/Units 06:43 WBC (4.0-11.0) K/uL RBC (4.30-5.90) M/uL Hgb (12.0-16.0) g/dL Hct (36.0-46.0) % MCV (80.0-98.0) fL MCH (27.0-32.0) pg MCHC (31.0-37.0) g/dL RDW Std Deviation (28.0-62.0) fl RDW Coeff of Grace (11.0-15.0) % Plt Count (150-400) K/uL MPV (7.40-12.00) fL Neut % (Auto) (48.0-80.0) % Lymph % (Auto) (16.0-40.0) % [place] % (Auto) (0.0-15.0) % Eos % (Auto) (0.0-7.0) % Baso % (Auto) (0.0-1.5) % Neut # (Auto) (1.4-5.7) K/uL Lymph # (Auto) (0.6-2.4) K/uL [place] # (Auto) (0.0-0.8) K/uL Eos # (Auto) (0.0-0.7) K/uL Baso # (Auto) (0.0-0.1) K/uL Nucleated RBC % /100WBC Nucleated RBCs # K/uL Sodium (136-145) mmol/L Potassium (3.5-5.1) mmol/L Chloride (98-107) mmol/L Carbon Dioxide (21.0-32.0) mmol/L BUN (7.0-18.0) mg/dL Creatinine (0.6-1.0) mg/dL Est Cr Clr Drug Dosing mL/min Estimated GFR (MDRD) ml/min Glucose (74-106) mg/dL POC Glucose 249 H (70-99) mg/dL Calcium (8.5-10.1) mg/dL Blood Type Antibody Screen Crossmatch Med Orders - Current: Current Medications Acetaminophen (Acetaminophen 325 Mg Tab) 650 mg PO Q6H [facility] Last Admin: 07/08/20 02:28 Dose: 650 mg Documented by: Al Hydroxide/Mg Hydroxide (Aluminum Hydroxide/Magnesium Hydroxide/Simethicone Susp 30 Ml Cup) 30 ml PO Q4H PRN PRN Reason: Indigestion Aspirin (Aspirin 325 Mg Tab) 325 mg PO DAILY [facility] Last Admin: 07/07/20 08:00 Dose: 325 mg Documented by: Atorvastatin Calcium (Atorvastatin 40 Mg Tab) 40 mg PO DAILY [facility] Last Admin: 07/07/20 08:00 Dose: 40 mg Documented by: Bisacodyl (Bisacodyl 10 Mg Supp) 10 mg RECTAL DAILY PRN PRN Reason: Constipation Carvedilol (Carvedilol 25 Mg Tab) 25 mg PO BID [facility] Last Admin: 07/07/20 21:50 Dose: 25 mg Documented by: Dextrose/Water (50% Dextrose In Water 50 Ml Syringe) 50 ml IV ASDIRECTED PRN PRN Reason: Hypoglycemia Diphenhydramine HCl (Diphenhydramine 25 Mg Cap) 25 - 50 mg PO Q6H PRN PRN Reason: Itching Docusate Sodium (Docusate Sodium 100 Mg Cap) 100 mg PO Q12HR [facility] Last Admin: 07/07/20 21:50 Dose: 100 mg Documented by: Famotidine (Famotidine 20 Mg Tab) 40 mg PO DAILY [facility] Last Admin: 07/07/20 08:01 Dose: 40 mg Documented by: Glucagon (Glucagon,Human Recombinant 1 Mg Vial) 1 mg IM ASDIRECTED PRN PRN Reason: Hypoglycemia Hydralazine HCl (Hydralazine 20 Mg/Ml Sdv) 5 mg IVPUSH Q15M PRN PRN Reason: Hypertension Last Admin: 07/06/20 14:20 Dose: 5 mg Documented by: Cefazolin Sodium/Dextrose 2 gm (/ Premix) 50 mls @ 100 mls/hr IV ONCALL [facility] Last Admin: 07/06/20 19:54 Dose: 100 mls/hr Documented by: Acetaminophen 1,000 mg/ Premix 100 mls @ 400 mls/hr IV Q6H PRN PRN Reason: Pain Last Admin: 07/06/20 13:47 Dose: 400 mls/hr Documented by: Sodium Chloride (Normal Saline) 500 mls @ 999 mls/hr IV STAT [facility] Last Admin: 07/07/20 09:03 Dose: 999 mls/hr Documented by: Ibuprofen (Ibuprofen 400 Mg Tab) 400 mg PO Q4H PRN PRN Reason: Pain Insulin Aspart (Insulin Aspart 100 Units/Ml 3 Ml Pen) 0 unit SUBCUT TIDAC [facility]; Protocol Last Admin: 07/08/20 08:11 Dose: 6 unit Documented by: Insulin Glargine (Insulin Glargine,Human Rec. Analog 100 Units/Ml 3 Ml Pen) 14 units SUBCUT BEDTIME [facility] Last Admin: 07/07/20 21:48 Dose: 14 units Documented by: Insulin Glargine (Insulin Glargine,Human Rec. Analog 100 Units/Ml 3 Ml Pen) 22 units SUBCUT DAILY [facility] Last Admin: 07/07/20 13:49 Dose: 22 units Documented by: Levothyroxine Sodium (Levothyroxine 75 Mcg Tab) 75 mcg PO ACBRK [facility] Last Admin: 07/08/20 06:44 Dose: 75 mcg Documented by: Losartan Potassium (Losartan 50 Mg Tab) 50 mg PO BID [facility] Last Admin: 07/07/20 21:51 Dose: 50 mg Documented by: Morphine Sulfate (Morphine 2 Mg/Ml Syringe) 1 - 2 mg IVPUSH Q3H PRN PRN Reason: Pain Omeprazole (Omeprazole 20 Mg Cap.Cr) 20 mg PO BEDTIME [facility] Last Admin: 07/07/20 21:51 Dose: 20 mg Documented by: Ondansetron HCl (Ondansetron 4 Mg Tab.Dis) 4 mg PO Q6H PRN PRN Reason: nausea, able to take PO Ondansetron HCl (Ondansetron 4 Mg/2 Ml Sdv) 4 mg IVPUSH Q6H PRN PRN Reason: Nausea/Vomiting Oxycodone HCl (Oxycodone 5 Mg Tab) 5 - 10 mg PO Q4H PRN PRN Reason: Pain Last Admin: 07/08/20 06:46 Dose: 5 mg Documented by: Polyethylene Glycol (Polyethylene Glycol 3350 Powder 17 Gm Packet) 17 gm PO DAILY [facility] Last Admin: 07/07/20 07:59 Dose: 17 gm Documented by: Discontinued Medications Bupivacaine HCl (Bupivacaine 0.5% 30 Ml Sdv) Confirm Administered Dose 30 ml .ROUTE .STK-MED ONE Stop: 07/06/20 06:57 Cefazolin Sodium (Cefazolin 1 Gm Vial) Confirm Administered Dose 2 gm .ROUTE .STK-MED ONE Stop: 07/06/20 07:57 Cefazolin Sodium (Cefazolin 1 Gm Vial) Confirm Administered Dose 2 gm .ROUTE .STK-MED ONE Stop: 07/06/20 11:24 Dextrose/Water (50% Dextrose In Water 50 Ml Syringe) 50 ml IV ASDIRECTED PRN PRN Reason: Hypoglycemia Fentanyl (Fentanyl 100 Mcg/2 Ml Sdv) Confirm Administered Dose 100 mcg .ROUTE .STK-MED ONE Stop: 07/06/20 07:04 Fentanyl (Fentanyl 250 Mcg/5 Ml Sdv) Confirm Administered Dose 250 mcg .ROUTE .STK-MED ONE Stop: 07/06/20 07:59 Fentanyl (Fentanyl 100 Mcg/2 Ml Sdv) 50 mcg IVPUSH Q5M PRN PRN Reason: Pain Last Admin: 07/06/20 14:41 Dose: 50 mcg Documented by: Glucagon (Glucagon,Human Recombinant 1 Mg Vial) 1 mg IM ASDIRECTED PRN PRN Reason: Hypoglycemia Glycopyrrolate (Glycopyrrolate 0.2 Mg/Ml Sdv) Confirm Administered Dose 0.2 mg .ROUTE .STK-MED ONE Stop: 07/06/20 07:01 Heparin Sodium (Porcine) (Heparin Sodium 5,000 Units/Ml Vial) 5,000 units SUBCUT Q8H [facility] Stop: 07/05/20 17:00 Last Admin: 07/05/20 11:20 Dose: 5,000 units Documented by: Hydralazine HCl (Hydralazine 20 Mg/Ml Sdv) Confirm Administered Dose 20 mg .ROUT E .STK-MED ONE Stop: 07/06/20 14:18 Last Admin: 07/06/20 15:26 Dose: Not Given Documented by: Hydrochlorothiazide (Hydrochlorothiazide 25 Mg Tab) 25 mg PO DAILY [facility] Sodium Chloride (Normal Saline) 1,000 mls @ 999 mls/hr IV .Bolus ONE Stop: 07/04/20 21:50 Last Admin: 07/04/20 21:03 Dose: 999 mls/hr Documented by: Sodium Chloride (Normal Saline) 1,000 mls @ 100 mls/hr IV CONTINUOUS ONE Stop: 07/06/20 05:21 Last Admin: 07/05/20 20:44 Dose: 100 mls/hr Documented by: Sodium Chloride (Normal Saline) Confirm Administered Dose 20 mls @ as directed .ROUTE .STK-MED ONE Stop: 07/06/20 06:59 Sodium Chloride (Normal Saline) Confirm Administered Dose 20 mls @ as directed .ROUTE .STK-MED ONE Stop: 07/06/20 07:57 Sodium Chloride (Normal Saline) Confirm Administered Dose 20 mls @ as directed .ROUTE .STK-MED ONE Stop: 07/06/20 11:24 Cefazolin Sodium/Dextrose 2 gm (/ Premix) 50 mls @ 100 mls/hr IV Q8H [facility] Stop: 07/07/20 04:29 Last Admin: 07/07/20 03:32 Dose: 100 mls/hr Documented by: Acetaminophen (Ofirmev 1000 Mg/100 Ml) Confirm Administered Dose 100 mls @ as directed .ROUTE .STK-MED ONE Stop: 07/06/20 13:41 Sodium Chloride (Normal Saline) 1,000 mls @ 75 mls/hr IV ASDIRECTED [facility] Stop: 07/07/20 16:00 Sodium Chloride (Normal Saline) 1,000 mls @ 75 mls/hr IV ONETIME ONE Stop: 07/07/20 22:25 Last Admin: 07/07/20 10:28 Dose: 75 mls/hr Documented by: Ibuprofen (Ibuprofen 600 Mg Tab) 600 mg PO ONETIME ONE Stop: 07/04/20 19:07 Last Admin: 07/04/20 19:22 Dose: 600 mg Documented by: Insulin Glargine (Insulin Glargine,Human Rec. Analog 100 Units/Ml 3 Ml Pen) 22 units SUBCUT ONETIME ONE Stop: 07/05/20 11:31 Last Admin: 07/05/20 11:18 Dose: 22 units Documented by: Insulin Glargine (Insulin Glargine,Human Rec. Analog 100 Units/Ml 3 Ml Pen) 11 units SUBCUT ONETIME ONE Stop: 07/06/20 05:01 Last Admin: 07/06/20 04:54 Dose: 11 units Documented by: Insulin Glargine (Insulin Glargine,Human Rec. Analog 100 Units/Ml 3 Ml Pen) 7 units SUBCUT BEDTIME [facility] Last Admin: 07/05/20 20:48 Dose: 7 units Documented by: Insulin Human Regular (Insulin Regular, Human 100 Units/Ml 10 Ml Vial) Confirm Administered Dose 1,000 unit .ROUTE .STK-MED ONE Stop: 07/06/20 07:36 Ketamine HCl (Ketamine 500 Mg/10 Ml Mdv) Confirm Administered Dose 500 mg .ROUTE .STK-MED ONE Stop: 07/06/20 08:01 Ketorolac Tromethamine (Ketorolac 30 Mg/Ml Sdv) Confirm Administered Dose 30 mg .ROUTE .STK-MED ONE Stop: 07/06/20 07:01 Lidocaine (Lidocaine 2% 5 Ml Sdv) Confirm Administered Dose 5 ml .ROUTE .STK-MED ONE Stop: 07/06/20 07:01 Losartan Potassium (Losartan 50 Mg Tab) 50 mg PO BID [facility] Midazolam HCl (Midazolam 1 Mg/Ml 2 Ml Sdv) Confirm Administered Dose 2 mg .ROUTE .STK-MED ONE Stop: 07/06/20 07:03 Midazolam HCl (Midazolam 1 Mg/Ml 2 Ml Sdv) Confirm Administered Dose 2 mg .ROUTE .STK-MED ONE Stop: 07/06/20 07:03 Ondansetron HCl (Ondansetron 4 Mg/2 Ml Sdv) Confirm Administered Dose 4 mg .ROUTE .STK-MED ONE Stop: 07/06/20 07:01 Oxycodone HCl (Oxycodone 5 Mg Tab) 5 mg PO Q4H PRN PRN Reason: Pain (moderate 4-6) Last Admin: 07/06/20 04:53 Dose: 5 mg Documented by: Phenylephrine HCl (Phenylephrine 1% 10 Mg/Ml Sdv) Confirm Administered Dose 10 mg .ROUTE .STK-MED ONE Stop: 07/06/20 06:40 Propofol (Propofol 200 Mg/20 Ml Sdv) Confirm Administered Dose 200 mg .ROUTE .ST-MED ONE Stop: 07/06/20 07:03 Rocuronium [place] (Rocuronium [place] 50 Mg/5 Ml Syringe) Confirm Administered Dose 50 mg .ROUTE .STK-MED ONE Stop: 07/06/20 07:01 Rocuronium [place] (Rocuronium [place] 50 Mg/5 Ml Syringe) Confirm Administered Dose 50 mg .ROUTE .STJirafe-MED ONE Stop: 07/06/20 10:28 Sugammadex Sodium (Sugammadex Sodium 200 Mg/2 Ml Vial) Confirm Administered Dose 200 mg .ROUTE .ST-MED ONE Stop: 07/06/20 08:53 Tranexamic Acid (Tranexamic Acid 1,000 Mg/10 Ml Amp) Confirm Administered Dose 1,000 mg .ROUTE .STK-MED ONE Stop: 07/06/20 09:40 - Exam Wound/Incisions: Dressing Dry and Intact (Left humerus and right hip) Quality Assessment: Urine Catheter, DVT Prophylaxis (ASA 325mg daily and bilateral SCDs currently on) General: Alert, Oriented, Cooperative, No Acute Distress Lungs: Normal Respiratory Effort Neurological: Normal Speech Psy/Mental Status: Alert, Normal Affect Physical Findings Comment:: Sensation intact to Left hand. Actively wiggles fingers and wrist. Arm sling on. Sensation intact to Right foot. Actively wiggles toes and ankle. Sepsis Event Note - Evaluation Sepsis Screening Result: No Definite Risk - Focused Exam Vital Signs: Vital Signs Temp Pulse Pulse Resp BP BP Pulse Ox 07/08/20 08:00 36.4 C 68 17 153/71 H 95 07/08/20 04:20 37.0 C 62 17 116/62 94 L 07/08/20 00:51 36.6 C 68 16 125/62 93 L 07/07/20 22:00 07/07/20 21:51 133/60 07/07/20 21:50 70 133/60 07/07/20 21:39 37.2 C 70 17 133/60 94 L Pulse Ox 07/08/20 08:00 07/08/20 04:20 07/08/20 00:51 07/07/20 22:00 94 L 07/07/20 21:51 07/07/20 21:50 07/07/20 21:39 - Problem List Review Problem List Initiated/Reviewed/Updated: Yes - My Orders Last 24 Hours: Active Orders 24 hr Category Date Time Status Urinary Catheter Removal [RC] ASDIRECTED Care 07/07/20 13:26 Active BMP [BASIC METABOLIC PANEL,BMP] [CHEM] AM Lab 07/09/20 05:11 Ordered BMP [BASIC METABOLIC PANEL,BMP] [CHEM] AM Lab 07/10/20 05:11 Ordered CBC WITH AUTO DIFF [HEME] AM Lab 07/09/20 05:11 Ordered CBC WITH AUTO DIFF [HEME] AM Lab 07/10/20 05:11 Ordered Docusate Sodium [Colace] Med 07/07/20 09:00 Active 100 mg PO Q12HR Famotidine [Pepcid] Med 07/07/20 09:00 Active 40 mg PO DAILY Insulin Glarg,Human.Rec.Analog [LantUS Solostar] Med 07/07/20 12:15 Active 22 units SUBCUT DAILY Losartan [Cozaar] Med 07/07/20 09:00 Active 50 mg PO BID Sodium Chloride 0.9% [Normal Saline] 500 ml Med 07/07/20 09:00 Active IV STAT polyethylene glycoL 3350 [MiraLAX] Med 07/07/20 09:00 Active 17 gm PO DAILY Renew/Continue Urinary Catheter [OM.PC] Routine Oth 07/07/20 16:51 Ordered Medication Orders Acetaminophen (Acetaminophen 325 Mg Tab) 650 mg PO Q6H [facility] Admin: 07/08/20 02:28 Dose: 650 mg Documented by: Admin: 07/07/20 21:53 Dose: 650 mg Documented by: Admin: 07/07/20 15:07 Dose: 650 mg Documented by: Admin: 07/07/20 08:01 Dose: 650 mg Documented by: Admin: 07/07/20 03:32 Dose: 650 mg Documented by: Admin: 07/06/20 21:19 Dose: 650 mg Documented by: VENITA Al Hydroxide/Mg Hydroxide (Aluminum Hydroxide/Magnesium Hydroxide/Simethicone Susp 30 Ml Cup) 30 ml PO Q4H PRN PRN Reason: Indigestion Aspirin (Aspirin 325 Mg Tab) 325 mg PO DAILY [facility] Admin: 07/07/20 08:00 Dose: 325 mg Documented by: Admin: 07/06/20 18:15 Dose: 325 mg Documented by: ALISSA Atorvastatin Calcium (Atorvastatin 40 Mg Tab) 40 mg PO DAILY [facility] Admin: 07/07/20 08:00 Dose: 40 mg Documented by: Admin: 07/06/20 11:00 Dose: Not Given Documented by: Admin: 07/05/20 08:36 Dose: 40 mg Documented by: OLVIN Bisacodyl (Bisacodyl 10 Mg Supp) 10 mg RECTAL DAILY PRN PRN Reason: Constipation Carvedilol (Carvedilol 25 Mg Tab) 25 mg PO BID [facility] Admin: 07/07/20 21:50 Dose: 25 mg Documented by: Admin: 07/07/20 08:03 Dose: 25 mg Documented by: Admin: 07/06/20 21:20 Dose: 25 mg Documented by: Admin: 07/06/20 11:00 Dose: Not Given Documented by: Admin: 07/05/20 20:44 Dose: 25 mg Documented by: Admin: 07/05/20 08:34 Dose: 25 mg Documented by: Admin: 07/04/20 21:08 Dose: Not Given Documented by: NAOMI Dextrose/Water (50% Dextrose In Water 50 Ml Syringe) 50 ml IV ASDIRECTED PRN PRN Reason: Hypoglycemia Diphenhydramine HCl (Diphenhydramine 25 Mg Cap) 25 - 50 mg PO Q6H PRN PRN Reason: Itching Docusate Sodium (Docusate Sodium 100 Mg Cap) 100 mg PO Q12HR [facility] Last Admin: 07/07/20 21:50 Dose: 100 mg Documented by: Admin: 07/07/20 08:00 Dose: 100 mg Documented by: DUTCH Famotidine (Famotidine 20 Mg Tab) 40 mg PO DAILY [facility] Last Admin: 07/07/20 08:01 Dose: 40 mg Documented by: DUTCH Glucagon (Glucagon,Human Recombinant 1 Mg Vial) 1 mg IM ASDIRECTED PRN PRN Reason: Hypoglycemia Hydralazine HCl (Hydralazine 20 Mg/Ml Sdv) 5 mg IVPUSH Q15M PRN PRN Reason: Hypertension Last Admin: 07/06/20 14:20 Dose: 5 mg Documented by: JAYJAY Cefazolin Sodium/Dextrose 2 gm (/ Premix) 50 mls @ 100 mls/hr IV ONCALL [facility] Last Admin: 07/06/20 19:54 Dose: 100 mls/hr Documented by: VENITA Acetaminophen 1,000 mg/ Premix 100 mls @ 400 mls/hr IV Q6H PRN PRN Reason: Pain Last Admin: 07/06/20 13:47 Dose: 400 mls/hr Documented by: JAYJAY Sodium Chloride (Normal Saline) 500 mls @ 999 mls/hr IV STAT [facility] Last Admin: 07/07/20 09:03 Dose: 999 mls/hr Documented by: DUTCH Ibuprofen (Ibuprofen 400 Mg Tab) 400 mg PO Q4H PRN PRN Reason: Pain Insulin Aspart (Insulin Aspart 100 Units/Ml 3 Ml Pen) 0 unit SUBCUT TIDAC [facility]; Protocol Last Admin: 07/08/20 08:11 Dose: 6 unit Documented by: Admin: 07/07/20 17:56 Dose: 12 unit Documented by: Admin: 07/07/20 13:22 Dose: 15 unit Documented by: Admin: 07/07/20 08:06 Dose: 12 unit Documented by: Admin: 07/06/20 18:13 Dose: 9 unit Documented by: Admin: 07/06/20 11:55 Dose: Not Given Documented by: Admin: 07/06/20 11:00 Dose: Not Given Documented by: Admin: 07/05/20 17:51 Dose: 15 unit Documented by: Admin: 07/05/20 12:02 Dose: 12 unit Documented by: Admin: 07/05/20 08:36 Dose: 8 unit Documented by: OLVIN Insulin Glargine (Insulin Glargine,Human Rec. Analog 100 Units/Ml 3 Ml Pen) 14 units SUBCUT BEDTIME [facility] Last Admin: 07/07/20 21:48 Dose: 14 units Documented by: Admin: 07/06/20 21:23 Dose: 14 units Documented by: VENITA Insulin Glargine (Insulin Glargine,Human Rec. Analog 100 Units/Ml 3 Ml Pen) 22 units SUBCUT DAILY [facility] Last Admin: 07/07/20 13:49 Dose: 22 units Documented by: DUTCH Levothyroxine Sodium (Levothyroxine 75 Mcg Tab) 75 mcg PO ACBRK [facility] Last Admin: 07/08/20 06:44 Dose: 75 mcg Documented by: Admin: 07/07/20 08:00 Dose: 75 mcg Documented by: Admin: 07/06/20 11:00 Dose: Not Given Documented by: Admin: 07/05/20 06:52 Dose: 75 mcg Documented by: NAOMI Losartan Potassium (Losartan 50 Mg Tab) 50 mg PO BID [facility] Last Admin: 07/07/20 21:51 Dose: 50 mg Documented by: Admin: 07/07/20 08:00 Dose: 50 mg Documented by: DUTCH Morphine Sulfate (Morphine 2 Mg/Ml Syringe) 1 - 2 mg IVPUSH Q3H PRN PRN Reason: Pain Omeprazole (Omeprazole 20 Mg Cap.Cr) 20 mg PO BEDTIME [facility] Last Admin: 07/07/20 21:51 Dose: 20 mg Documented by: Admin: 07/06/20 21:20 Dose: 20 mg Documented by: Admin: 07/05/20 20:42 Dose: 20 mg Documented by: Admin: 07/04/20 21:07 Dose: 20 mg Documented by: NAOMI Ondansetron HCl (Ondansetron 4 Mg Tab.Dis) 4 mg PO Q6H PRN PRN Reason: nausea, able to take PO Ondansetron HCl (Ondansetron 4 Mg/2 Ml Sdv) 4 mg IVPUSH Q6H PRN PRN Reason: Nausea/Vomiting Oxycodone HCl (Oxycodone 5 Mg Tab) 5 - 10 mg PO Q4H PRN PRN Reason: Pain Last Admin: 07/08/20 06:46 Dose: 5 mg Documented by: Admin: 07/07/20 18:50 Dose: 5 mg Documented by: Admin: 07/07/20 10:26 Dose: 5 mg Documented by: [email or web address] Admin: 07/06/20 22:29 Dose: 5 mg Documented by: VENITA Polyethylene Glycol (Polyethylene Glycol 3350 Powder 17 Gm Packet) 17 gm PO DAILY EVERARDO Last Admin: 07/07/20 07:59 Dose: 17 gm Documented by: [email or web address] - Assessment Assessment (Free Text/Narrative):: 1) s/p ORIF Right femoral neck fracture 2) s/p ORIF Left humerus shaft fracture 3) anemia - Plan Plan (Free Text/Narrative):: Veronica is aware of upcoming admission to SNF in [place], [place] for her recovery. Spoke with case managment this morning, who will inquire about mode of transportation for her (?need for community van or ambulance transfer d/t her limited mobility). Continue PT for strengthening for transfers. TODD KINGSLEY. Pain manageable/tolerable with oral medications.
[2020-07-08] MEDS: Polyethylene Glycol 3350 Powder 17 GM Packet PO SCH (08:45)
[2020-07-08] MEDS: Carvedilol 25 MG Tab PO SCH ×2 (08:46→21:44)
[2020-07-08] MEDS: Losartan 50 MG Tab PO SCH ×2 (08:46→21:42)
[2020-07-08] MEDS: Docusate Sodium 100 MG Cap PO SCH ×2 (08:47→21:00)
[2020-07-08] MEDS: atorvaSTATin 40 MG Tab PO SCH (08:47)
[2020-07-08] MEDS: Aspirin 325 MG Tab PO SCH (08:48)
[2020-07-08] MEDS: Famotidine 20 MG Tab PO SCH (08:48)
[2020-07-08] MEDS: Insulin Glargine,Human Rec. Analog 100 Units/ML 3 ML Pen SUBCUT SCH ×2 (08:48→21:00)
[2020-07-08] MEDS ORDERED: Sodium Chloride 0.9% 500 ML IV ONE (11:43)
--- NOTE | 2020-07-08 12:54 | PCM.PN ---
- General Info Date of Service: 07/08/20 Subjective Update: Bedside: mentions no acute distress but does feel tired. Mentions pain is under control w. current regimen - Review of Systems General: Reports: Fatigue HEENT: Reports: No Symptoms Cardiovascular: Reports: No Symptoms Gastrointestinal: Reports: No Symptoms Musculoskeletal: Denies: Arm Pain, Leg Pain Neurological: Reports: No Symptoms Psychiatric: Reports: No Symptoms - Patient Data Vitals - Most Recent: Last Vital Signs Temp 98.0 F 07/08/20 12:03 Pulse 65 07/08/20 12:03 Resp 17 07/08/20 12:03 BP 102/53 L 07/08/20 12:03 Pulse Ox 92 L 07/08/20 12:03 Weight - Most Recent: 91.5 kg I&O - Last 24 Hours: Intake & Output 07/07/20 07/08/20 07/08/20 22:59 06:59 14:59 Intake Total 1600 1000 Output Total 41 50 Balance 120F 52< @ Lab Results Last 24 Hours: Laboratory Results - last 24 hr 07/06/20 07/07/20 07/07/20 Range/Units 07:28 16:44 21:47 WBC (4.0-11.0) K/uL RBC (4.30-5.90) M/uL Hgb (12.0-16.0) g/dL Hct (36.0-46.0) % MCV (80.0-98.0) fL MCH (27.0-32.0) pg MCHC (31.0-37.0) g/dL RDW Std Deviation (28.0-62.0) fl RDW Coeff of Grace (11.0-15.0) % Plt Count (150-400) K/uL MPV (7.40-12.00) fL Neut % (Auto) (48.0-80.0) % Lymph % (Auto) (16.0-40.0) % [place] % (Auto) (0.0-15.0) % Eos % (Auto) (0.0-7.0) % Baso % (Auto) (0.0-1.5) % Neut # (Auto) (1.4-5.7) K/uL Lymph # (Auto) (0.6-2.4) K/uL [place] # (Auto) (0.0-0.8) K/uL Eos # (Auto) (0.0-0.7) K/uL Baso # (Auto) (0.0-0.1) K/uL Nucleated RBC % /100WBC Nucleated RBCs # K/uL Sodium (136-145) mmol/L Potassium (3.5-5.1) mmol/L Chloride (98-107) mmol/L Carbon Dioxide (21.0-32.0) mmol/L BUN (7.0-18.0) mg/dL Creatinine (0.6-1.0) mg/dL Est Cr Clr Drug Dosing mL/min Estimated GFR (MDRD) ml/min Glucose (74-106) mg/dL POC Glucose 312 H 272 H (70-99) mg/dL Calcium (8.5-10.1) mg/dL Blood Type O NEGATIVE Antibody Screen NEGATIVE Crossmatch See Detail 07/08/20 07/08/20 07/08/20 Range/Units 05:41 05:41 06:43 WBC 6.54 (4.0-11.0) K/uL RBC 3.03 L (4.30-5.90) M/uL Hgb 9.4 L (12.0-16.0) g/dL Hct 28.5 L (36.0-46.0) % MCV 94.1 (80.0-98.0) fL MCH 31.0 (27.0-32.0) pg MCHC 33.0 (31.0-37.0) g/dL RDW Std Deviation 52.4 (28.0-62.0) fl RDW Coeff of Grace 15 (11.0-15.0) % Plt Count 110 L (150-400) K/uL MPV 11.10 (7.40-12.00) fL Neut % (Auto) 71.4 (48.0-80.0) % Lymph % (Auto) 12.7 L (16.0-40.0) % [place] % (Auto) 13.9 (0.0-15.0) % Eos % (Auto) 1.8 (0.0-7.0) % Baso % (Auto) 0.2 (0.0-1.5) % Neut # (Auto) 4.7 (1.4-5.7) K/uL Lymph # (Auto) 0.8 (0.6-2.4) K/uL [place]on # (Auto) 0.9 H (0.0-0.8) K/uL Eos # (Auto) 0.1 (0.0-0.7) K/uL Baso # (Auto) 0.0 (0.0-0.1) K/uL Nucleated RBC % 0.0 /100WBC Nucleated RBCs # 0 K/uL Sodium 129 L (136-145) mmol/L Potassium 4.0 (3.5-5.1) mmol/L Chloride 99 (98-107) mmol/L Carbon Dioxide 23.2 (21.0-32.0) mmol/L BUN 38 H (7.0-18.0) mg/dL Creatinine 1.3 H (0.6-1.0) mg/dL Est Cr Clr Drug Dosing 28.92 mL/min Estimated GFR (MDRD) 40.5 ml/min Glucose 271 H (74-106) mg/dL POC Glucose 249 H (70-99) mg/dL Calcium 6.8 L (8.5-10.1) mg/dL Blood Type Antibody Screen Crossmatch 07/08/20 Range/Units 11:57 WBC (4.0-11.0) K/uL RBC (4.30-5.90) M/uL Hgb (12.0-16.0) g/dL Hct (36.0-46.0) % MCV (80.0-98.0) fL MCH (27.0-32.0) pg MCHC (31.0-37.0) g/dL RDW Std Deviation (28.0-62.0) fl RDW Coeff of Grace (11.0-15.0) % Plt Count (150-400) K/uL MPV (7.40-12.00) fL Neut % (Auto) (48.0-80.0) % Lymph % (Auto) (16.0-40.0) % [place] % (Auto) (0.0-15.0) % Eos % (Auto) (0.0-7.0) % Baso % (Auto) (0.0-1.5) % Neut # (Auto) (1.4-5.7) K/uL Lymph # (Auto) (0.6-2.4) K/uL [place] # (Auto) (0.0-0.8) K/uL Eos # (Auto) (0.0-0.7) K/uL Baso # (Auto) (0.0-0.1) K/uL Nucleated RBC % /100WBC Nucleated RBCs # K/uL Sodium (136-145) mmol/L Potassium (3.5-5.1) mmol/L Chloride (98-107) mmol/L Carbon Dioxide (21.0-32.0) mmol/L BUN (7.0-18.0) mg/dL Creatinine (0.6-1.0) mg/dL Est Cr Clr Drug Dosing mL/min Estimated GFR (MDRD) ml/min Glucose (74-106) mg/dL POC Glucose 320 H (70-99) mg/dL Calcium (8.5-10.1) mg/dL Blood Type Antibody Screen Crossmatch Med Orders - Current: Current Medications Acetaminophen (Acetaminophen 325 Mg Tab) 650 mg PO Q6H [facility] Last Admin: 07/08/20 08:47 Dose: 650 mg Documented by: Al Hydroxide/Mg Hydroxide (Aluminum Hydroxide/Magnesium Hydroxide/Simethicone Susp 30 Ml Cup) 30 ml PO Q4H PRN PRN Reason: Indigestion Aspirin (Aspirin 325 Mg Tab) 325 mg PO DAILY [facility] Last Admin: 07/08/20 08:48 Dose: 325 mg Documented by: Atorvastatin Calcium (Atorvastatin 40 Mg Tab) 40 mg PO DAILY [facility] Last Admin: 07/08/20 08:47 Dose: 40 mg Documented by: Bisacodyl (Bisacodyl 10 Mg Supp) 10 mg RECTAL DAILY PRN PRN Reason: Constipation Carvedilol (Carvedilol 25 Mg Tab) 25 mg PO BID [facility] Last Admin: 07/08/20 08:46 Dose: 25 mg Documented by: Dextrose/Water (50% Dextrose In Water 50 Ml Syringe) 50 ml IV ASDIRECTED PRN PRN Reason: Hypoglycemia Diphenhydramine HCl (Diphenhydramine 25 Mg Cap) 25 - 50 mg PO Q6H PRN PRN Reason: Itching Docusate Sodium (Docusate Sodium 100 Mg Cap) 100 mg PO Q12HR [facility] Last Admin: 07/08/20 08:47 Dose: 100 mg Documented by: Famotidine (Famotidine 20 Mg Tab) 40 mg PO DAILY [facility] Last Admin: 07/08/20 08:48 Dose: 40 mg Documented by: Glucagon (Glucagon,Human Recombinant 1 Mg Vial) 1 mg IM ASDIRECTED PRN PRN Reason: Hypoglycemia Hydralazine HCl (Hydralazine 20 Mg/Ml Sdv) 5 mg IVPUSH Q15M PRN PRN Reason: Hypertension Last Admin: 07/06/20 14:20 Dose: 5 mg Documented by: Cefazolin Sodium/Dextrose 2 gm (/ Premix) 50 mls @ 100 mls/hr IV ONCALL [facility] Last Admin: 07/06/20 19:54 Dose: 100 mls/hr Documented by: Acetaminophen 1,000 mg/ Premix 100 mls @ 400 mls/hr IV Q6H PRN PRN Reason: Pain Last Admin: 07/06/20 13:47 Dose: 400 mls/hr Documented by: Sodium Chloride (Normal Saline) 500 mls @ 999 mls/hr IV STAT [facility] Last Admin: 07/07/20 09:03 Dose: 999 mls/hr Documented by: Sodium Chloride (Normal Saline) 500 mls @ 100 mls/hr IV ONETIME ONE Stop: 07/08/20 16:42 Last Admin: 07/08/20 12:08 Dose: 100 mls/hr Documented by: Ibuprofen (Ibuprofen 400 Mg Tab) 400 mg PO Q4H PRN PRN Reason: Pain Last Admin: 07/08/20 09:54 Dose: 400 mg Documented by: Insulin Aspart (Insulin Aspart 100 Units/Ml 3 Ml Pen) 0 unit SUBCUT TIDAC [facility]; Protocol Last Admin: 07/08/20 12:01 Dose: 12 unit Documented by: Insulin Glargine (Insulin Glargine,Human Rec. Analog 100 Units/Ml 3 Ml Pen) 14 units SUBCUT BEDTIME [facility] Last Admin: 07/07/20 21:48 Dose: 14 units Documented by: Insulin Glargine (Insulin Glargine,Human Rec. Analog 100 Units/Ml 3 Ml Pen) 22 units SUBCUT DAILY [facility] Last Admin: 07/08/20 08:48 Dose: 22 units Documented by: Levothyroxine Sodium (Levothyroxine 75 Mcg Tab) 75 mcg PO ACBRK [facility] Last Admin: 07/08/20 06:44 Dose: 75 mcg Documented by: Losartan Potassium (Losartan 50 Mg Tab) 50 mg PO BID [facility] Last Admin: 07/08/20 08:46 Dose: 50 mg Documented by: Morphine Sulfate (Morphine 2 Mg/Ml Syringe) 1 - 2 mg IVPUSH Q3H PRN PRN Reason: Pain Omeprazole (Omeprazole 20 Mg Cap.Cr) 20 mg PO BEDTIME [facility] Last Admin: 07/07/20 21:51 Dose: 20 mg Documented by: Ondansetron HCl (Ondansetron 4 Mg Tab.Dis) 4 mg PO Q6H PRN PRN Reason: nausea, able to take PO Ondansetron HCl (Ondansetron 4 Mg/2 Ml Sdv) 4 mg IVPUSH Q6H PRN PRN Reason: Nausea/Vomiting Oxycodone HCl (Oxycodone 5 Mg Tab) 5 - 10 mg PO Q4H PRN PRN Reason: Pain Last Admin: 07/08/20 12:08 Dose: 10 mg Documented by: Polyethylene Glycol (Polyethylene Glycol 3350 Powder 17 Gm Packet) 17 gm PO DAILY [facility] Last Admin: 07/08/20 08:45 Dose: 17 gm Documented by: Discontinued Medications Bupivacaine HCl (Bupivacaine 0.5% 30 Ml Sdv) Confirm Administered Dose 30 ml .ROUTE .STK-MED ONE Stop: 07/06/20 06:57 Cefazolin Sodium (Cefazolin 1 Gm Vial) Confirm Administered Dose 2 gm .ROUTE .STK-MED ONE Stop: 07/06/20 07:57 Cefazolin Sodium (Cefazolin 1 Gm Vial) Confirm Administered Dose 2 gm .ROUTE .STK-MED ONE Stop: 07/06/20 11:24 Dextrose/Water (50% Dextrose In Water 50 Ml Syringe) 50 ml IV ASDIRECTED PRN PRN Reason: Hypoglycemia Fentanyl (Fentanyl 100 Mcg/2 Ml Sdv) Confirm Administered Dose 100 mcg .ROUTE .STK-MED ONE Stop: 07/06/20 07:04 Fentanyl (Fentanyl 250 Mcg/5 Ml Sdv) Confirm Administered Dose 250 mcg .ROUTE .STK-MED ONE Stop: 07/06/20 07:59 Fentanyl (Fentanyl 100 Mcg/2 Ml Sdv) 50 mcg IVPUSH Q5M PRN PRN Reason: Pain Last Admin: 07/06/20 14:41 Dose: 50 mcg Documented by: Glucagon (Glucagon,Human Recombinant 1 Mg Vial) 1 mg IM ASDIRECTED PRN PRN Reason: Hypoglycemia Glycopyrrolate (Glycopyrrolate 0.2 Mg/Ml Sdv) Confirm Administered Dose 0.2 mg .ROUTE .STK-MED ONE Stop: 07/06/20 07:01 Heparin Sodium (Porcine) (Heparin Sodium 5,000 Units/Ml Vial) 5,000 units SUBCUT Q8H [facility] Stop: 07/05/20 17:00 Last Admin: 07/05/20 11:20 Dose: 5,000 units Documented by: Hydralazine HCl (Hydralazine 20 Mg/Ml Sdv) Confirm Administered Dose 20 mg .ROUTE .STK-MED ONE Stop: 07/06/20 14:18 Last Admin: 07/06/20 15:26 Dose: Not Given Documented by: Hydrochlorothiazide (Hydrochlorothiazide 25 Mg Tab) 25 mg PO DAILY [facility] Sodium Chloride (Normal Saline) 1,000 mls @ 999 mls/hr IV .Bolus ONE Stop: 07/04/20 21:50 Last Admin: 07/04/20 21:03 Dose: 999 mls/hr Documented by: Sodium Chloride (Normal Saline) 1,000 mls @ 100 mls/hr IV CONTINUOUS ONE Stop: 07/06/20 05:21 Last Admin: 07/05/20 20:44 Dose: 100 mls/hr Documented by: Sodium Chloride (Normal Saline) Confirm Administered Dose 20 mls @ as directed .ROUTE .STK-MED ONE Stop: 07/06/20 06:59 Sodium Chloride (Normal Saline) Confirm Administered Dose 20 mls @ as directed .ROUTE .STK-MED ONE Stop: 07/06/20 07:57 Sodium Chloride (Normal Saline) Confirm Administered Dose 20 mls @ as directed .ROUTE .STK-MED ONE Stop: 07/06/20 11:24 Cefazolin Sodium/Dextrose 2 gm (/ Premix) 50 mls @ 100 mls/hr IV Q8H [facility] Stop: 07/07/20 04:29 Last Admin: 07/07/20 03:32 Dose: 100 mls/hr Documented by: Acetaminophen (Ofirmev 1000 Mg/100 Ml) Confirm Administered Dose 100 mls @ as directed .ROUTE .STK-MED ONE Stop: 07/06/20 13:41 Sodium Chloride (Normal Saline) 1,000 mls @ 75 mls/hr IV ASDIRECTED EVEARRDO Stop: 07/07/20 16:00 Sodium Chloride (Normal Saline) 1,000 mls @ 75 mls/hr IV ONETIME ONE Stop: 07/07/20 22:25 Last Admin: 07/07/20 10:28 Dose: 75 mls/hr Documented by: Ibuprofen (Ibuprofen 600 Mg Tab) 600 mg PO ONETIME ONE Stop: 07/04/20 19:07 Last Admin: 07/04/20 19:22 Dose: 600 mg Documented by: Insulin Glargine (Insulin Glargine,Human Rec. Analog 100 Units/Ml 3 Ml Pen) 22 units SUBCUT ONETIME ONE Stop: 07/05/20 11:31 Last Admin: 07/05/20 11:18 Dose: 22 units Documented by: Insulin Glargine (Insulin Glargine,Human Rec. Analog 100 Units/Ml 3 Ml Pen) 11 units SUBCUT ONETIME ONE Stop: 07/06/20 05:01 Last Admin: 07/06/20 04:54 Dose: 11 units Documented by: Insulin Glargine (Insulin Glargine,Human Rec. Analog 100 Units/Ml 3 Ml Pen) 7 units SUBCUT BEDTIME [facility] Last Admin: 07/05/20 20:48 Dose: 7 units Documented by: Insulin Human Regular (Insulin Regular, Human 100 Units/Ml 10 Ml Vial) Confirm Administered Dose 1,000 unit .ROUTE .STK-MED ONE Stop: 07/06/20 07:36 Ketamine HCl (Ketamine 500 Mg/10 Ml Mdv) Confirm Administered Dose 500 mg .ROUTE .STK-MED ONE Stop: 07/06/20 08:01 Ketorolac Tromethamine (Ketorolac 30 Mg/Ml Sdv) Confirm Administered Dose 30 mg .ROUTE .STK-MED ONE Stop: 07/06/20 07:01 Lidocaine (Lidocaine 2% 5 Ml Sdv) Confirm Administered Dose 5 ml .ROUTE .STK-MED ONE Stop: 07/06/20 07:01 Losartan Potassium (Losartan 50 Mg Tab) 50 mg PO BID [facility] Midazolam HCl (Midazolam 1 Mg/Ml 2 Ml Sdv) Confirm Administered Dose 2 mg .ROUTE .STK-MED ONE Stop: 07/06/20 07:03 Midazolam HCl (Midazolam 1 Mg/Ml 2 Ml Sdv) Confirm Administered Dose 2 mg .ROUTE .STK-MED ONE Stop: 07/06/20 07:03 Ondansetron HCl (Ondansetron 4 Mg/2 Ml Sdv) Confirm Administered Dose 4 mg .ROUTE .STK-MED ONE Stop: 07/06/20 07:01 Oxycodone HCl (Oxycodone 5 Mg Tab) 5 mg PO Q4H PRN PRN Reason: Pain (moderate 4-6) Last Admin: 07/06/20 04:53 Dose: 5 mg Documented by: Phenylephrine HCl (Phenylephrine 1% 10 Mg/Ml Sdv) Confirm Administered Dose 10 mg .ROUTE .STK-MED ONE Stop: 07/06/20 06:40 Propofol (Propofol 200 Mg/20 Ml Sdv) Confirm Administered Dose 200 mg .ROUTE .STK-MED ONE Stop: 07/06/20 07:03 Rocuronium Mccormick (Rocuronium Mccormick 50 Mg/5 Ml Syringe) Confirm Administered Dose 50 mg .ROUTE .STK-MED ONE Stop: 07/06/20 07:01 Rocuronium Mccormick (Rocuronium Mccormick 50 Mg/5 Ml Syringe) Confirm Administered Dose 50 mg .ROUTE .STK-MED ONE Stop: 07/06/20 10:28 Sugammadex Sodium (Sugammadex Sodium 200 Mg/2 Ml Vial) Confirm Administered Dose 200 mg .ROUTE .STK-MED ONE Stop: 07/06/20 08:53 Tranexamic Acid (Tranexamic Acid 1,000 Mg/10 Ml Amp) Confirm Administered Dose 1,000 mg .ROUTE .STK-MED ONE Stop: 07/06/20 09:40 - Exam Urinary Catheter Total Time: 3Days 17Hours General: Alert, Oriented HEENT: EOMI Neck: Supple Lungs: Clear to Auscultation, Normal Respiratory Effort Cardiovascular: Regular Rate GI/Abdominal Exam: Soft Extremities: Other (wound vac in situ ; able to wiggle fingers toes and move extremities albeit limited by pain ) Neurological: No New Focal Deficit Psy/Mental Status: Alert, Normal Mood - Patient Data Lab Results Last 24 hrs: Laboratory Results - last 24 hr 07/06/20 07/07/20 07/07/20 Range/Units 07:28 16:44 21:47 WBC (4.0-11.0) K/uL RBC (4.30-5.90) M/uL Hgb (12.0-16.0) g/dL Hct (36.0-46.0) % MCV (80.0-98.0) fL MCH (27.0-32.0) pg MCHC (31.0-37.0) g/dL RDW Std Deviation (28.0-62.0) fl RDW Coeff of Grace (11.0-15.0) % Plt Count (150-400) K/uL MPV (7.40-12.00) fL Neut % (Auto) (48.0-80.0) % Lymph % (Auto) (16.0-40.0) % [place]on % (Auto) (0.0-15.0) % Eos % (Auto) (0.0-7.0) % Baso % (Auto) (0.0-1.5) % Neut # (Auto) (1.4-5.7) K/uL Lymph # (Auto) (0.6-2.4) K/uL [place] # (Auto) (0.0-0.8) K/uL Eos # (Auto) (0.0-0.7) K/uL Baso # (Auto) (0.0-0.1) K/uL Nucleated RBC % /100WBC Nucleated RBCs # K/uL Sodium (136-145) mmol/L Potassium (3.5-5.1) mmol/L Chloride (98-107) mmol/L Carbon Dioxide (21.0-32.0) mmol/L BUN (7.0-18.0) mg/dL Creatinine (0.6-1.0) mg/dL Est Cr Clr Drug Dosing mL/min Estimated GFR (MDRD) ml/min Glucose (74-106) mg/dL POC Glucose 312 H 272 H (70-99) mg/dL Calcium (8.5-10.1) mg/dL Blood Type O NEGATIVE Antibody Screen NEGATIVE Crossmatch See Detail 07/08/20 07/08/20 07/08/20 Range/Units 05:41 05:41 06:43 WBC 6.54 (4.0-11.0) K/uL RBC 3.03 L (4.30-5.90) M/uL Hgb 9.4 L (12.0-16.0) g/dL Hct 28.5 L (36.0-46.0) % MCV 94.1 (80.0-98.0) fL MCH 31.0 (27.0-32.0) pg MCHC 33.0 (31.0-37.0) g/dL RDW Std Deviation 52.4 (28.0-62.0) fl RDW Coeff of Grace 15 (11.0-15.0) % Plt Count 110 L (150-400) K/uL MPV 11.10 (7.40-12.00) fL Neut % (Auto) 71.4 (48.0-80.0) % Lymph % (Auto) 12.7 L (16.0-40.0) % [place] % (Auto) 13.9 (0.0-15.0) % Eos % (Auto) 1.8 (0.0-7.0) % Baso % (Auto) 0.2 (0.0-1.5) % Neut # (Auto) 4.7 (1.4-5.7) K/uL Lymph # (Auto) 0.8 (0.6-2.4) K/uL [place] # (Auto) 0.9 H (0.0-0.8) K/uL Eos # (Auto) 0.1 (0.0-0.7) K/uL Baso # (Auto) 0.0 (0.0-0.1) K/uL Nucleated RBC % 0.0 /100WBC Nucleated RBCs # 0 K/uL Sodium 129 L (136-145) mmol/L Potassium 4.0 (3.5-5.1) mmol/L Chloride 99 (98-107) mmol/L Carbon Dioxide 23.2 (21.0-32.0) mmol/L BUN 38 H (7.0-18.0) mg/dL Creatinine 1.3 H (0.6-1.0) mg/dL Est Cr Clr Drug Dosing 28.92 mL/min Estimated GFR (MDRD) 40.5 ml/min Glucose 271 H (74-106) mg/dL POC Glucose 249 H (70-99) mg/dL Calcium 6.8 L (8.5-10.1) mg/dL Blood Type Antibody Screen Crossmatch 07/08/20 Range/Units 11:57 WBC (4.0-11.0) K/uL RBC (4.30-5.90) M/uL Hgb (12.0-16.0) g/dL Hct (36.0-46.0) % MCV (80.0-98.0) fL MCH (27.0-32.0) pg MCHC (31.0-37.0) g/dL RDW Std Deviation (28.0-62.0) fl RDW Coeff of Grace (11.0-15.0) % Plt Count (150-400) K/uL MPV (7.40-12.00) fL Neut % (Auto) (48.0-80.0) % Lymph % (Auto) (16.0-40.0) % [place]on % (Auto) (0.0-15.0) % Eos % (Auto) (0.0-7.0) % Baso % (Auto) (0.0-1.5) % Neut # (Auto) (1.4-5.7) K/uL Lymph # (Auto) (0.6-2.4) K/uL [place] # (Auto) (0.0-0.8) K/uL Eos # (Auto) (0.0-0.7) K/uL Baso # (Auto) (0.0-0.1) K/uL Nucleated RBC % /100WBC Nucleated RBCs # K/uL Sodium (136-145) mmol/L Potassium (3.5-5.1) mmol/L Chloride (98-107) mmol/L Carbon Dioxide (21.0-32.0) mmol/L BUN (7.0-18.0) mg/dL Creatinine (0.6-1.0) mg/dL Est Cr Clr Drug Dosing mL/min Estimated GFR (MDRD) ml/min Glucose (74-106) mg/dL POC Glucose 320 H (70-99) mg/dL Calcium (8.5-10.1) mg/dL Blood Type Antibody Screen Crossmatch Result Diagrams: 07/08/20 05:41 07/08/20 05:41 Sepsis Event Note - Evaluation Sepsis Screening Result: No Definite Risk - Focused Exam Vital Signs: Vital Signs Temp Pulse Pulse Resp BP BP Pulse Ox 07/08/20 12:03 98.0 F 65 17 102/53 L 92 L 07/08/20 08:46 68 153/71 H 07/08/20 08:00 97.5 F 68 17 153/71 H 95 07/08/20 04:20 98.6 F 62 17 116/62 94 L - Problem List & Annotations (1) Closed right hip fracture SNOMED Code(s): 410108179 Code(s): S72.001A - FRACTURE OF UNSP PART OF NECK OF RIGHT FEMUR, INIT Status: Acute Current Visit: Yes (2) Left humeral fracture SNOMED Code(s): 38183626 Code(s): S42.302A - UNSP FRACTURE OF SHAFT OF HUMERUS, LEFT ARM, INIT Status: Acute Current Visit: Yes (3) Diabetes SNOMED Code(s): 19436649 Code(s): E11.9 - TYPE 2 DIABETES MELLITUS WITHOUT COMPLICATIONS Status: Acu te Current Visit: Yes (4) Hypertension SNOMED Code(s): 05459822 Code(s): I10 - ESSENTIAL (PRIMARY) HYPERTENSION Status: Acute Current Visit: Yes (5) Obesity SNOMED Code(s): 208819324, 876766326 Code(s): E66.9 - OBESITY, UNSPECIFIED Status: Acute Current Visit: Yes - Problem List Review Problem List Initiated/Reviewed/Updated: Yes - My Orders Last 24 Hours: My Active Orders 07/07/20 12:15 Insulin Glarg,Human.Rec.Analog [LantUS Solostar] 22 units SUBCUT DAILY 07/07/20 16:51 Renew/Continue Urinary Catheter [OM.PC] Routine 07/09/20 05:11 BMP [BASIC METABOLIC PANEL,BMP] [CHEM] AM CBC WITH AUTO DIFF [HEME] AM 07/10/20 05:11 BMP [BASIC METABOLIC PANEL,BMP] [CHEM] AM CBC WITH AUTO DIFF [HEME] AM - Plan Plan:: Assessment: 1. Left humeral fracture/right hip fracture status post orthopedic repair 2. GIANNI 3. Hyperglycemia/ type II diabetic 4. Past medical history: Type 2 diabetes, hypertension, hyperlipidemia, hypothyroidism Plan 1. Left humerus /right hip fracture: S/p right hip/left humerus repair : seen at bedside; tired but alert and oriented. + constipation Continue pain control and DVT prophylaxis per primary surgical team Diet advanced to Diabetic diet; resume home AM/PM LA insulin + SSI 2. Type II DM: elevated A1c; TID accuchecks + SSI started +LA 3. HTN: restart losartan; hold Ibuprofen ; mild GIANNI noted : 500 cc bolus NS this AM ; recheck BMP in AM; encourage PO intake ; will still continue w. removing Keita catheter per primary team ; if Cr trending-up; consider hold losartan
--- NOTE | 2020-07-08 13:31 | CR ---
INDICATION: Fracture. TECHNIQUE: Intraoperative C-arm fluoroscopy. IMPRESSION: Intraoperative C-arm fluoroscopy was provided. Fluoroscopy time greater than 1 hour. Thirteen images were captured. Dictated by Isidro Herbert MD @ 07/08/2020 1:29:[address] Isidro Herbert @ Jul 08 2020 1:29PM
--- NOTE | 2020-07-08 13:33 | CR ---
INDICATION: Fracture. TECHNIQUE: Intraoperative C-arm fluoroscopy. IMPRESSION: Intraoperative C-arm fluoroscopy was provided. Fluoroscopy time greater than 1 hour. Four images were captured. Dictated by Isidro Herbert MD @ 07/08/2020 1:32:[address] Isidro Herbert @ Jul 08 2020 1:32PM
[2020-07-08] MEDS: Omeprazole 20 MG Cap.CR PO SCH (21:00)
[2020-07-08] MEDS: Morphine 2 MG/ML SYRINGE IVPUSH PRN (23:25)
[2020-07-09] MEDS: Acetaminophen 325 MG Tab PO SCH ×4 (03:00→20:31)
[2020-07-09 06:28] LABS: CARBON DIOXIDE,CO2 23.3 mmol/L (21.0-32.0); POTASSIUM,K 4.5 mmol/L (3.5-5.1)
[2020-07-09] MEDS: Levothyroxine 75 MCG Tab PO SCH (08:00)
[2020-07-09] MEDS: Polyethylene Glycol 3350 Powder 17 GM Packet PO SCH (08:01)
[2020-07-09] MEDS: Carvedilol 25 MG Tab PO SCH ×2 (08:05→20:31)
[2020-07-09] MEDS: Losartan 50 MG Tab PO SCH ×2 (08:08→20:31)
[2020-07-09] MEDS: Docusate Sodium 100 MG Cap PO SCH ×2 (08:09→20:31)
[2020-07-09] MEDS: Aspirin 325 MG Tab PO SCH (08:09)
[2020-07-09] MEDS: atorvaSTATin 40 MG Tab PO SCH (08:09)
[2020-07-09] MEDS: Famotidine 20 MG Tab PO SCH (08:10)
[2020-07-09] MEDS: Insulin Aspart 100 Units/ML 3 ML Pen SUBCUT SCH ×3 (08:27→17:34)
[2020-07-09] MEDS: Insulin Glargine,Human Rec. Analog 100 Units/ML 3 ML Pen SUBCUT SCH ×2 (08:28→20:35)
[2020-07-09] MEDS: oxyCODONE 5 MG Tab PO PRN (09:58)
--- NOTE | 2020-07-09 13:25 | PCM.PN ---
- General Info Date of Service: 07/09/20 - Review of Systems Systems Review Comment:: pain controlled - Patient Data Vitals - Most Recent: Last Vital Signs Temp 36.5 C 07/09/20 12:10 Pulse 59 L 07/09/20 12:10 Resp 16 07/09/20 12:10 BP 102/40 L 07/09/20 12:10 Pulse Ox 93 L 07/09/20 12:10 Weight - Most Recent: 91.5 kg I&O - Last 24 Hours: Intake & Output 07/08/20 07/09/20 07/09/20 22:59 06:59 14:59 Intake Total 650 350 Output Total 55 295 Balance 116 55 Lab Results Last 24 Hours: Laboratory Results - last 24 hr 07/08/20 07/08/20 07/09/20 Range/Units 16:54 21:50 05:10 WBC 4.67 (4.0-11.0) K/uL RBC 3.00 L (4.30-5.90) M/uL Hgb 9.5 L (12.0-16.0) g/dL Hct 28.7 L (36.0-46.0) % MCV 95.7 (80.0-98.0) fL MCH 31.7 (27.0-32.0) pg MCHC 33.1 (31.0-37.0) g/dL RDW Std Deviation 52.3 (28.0-62.0) fl RDW Coeff of Grace 15 (11.0-15.0) % Plt Count 125 L (150-400) K/uL MPV 11.70 (7.40-12.00) fL Neut % (Auto) 72.9 (48.0-80.0) % Lymph % (Auto) 11.3 L (16.0-40.0) % [place] % (Auto) 13.9 (0.0-15.0) % Eos % (Auto) 1.7 (0.0-7.0) % Baso % (Auto) 0.2 (0.0-1.5) % Neut # (Auto) 3.4 (1.4-5.7) K/uL Lymph # (Auto) 0.5 L (0.6-2.4) K/uL [place] # (Auto) 0.7 (0.0-0.8) K/uL Eos # (Auto) 0.1 (0.0-0.7) K/uL Baso # (Auto) 0.0 (0.0-0.1) K/uL Nucleated RBC % 0.0 /100WBC Nucleated RBCs # 0 K/uL Sodium (136-145) mmol/L Potassium (3.5-5.1) mmol/L Chloride (98-107) mmol/L Carbon Dioxide (21.0-32.0) mmol/L BUN (7.0-18.0) mg/dL Creatinine (0.6-1.0) mg/dL Est Cr Clr Drug Dosing mL/min Estimated GFR (MDRD) ml/min Glucose (74-106) mg/dL POC Glucose 304 H 318 H (70-99) mg/dL Calcium (8.5-10.1) mg/dL 07/09/20 07/09/20 07/09/20 Range/Units 05:10 07:17 11:21 WBC (4.0-11.0) K/uL RBC (4.30-5.90) M/uL Hgb (12.0-16.0) g/dL Hct (36.0-46.0) % MCV (80.0-98.0) fL MCH (27.0-32.0) pg MCHC (31.0-37.0) g/dL RDW Std Deviation (28.0-62.0) fl RDW Coeff of Grace (11.0-15.0) % Plt Count (150-400) K/uL MPV (7.40-12.00) fL Neut % (Auto) (48.0-80.0) % Lymph % (Auto) (16.0-40.0) % Jefferson % (Auto) (0.0-15.0) % Eos % (Auto) (0.0-7.0) % Baso % (Auto) (0.0-1.5) % Neut # (Auto) (1.4-5.7) K/uL Lymph # (Auto) (0.6-2.4) K/uL Jefferson # (Auto) (0.0-0.8) K/uL Eos # (Auto) (0.0-0.7) K/uL Baso # (Auto) (0.0-0.1) K/uL Nucleated RBC % /100WBC Nucleated RBCs # K/uL Sodium 130 L (136-145) mmol/L Potassium 4.5 (3.5-5.1) mmol/L Chloride 98 (98-107) mmol/L Carbon Dioxide 23.3 (21.0-32.0) mmol/L BUN 38 H (7.0-18.0) mg/dL Creatinine 1.1 H (0.6-1.0) mg/dL Est Cr Clr Drug Dosing 34.18 mL/min Estimated GFR (MDRD) 49.1 ml/min Glucose 361 H (74-106) mg/dL POC Glucose 345 H 344 H (70-99) mg/dL Calcium 7.0 L (8.5-10.1) mg/dL Med Orders - Current: Current Medications Acetaminophen (Acetaminophen 325 Mg Tab) 650 mg PO Q6H [facility] Last Admin: 07/09/20 08:03 Dose: 650 mg Documented by: Al Hydroxide/Mg Hydroxide (Aluminum Hydroxide/Magnesium Hydroxide/Simethicone Susp 30 Ml Cup) 30 ml PO Q4H PRN PRN Reason: Indigestion Aspirin (Aspirin 325 Mg Tab) 325 mg PO DAILY [facility] Last Admin: 07/09/20 08:09 Dose: 325 mg Documented by: Atorvastatin Calcium (Atorvastatin 40 Mg Tab) 40 mg PO DAILY [facility] Last Admin: 07/09/20 08:09 Dose: 40 mg Documented by: Bisacodyl (Bisacodyl 10 Mg Supp) 10 mg RECTAL DAILY PRN PRN Reason: Constipation Carvedilol (Carvedilol 25 Mg Tab) 25 mg PO BID [facility] Last Admin: 07/09/20 08:05 Dose: 25 mg Documented by: Dextrose/Water (50% Dextrose In Water 50 Ml Syringe) 50 ml IV ASDIRECTED PRN PRN Reason: Hypoglycemia Diphenhydramine HCl (Diphenhydramine 25 Mg Cap) 25 - 50 mg PO Q6H PRN PRN Reason: Itching Docusate Sodium (Docusate Sodium 100 Mg Cap) 100 mg PO Q12HR [facility] Last Admin: 07/09/20 08:09 Dose: 100 mg Documented by: Famotidine (Famotidine 20 Mg Tab) 40 mg PO DAILY [facility] Last Admin: 07/09/20 08:10 Dose: 40 mg Documented by: Glucagon (Glucagon,Human Recombinant 1 Mg Vial) 1 mg IM ASDIRECTED PRN PRN Reason: Hypoglycemia Hydralazine HCl (Hydralazine 20 Mg/Ml Sdv) 5 mg IVPUSH Q15M PRN PRN Reason: Hypertension Last Admin: 07/06/20 14:20 Dose: 5 mg Documented by: Cefazolin Sodium/Dextrose 2 gm (/ Premix) 50 mls @ 100 mls/hr IV ONCALL [facility] Last Admin: 07/06/20 19:54 Dose: 100 mls/hr Documented by: Acetaminophen 1,000 mg/ Premix 100 mls @ 400 mls/hr IV Q6H PRN PRN Reason: Pain Last Admin: 07/06/20 13:47 Dose: 400 mls/hr Documented by: Sodium Chloride (Normal Saline) 500 mls @ 999 mls/hr IV STAT [facility] Last Admin: 07/07/20 09:03 Dose: 999 mls/hr Documented by: Insulin Aspart (Insulin Aspart 100 Units/Ml 3 Ml Pen) 0 unit SUBCUT TIDAC [facility]; Protocol Last Admin: 07/09/20 12:13 Dose: 12 unit Documented by: Insulin Glargine (Insulin Glargine,Human Rec. Analog 100 Units/Ml 3 Ml Pen) 14 units SUBCUT BEDTIME [facility] Last Admin: 07/08/20 21:00 Dose: 14 units Documented by: Insulin Glargine (Insulin Glargine,Human Rec. Analog 100 Units/Ml 3 Ml Pen) 22 units SUBCUT DAILY [facility] Last Admin: 07/09/20 08:28 Dose: 22 units Documented by: Levothyroxine Sodium (Levothyroxine 75 Mcg Tab) 75 mcg PO ACBRK [facility] Last Admin: 07/09/20 08:00 Dose: 75 mcg Documented by: Losartan Potassium (Losartan 50 Mg Tab) 50 mg PO BID [facility] Last Admin: 07/09/20 08:08 Dose: 50 mg Documented by: Morphine Sulfate (Morphine 2 Mg/Ml Syringe) 1 - 2 mg IVPUSH Q3H PRN PRN Reason: Pain Last Admin: 07/08/20 23:25 Dose: 2 mg Documented by: Omeprazole (Omeprazole 20 Mg Cap.Cr) 20 mg PO BEDTIME [facility] Last Admin: 07/08/20 21:00 Dose: 20 mg Documented by: Ondansetron HCl (Ondansetron 4 Mg Tab.Dis) 4 mg PO Q6H PRN PRN Reason: nausea, able to take PO Ondansetron HCl (Ondansetron 4 Mg/2 Ml Sdv) 4 mg IVPUSH Q6H PRN PRN Reason: Nausea/Vomiting Oxycodone HCl (Oxycodone 5 Mg Tab) 5 - 10 mg PO Q4H PRN PRN Reason: Pain Last Admin: 07/09/20 09:58 Dose: 5 mg Documented by: Polyethylene Glycol (Polyethylene Glycol 3350 Powder 17 Gm Packet) 17 gm PO DAILY [facility] Last Admin: 07/09/20 08:01 Dose: 17 gm Documented by: Discontinued Medications Bupivacaine HCl (Bupivacaine 0.5% 30 Ml Sdv) Confirm Administered Dose 30 ml .RO ABIBE .STK-MED ONE Stop: 07/06/20 06:57 Cefazolin Sodium (Cefazolin 1 Gm Vial) Confirm Administered Dose 2 gm .ROUTE .STK-MED ONE Stop: 07/06/20 07:57 Cefazolin Sodium (Cefazolin 1 Gm Vial) Confirm Administered Dose 2 gm .ROUTE .STK-MED ONE Stop: 07/06/20 11:24 Dextrose/Water (50% Dextrose In Water 50 Ml Syringe) 50 ml IV ASDIRECTED PRN PRN Reason: Hypoglycemia Fentanyl (Fentanyl 100 Mcg/2 Ml Sdv) Confirm Administered Dose 100 mcg .ROUTE .STK-MED ONE Stop: 07/06/20 07:04 Fentanyl (Fentanyl 250 Mcg/5 Ml Sdv) Confirm Administered Dose 250 mcg .ROUTE .STK-MED ONE Stop: 07/06/20 07:59 Fentanyl (Fentanyl 100 Mcg/2 Ml Sdv) 50 mcg IVPUSH Q5M PRN PRN Reason: Pain Last Admin: 07/06/20 14:41 Dose: 50 mcg Documented by: Glucagon (Glucagon,Human Recombinant 1 Mg Vial) 1 mg IM ASDIRECTED PRN PRN Reason: Hypoglycemia Glycopyrrolate (Glycopyrrolate 0.2 Mg/Ml Sdv) Confirm Administered Dose 0.2 mg .ROUTE .STK-MED ONE Stop: 07/06/20 07:01 Heparin Sodium (Porcine) (Heparin Sodium 5,000 Units/Ml Vial) 5,000 units SUBCUT Q8H [facility] Stop: 07/05/20 17:00 Last Admin: 07/05/20 11:20 Dose: 5,000 units Documented by: Hydralazine HCl (Hydralazine 20 Mg/Ml Sdv) Confirm Administered Dose 20 mg .ROUTE .STK-MED ONE Stop: 07/06/20 14:18 Last Admin: 07/06/20 15:26 Dose: Not Given Documented by: Hydrochlorothiazide (Hydrochlorothiazide 25 Mg Tab) 25 mg PO DAILY [facility] Sodium Chloride (Normal Saline) 1,000 mls @ 999 mls/hr IV .Bolus ONE Stop: 07/04/20 21:50 Last Admin: 07/04/20 21:03 Dose: 999 mls/hr Documented by: Sodium Chloride (Normal Saline) 1,000 mls @ 100 mls/hr IV CONTINUOUS ONE Stop: 07/06/20 05:21 Last Admin: 07/05/20 20:44 Dose: 100 mls/hr Documented by: Sodium Chloride (Normal Saline) Confirm Administered Dose 20 mls @ as directed .ROUTE .STK-MED ONE Stop: 07/06/20 06:59 Sodium Chloride (Normal Saline) Confirm Administered Dose 20 mls @ as directed .ROUTE .STK-MED ONE Stop: 07/06/20 07:57 Sodium Chloride (Normal Saline) Confirm Administered Dose 20 mls @ as directed .ROUTE .STK-MED ONE Stop: 07/06/20 11:24 Cefazolin Sodium/Dextrose 2 gm (/ Premix) 50 mls @ 100 mls/hr IV Q8H [facility] Stop: 07/07/20 04:29 Last Admin: 07/07/20 03:32 Dose: 100 mls/hr Documented by: Acetaminophen (Ofirmev 1000 Mg/100 Ml) Confirm Administered Dose 100 mls @ as directed .ROUTE .STK-MED ONE Stop: 07/06/20 13:41 Sodium Chloride (Normal Saline) 1,000 mls @ 75 mls/hr IV ASDIRECTED [facility] Stop: 07/07/20 16:00 Sodium Chloride (Normal Saline) 1,000 mls @ 75 mls/hr IV ONETIME ONE Stop: 07/07/20 22:25 Last Admin: 07/07/20 10:28 Dose: 75 mls/hr Documented by: Sodium Chloride (Normal Saline) 500 mls @ 100 mls/hr IV ONETIME ONE Stop: 07/08/20 16:42 Last Admin: 07/08/20 12:08 Dose: 100 mls/hr Documented by: Ibuprofen (Ibuprofen 600 Mg Tab) 600 mg PO ONETIME ONE Stop: 07/04/20 19:07 Last Admin: 07/04/20 19:22 Dose: 600 mg Documented by: Ibuprofen (Ibuprofen 400 Mg Tab) 400 mg PO Q4H PRN PRN Reason: Pain Last Admin: 07/08/20 09:54 Dose: 400 mg Documented by: Insulin Glargine (Insulin Glargine,Human Rec. Analog 100 Units/Ml 3 Ml Pen) 22 units SUBCUT ONETIME ONE Stop: 07/05/20 11:31 Last Admin: 07/05/20 11:18 Dose: 22 units Documented by: Insulin Glargine (Insulin Glargine,Human Rec. Analog 100 Units/Ml 3 Ml Pen) 11 units SUBCUT ONETIME ONE Stop: 07/06/20 05:01 Last Admin: 07/06/20 04:54 Dose: 11 units Documented by: Insulin Glargine (Insulin Glargine,Human Rec. Analog 100 Units/Ml 3 Ml Pen) 7 units SUBCUT BEDTIME [facility] Last Admin: 07/05/20 20:48 Dose: 7 units Documented by: Insulin Human Regular (Insulin Regular, Human 100 Units/Ml 10 Ml Vial) Confirm Administered Dose 1,000 unit .ROUTE .STK-MED ONE Stop: 07/06/20 07:36 Ketamine HCl (Ketamine 500 Mg/10 Ml Mdv) Confirm Administered Dose 500 mg .ROUTE .STK-MED ONE Stop: 07/06/20 08:01 Ketorolac Tromethamine (Ketorolac 30 Mg/Ml Sdv) Confirm Administered Dose 30 mg .ROUTE .STK-MED ONE Stop: 07/06/20 07:01 Lidocaine (Lidocaine 2% 5 Ml Sdv) Confirm Administered Dose 5 ml .ROUTE .STK-MED ONE Stop: 07/06/20 07:01 Losartan Potassium (Losartan 50 Mg Tab) 50 mg PO BID [facility] Midazolam HCl (Midazolam 1 Mg/Ml 2 Ml Sdv) Confirm Administered Dose 2 mg .ROUTE .STK-MED ONE Stop: 07/06/20 07:03 Midazolam HCl (Midazolam 1 Mg/Ml 2 Ml Sdv) Confirm Administered Dose 2 mg .ROUTE .STK-MED ONE Stop: 07/06/20 07:03 Ondansetron HCl (Ondansetron 4 Mg/2 Ml Sdv) Confirm Administered Dose 4 mg .ROUTE .STK-MED ONE Stop: 07/06/20 07:01 Oxycodone HCl (Oxycodone 5 Mg Tab) 5 mg PO Q4H PRN PRN Reason: Pain (moderate 4-6) Last Admin: 07/06/20 04:53 Dose: 5 mg Documented by: Phenylephrine HCl (Phenylephrine 1% 10 Mg/Ml Sdv) Confirm Administered Dose 10 mg .ROUTE .STK-MED ONE Stop: 07/06/20 06:40 Propofol (Propofol 200 Mg/20 Ml Sdv) Confirm Administered Dose 200 mg .ROUTE .STK-MED ONE Stop: 07/06/20 07:03 Rocuronium [place] (Rocuronium [place] 50 Mg/5 Ml Syringe) Confirm Administered Dose 50 mg .ROUTE .STK-MED ONE Stop: 07/06/20 07:01 Rocuronium [place] (Rocuronium [place] 50 Mg/5 Ml Syringe) Confirm Administered Dose 50 mg .ROUTE .STK-MED ONE Stop: 07/06/20 10:28 Sugammadex Sodium (Sugammadex Sodium 200 Mg/2 Ml Vial) Confirm Administered Dose 200 mg .ROUTE .STK-MED ONE Stop: 07/06/20 08:53 Tranexamic Acid (Tranexamic Acid 1,000 Mg/10 Ml Amp) Confirm Administered Dose 1,000 mg .ROUTE .STK-MED ONE Stop: 07/06/20 09:40 - Exam Urinary Catheter Total Time: 3Days 23Hours General: Alert, Oriented Neck: Supple Lungs: Clear to Auscultation, Normal Respiratory Effort Cardiovascular: Regular Rate, Regular Rhythm GI/Abdominal Exam: Normal Bowel Sounds, Soft, Non-Tender, No Distention Extremities: No Pedal Edema Skin: Warm, Dry, Intact Neurological: No New Focal Deficit - Patient Data Lab Results Last 24 hrs: Laboratory Results - last 24 hr 07/08/20 07/08/20 07/09/20 Range/Units 16:54 21:50 05:10 WBC 4.67 (4.0-11.0) K/uL RBC 3.00 L (4.30-5.90) M/uL Hgb 9.5 L (12.0-16.0) g/dL Hct 28.7 L (36.0-46.0) % MCV 95.7 (80.0-98.0) fL MCH 31.7 (27.0-32.0) pg MCHC 33.1 (31.0-37.0) g/dL RDW Std Deviation 52.3 (28.0-62.0) fl RDW Coeff of Grace 15 (11.0-15.0) % Plt Count 125 L (150-400) K/uL MPV 11.70 (7.40-12.00) fL Neut % (Auto) 72.9 (48.0-80.0) % Lymph % (Auto) 11.3 L (16.0-40.0) % [place] % (Auto) 13.9 (0.0-15.0) % Eos % (Auto) 1.7 (0.0-7.0) % Baso % (Auto) 0.2 (0.0-1.5) % Neut # (Auto) 3.4 (1.4-5.7) K/uL Lymph # (Auto) 0.5 L (0.6-2.4) K/uL [place] # (Auto) 0.7 (0.0-0.8) K/uL Eos # (Auto) 0.1 (0.0-0.7) K/uL Baso # (Auto) 0.0 (0.0-0.1) K/uL Nucleated RBC % 0.0 /100WBC Nucleated RBCs # 0 K/uL Sodium (136-145) mmol/L Potassium (3.5-5.1) mmol/L Chloride (98-107) mmol/L Carbon Dioxide (21.0-32.0) mmol/L BUN (7.0-18.0) mg/dL Creatinine (0.6-1.0) mg/dL Est Cr Clr Drug Dosing mL/min Estimated GFR (MDRD) ml/min Glucose (74-106) mg/dL POC Glucose 304 H 318 H (70-99) mg/dL Calcium (8.5-10.1) mg/dL 07/09/20 07/09/20 07/09/20 Range/Units 05:10 07:17 11:21 WBC (4.0-11.0) K/uL RBC (4.30-5.90) M/uL Hgb (12.0-16.0) g/dL Hct (36.0-46.0) % MCV (80.0-98.0) fL MCH (27.0-32.0) pg MCHC (31.0-37.0) g/dL RDW Std Deviation (28.0-62.0) fl RDW Coeff of Grace (11.0-15.0) % Plt Count (150-400) K/uL MPV (7.40-12.00) fL Neut % (Auto) (48.0-80.0) % Lymph % (Auto) (16.0-40.0) % Jefferson % (Auto) (0.0-15.0) % Eos % (Auto) (0.0-7.0) % Baso % (Auto) (0.0-1.5) % Neut # (Auto) (1.4-5.7) K/uL Lymph # (Auto) (0.6-2.4) K/uL [place] # (Auto) (0.0-0.8) K/uL Eos # (Auto) (0.0-0.7) K/uL Baso # (Auto) (0.0-0.1) K/uL Nucleated RBC % /100WBC Nucleated RBCs # K/uL Sodium 130 L (136-145) mmol/L Potassium 4.5 (3.5-5.1) mmol/L Chloride 98 (98-107) mmol/L Carbon Dioxide 23.3 (21.0-32.0) mmol/L BUN 38 H (7.0-18.0) mg/dL Creatinine 1.1 H (0.6-1.0) mg/dL Est Cr Clr Drug Dosing 34.18 mL/min Estimated GFR (MDRD) 49.1 ml/min Glucose 361 H (74-106) mg/dL POC Glucose 345 H 344 H (70-99) mg/dL Calcium 7.0 L (8.5-10.1) mg/dL Result Diagrams: 07/09/20 05:10 07/09/20 05:10 Sepsis Event Note - Evaluation Sepsis Screening Result: No Definite Risk - Focused Exam Vital Signs: Vital Signs Temp Pulse Pulse Resp BP BP BP 07/09/20 12:10 36.5 C 59 L 16 102/40 L 07/09/20 11:35 37.2 C 58 L 14 135/58 L 148/54 H 07/09/20 08:11 36.6 C 67 15 137/60 07/09/20 08:08 137/60 07/09/20 08:05 65 137/60 07/09/20 04:00 37.1 C 70 17 140/63 Pulse Ox 07/09/20 12:10 93 L 07/09/20 11:35 95 07/09/20 08:11 95 07/09/20 08:08 07/09/20 08:05 07/09/20 04:00 94 L - Problem List Review Problem List Initiated/Reviewed/Updated: Yes - My Orders Last 24 Hours: My Active Orders 07/09/20 07:30 Communication Order [RC] PER UNIT ROUTINE - Plan Plan:: 69 yo female admitted for left humeral fracture and right hip fracture 1. Left humeral fracture/right hip fracture status post orthopedic repair: continue pain control, physical therapy, will likely need SNF placement 2. GIANNI: resolving creatinine 1.1 3. Hyperglycemia/ type II diabetic: ssi, Lantus BID, diabetic diet. 4. ASA for DVT prophylaxis
--- NOTE | 2020-07-09 15:20 | PCM.SN.2 ---
- Free Text/Narrative Note: Ortho Note POD#3 ORIF right femoral neck fracture and ORIF left segmental humerus shaft fracture Pain managed PT able to stand patient at bedside Plan: WBAT right LE, non weight bearing left upper extremity for 8 weeks, bed to chair transfer likely all patient will be able to do without weight bearing on left UE Aspirin EC 325 mg daily for 90 days Follow up with MARISA Salazar, in 3 weeks for wound checks. Do NOT remove hawa or sutures in in swing bed Orthopaedically stable, discharge to swing bed when able Please call with questions
[2020-07-09] MEDS: Morphine 2 MG/ML SYRINGE IVPUSH PRN (19:58)
[2020-07-09] MEDS: Omeprazole 20 MG Cap.CR PO SCH (20:31)
[2020-07-10] MEDS: oxyCODONE 5 MG Tab PO PRN ×2 (00:37→10:58)
[2020-07-10] MEDS: Acetaminophen 325 MG Tab PO SCH ×4 (03:00→20:52)
[2020-07-10 06:24] LABS: CARBON DIOXIDE,CO2 25.2 mmol/L (21.0-32.0); POTASSIUM,K 4.4 mmol/L (3.5-5.1)
[2020-07-10] MEDS: Losartan 50 MG Tab PO SCH ×2 (08:06→20:54)
[2020-07-10] MEDS: Famotidine 20 MG Tab PO SCH (08:10)
[2020-07-10] MEDS: atorvaSTATin 40 MG Tab PO SCH (08:10)
[2020-07-10] MEDS: Docusate Sodium 100 MG Cap PO SCH ×2 (08:10→20:52)
[2020-07-10] MEDS: Carvedilol 25 MG Tab PO SCH ×2 (08:11→20:54)
[2020-07-10] MEDS: Levothyroxine 75 MCG Tab PO SCH (08:17)
[2020-07-10] MEDS: Insulin Glargine,Human Rec. Analog 100 Units/ML 3 ML Pen SUBCUT SCH ×2 (08:18→20:48)
[2020-07-10] MEDS: Polyethylene Glycol 3350 Powder 17 GM Packet PO SCH (08:19)
[2020-07-10] MEDS: Insulin Aspart 100 Units/ML 3 ML Pen SUBCUT SCH ×3 (08:19→17:42)
[2020-07-10] MEDS: Aspirin 325 MG Tab PO SCH (08:20)
--- NOTE | 2020-07-10 12:19 | PCM.PN ---
- General Info Date of Service: 07/10/20 - Review of Systems Systems Review Comment:: pain controlled - Patient Data Vitals - Most Recent: Last Vital Signs Temp 37.2 C 07/10/20 08:29 Pulse 63 07/10/20 08:29 Resp 18 07/10/20 08:29 BP 154/56 H 07/10/20 08:29 Pulse Ox 93 L 07/10/20 05:00 Weight - Most Recent: 91.5 kg I&O - Last 24 Hours: Intake & Output 07/09/20 07/10/20 07/10/20 22:59 06:59 14:59 Intake Total 825 600 Output Total 550 325 Balance 275 275 Lab Results Last 24 Hours: Laboratory Results - last 24 hr 07/06/20 07/09/20 07/09/20 Range/Units 07:28 17:26 20:36 WBC (4.0-11.0) K/uL RBC (4.30-5.90) M/uL Hgb (12.0-16.0) g/dL Hct (36.0-46.0) % MCV (80.0-98.0) fL MCH (27.0-32.0) pg MCHC (31.0-37.0) g/dL RDW Std Deviation (28.0-62.0) fl RDW Coeff of Grace (11.0-15.0) % Plt Count (150-400) K/uL MPV (7.40-12.00) fL Neut % (Auto) (48.0-80.0) % Lymph % (Auto) (16.0-40.0) % Milam % (Auto) (0.0-15.0) % Eos % (Auto) (0.0-7.0) % Baso % (Auto) (0.0-1.5) % Neut # (Auto) (1.4-5.7) K/uL Lymph # (Auto) (0.6-2.4) K/uL Milam # (Auto) (0.0-0.8) K/uL Eos # (Auto) (0.0-0.7) K/uL Baso # (Auto) (0.0-0.1) K/uL Nucleated RBC % /100WBC Nucleated RBCs # K/uL Sodium (136-145) mmol/L Potassium (3.5-5.1) mmol/L Chloride (98-107) mmol/L Carbon Dioxide (21.0-32.0) mmol/L BUN (7.0-18.0) mg/dL Creatinine (0.6-1.0) mg/dL Est Cr Clr Drug Dosing mL/min Estimated GFR (MDRD) ml/min Glucose (74-106) mg/dL POC Glucose 301 H 253 H (70-99) mg/dL Calcium (8.5-10.1) mg/dL Crossmatch See Detail 07/10/20 07/10/20 07/10/20 Range/Units 05:15 05:15 06:46 WBC 4.32 (4.0-11.0) K/uL RBC 2.97 L (4.30-5.90) M/uL Hgb 9.3 L (12.0-16.0) g/dL Hct 28.4 L (36.0-46.0) % MCV 95.6 (80.0-98.0) fL MCH 31.3 (27.0-32.0) pg MCHC 32.7 (31.0-37.0) g/dL RDW Std Deviation 52.8 (28.0-62.0) fl RDW Coeff of Grace 15 (11.0-15.0) % Plt Count 144 L (150-400) K/uL MPV 11.30 (7.40-12.00) fL Neut % (Auto) 64.6 (48.0-80.0) % Lymph % (Auto) 15.5 L (16.0-40.0) % Milam % (Auto) 16.4 H (0.0-15.0) % Eos % (Auto) 3.5 (0.0-7.0) % Baso % (Auto) 0.0 (0.0-1.5) % Neut # (Auto) 2.8 (1.4-5.7) K/uL Lymph # (Auto) 0.7 (0.6-2.4) K/uL Milam # (Auto) 0.7 (0.0-0.8) K/uL Eos # (Auto) 0.2 (0.0-0.7) K/uL Baso # (Auto) 0.0 (0.0-0.1) K/uL Nucleated RBC % 0.0 /100WBC Nucleated RBCs # 0 K/uL Sodium 134 L (136-145) mmol/L Potassium 4.4 (3.5-5.1) mmol/L Chloride 100 (98-107) mmol/L Carbon Dioxide 25.2 (21.0-32.0) mmol/L BUN 40 H (7.0-18.0) mg/dL Creatinine 1.2 H (0.6-1.0) mg/dL Est Cr Clr Drug Dosing 31.33 mL/min Estimated GFR (MDRD) 44.4 ml/min Glucose 299 H (74-106) mg/dL POC Glucose 289 H (70-99) mg/dL Calcium 7.1 L (8.5-10.1) mg/dL Crossmatch 07/10/20 Range/Units 11:28 WBC (4.0-11.0) K/uL RBC (4.30-5.90) M/uL Hgb (12.0-16.0) g/dL Hct (36.0-46.0) % MCV (80.0-98.0) fL MCH (27.0-32.0) pg MCHC (31.0-37.0) g/dL RDW Std Deviation (28.0-62.0) fl RDW Coeff of Grace (11.0-15.0) % Plt Count (150-400) K/uL MPV (7.40-12.00) fL Neut % (Auto) (48.0-80.0) % Lymph % (Auto) (16.0-40.0) % Milam % (Auto) (0.0-15.0) % Eos % (Auto) (0.0-7.0) % Baso % (Auto) (0.0-1.5) % Neut # (Auto) (1.4-5.7) K/uL Lymph # (Auto) (0.6-2.4) K/uL [place] # (Auto) (0.0-0.8) K/uL Eos # (Auto) (0.0-0.7) K/uL Baso # (Auto) (0.0-0.1) K/uL Nucleated RBC % /100WBC Nucleated RBCs # K/uL Sodium (136-145) mmol/L Potassium (3.5-5.1) mmol/L Chloride (98-107) mmol/L Carbon Dioxide (21.0-32.0) mmol/L BUN (7.0-18.0) mg/dL Creatinine (0.6-1.0) mg/dL Est Cr Clr Drug Dosing mL/min Estimated GFR (MDRD) ml/min Glucose (74-106) mg/dL POC Glucose 333 H (70-99) mg/dL Calcium (8.5-10.1) mg/dL Crossmatch Med Orders - Current: Current Medications Acetaminophen (Acetaminophen 325 Mg Tab) 650 mg PO Q6H [facility] Last Admin: 07/10/20 08:10 Dose: 650 mg Documented by: Al Hydroxide/Mg Hydroxide (Aluminum Hydroxide/Magnesium Hydroxide/Simethicone Susp 30 Ml Cup) 30 ml PO Q4H PRN PRN Reason: Indigestion Aspirin (Aspirin 325 Mg Tab) 325 mg PO DAILY [facility] Last Admin: 07/10/20 08:20 Dose: 325 mg Documented by: Atorvastatin Calcium (Atorvastatin 40 Mg Tab) 40 mg PO DAILY [facility] Last Admin: 07/10/20 08:10 Dose: 40 mg Documented by: Bisacodyl (Bisacodyl 10 Mg Supp) 10 mg RECTAL DAILY PRN PRN Reason: Constipation Last Admin: 07/10/20 00:37 Dose: 10 mg Documented by: Carvedilol (Carvedilol 25 Mg Tab) 25 mg PO BID [facility] Last Admin: 07/10/20 08:11 Dose: 25 mg Documented by: Dextrose/Water (50% Dextrose In Water 50 Ml Syringe) 50 ml IV ASDIRECTED PRN PRN Reason: Hypoglycemia Diphenhydramine HCl (Diphenhydramine 25 Mg Cap) 25 - 50 mg PO Q6H PRN PRN Reason: Itching Docusate Sodium (Docusate Sodium 100 Mg Cap) 100 mg PO Q12HR [facility] Last Admin: 07/10/20 08:10 Dose: 100 mg Documented by: Famotidine (Famotidine 20 Mg Tab) 40 mg PO DAILY [facility] Last Admin: 07/10/20 08:10 Dose: 40 mg Documented by: Glucagon (Glucagon,Human Recombinant 1 Mg Vial) 1 mg IM ASDIRECTED PRN PRN Reason: Hypoglycemia Hydralazine HCl (Hydralazine 20 Mg/Ml Sdv) 5 mg IVPUSH Q15M PRN PRN Reason: Hypertension Last Admin: 07/06/20 14:20 Dose: 5 mg Documented by: Cefazolin Sodium/Dextrose 2 gm (/ Premix) 50 mls @ 100 mls/hr IV ONCALL [facility] Last Admin: 07/06/20 19:54 Dose: 100 mls/hr Documented by: Acetaminophen 1,000 mg/ Premix 100 mls @ 400 mls/hr IV Q6H PRN PRN Reason: Pain Last Admin: 07/06/20 13:47 Dose: 400 mls/hr Documented by: Sodium Chloride (Normal Saline) 500 mls @ 999 mls/hr IV STAT [facility] Last Admin: 07/07/20 09:03 Dose: 999 mls/hr Documented by: Insulin Aspart (Insulin Aspart 100 Units/Ml 3 Ml Pen) 0 unit SUBCUT TIDAC [facility]; Protocol Last Admin: 07/10/20 11:30 Dose: 12 unit Documented by: Insulin Glargine (Insulin Glargine,Human Rec. Analog 100 Units/Ml 3 Ml Pen) 14 units SUBCUT BEDTIME [facility] Last Admin: 07/09/20 20:35 Dose: 14 units Documented by: Insulin Glargine (Insulin Glargine,Human Rec. Analog 100 Units/Ml 3 Ml Pen) 22 units SUBCUT DAILY [facility] Last Admin: 07/10/20 08:18 Dose: 22 units Documented by: Levothyroxine Sodium (Levothyroxine 75 Mcg Tab) 75 mcg PO ACBRK [facility] Last Admin: 07/10/20 08:17 Dose: 75 mcg Documented by: Losartan Potassium (Losartan 50 Mg Tab) 50 mg PO BID [facility] Last Admin: 07/10/20 08:06 Dose: 50 mg Documented by: Morphine Sulfate (Morphine 2 Mg/Ml Syringe) 1 - 2 mg IVPUSH Q3H PRN PRN Reason: Pain Last Admin: 07/09/20 19:58 Dose: 2 mg Documented by: Omeprazole (Omeprazole 20 Mg Cap.Cr) 20 mg PO BEDTIME [facility] Last Admin: 07/09/20 20:31 Dose: 20 mg Documented by: Ondansetron HCl (Ondansetron 4 Mg Tab.Dis) 4 mg PO Q6H PRN PRN Reason: nausea, able to take PO Ondansetron HCl (Ondansetron 4 Mg/2 Ml Sdv) 4 mg IVPUSH Q6H PRN PRN Reason: Nausea/Vomiting Oxycodone HCl (Oxycodone 5 Mg Tab) 5 - 10 mg PO Q4H PRN PRN Reason: Pain Last Admin: 07/10/20 10:58 Dose: 10 mg Documented by: Polyethylene Glycol (Polyethylene Glycol 3350 Powder 17 Gm Packet) 17 gm PO DAILY [facility] Last Admin: 07/10/20 08:19 Dose: 17 gm Documented by: Discontinued Medications Bupivacaine HCl (Bupivacaine 0.5% 30 Ml Sdv) Confirm Administered Dose 30 ml .ROUTE .STK-MED ONE Stop: 07/06/20 06:57 Cefazolin Sodium (Cefazolin 1 Gm Vial) Confirm Administered Dose 2 gm .ROUTE .STK-MED ONE Stop: 07/06/20 07:57 Cefazolin Sodium (Cefazolin 1 Gm Vial) Confirm Administered Dose 2 gm .ROUTE .STK-MED ONE Stop: 07/06/20 11:24 Dextrose/Water (50% Dextrose In Water 50 Ml Syringe) 50 ml IV ASDIRECTED PRN PRN Reason: Hypoglycemia Fentanyl (Fentanyl 100 Mcg/2 Ml Sdv) Confirm Administered Dose 100 mcg .ROUTE .STK-MED ONE Stop: 07/06/20 07:04 Fentanyl (Fentanyl 250 Mcg/5 Ml Sdv) Confirm Administered Dose 250 mcg .ROUTE .STK-MED ONE Stop: 07/06/20 07:59 Fentanyl (Fentanyl 100 Mcg/2 Ml Sdv) 50 mcg IVPUSH Q5M PRN PRN Reason: Pain Last Admin: 07/06/20 14:41 Dose: 50 mcg Documented by: Glucagon (Glucagon,Human Recombinant 1 Mg Vial) 1 mg IM ASDIRECTED PRN PRN Reason: Hypoglycemia Glycopyrrolate (Glycopyrrolate 0.2 Mg/Ml Sdv) Confirm Administered Dose 0.2 mg .ROUTE .STK-MED ONE Stop: 07/06/20 07:01 Heparin Sodium (Porcine) (Heparin Sodium 5,000 Units/Ml Vial) 5,000 units SUBCUT Q8H [facility] Stop: 07/05/20 17:00 Last Admin: 07/05/20 11:20 Dose: 5,000 units Documented by: Hydralazine HCl (Hydralazine 20 Mg/Ml Sdv) Confirm Administered Dose 20 mg .ROUTE .STK-MED ONE Stop: 07/06/20 14:18 Last Admin: 07/06/20 15:26 Dose: Not Given Documented by: Hydrochlorothiazide (Hydrochlorothiazide 25 Mg Tab) 25 mg PO DAILY [facility] Sodium Chloride (Normal Saline) 1,000 mls @ 999 mls/hr IV .Bolus ONE Stop: 07/04/20 21:50 Last Admin: 07/04/20 21:03 Dose: 999 mls/hr Documented by: Sodium Chloride (Normal Saline) 1,000 mls @ 100 mls/hr IV CONTINUOUS ONE Stop: 07/06/20 05:21 Last Admin: 07/05/20 20:44 Dose: 100 mls/hr Documented by: Sodium Chloride (Normal Saline) Confirm Administered Dose 20 mls @ as directed .ROUTE .STK-MED ONE Stop: 07/06/20 06:59 Sodium Chloride (Normal Saline) Confirm Administered Dose 20 mls @ as directed .ROUTE .STK-MED ONE Stop: 07/06/20 07:57 Sodium Chloride (Normal Saline) Confirm Administered Dose 20 mls @ as directed .ROUTE .STK-MED ONE Stop: 07/06/20 11:24 Cefazolin Sodium/Dextrose 2 gm (/ Premix) 50 mls @ 100 mls/hr IV Q8H [facility] Stop: 07/07/20 04:29 Last Admin: 07/07/20 03:32 Dose: 100 mls/hr Documented by: Acetaminophen (Ofirmev 1000 Mg/100 Ml) Confirm Administered Dose 100 mls @ as directed .ROUTE .STK-MED ONE Stop: 07/06/20 13:41 Sodium Chloride (Normal Saline) 1,000 mls @ 75 mls/hr IV ASDIRECTED [facility] Stop: 07/07/20 16:00 Sodium Chloride (Normal Saline) 1,000 mls @ 75 mls/hr IV ONETIME ONE Stop: 07/07/20 22:25 Last Admin: 07/07/20 10:28 Dose: 75 mls/hr Documented by: Sodium Chloride (Normal Saline) 500 mls @ 100 mls/hr IV ONETIME ONE Stop: 07/08/20 16:42 Last Admin: 07/08/20 12:08 Dose: 100 mls/hr Documented by: Ibuprofen (Ibuprofen 600 Mg Tab) 600 mg PO ONETIME ONE Stop: 07/04/20 19:07 Last Admin: 07/04/20 19:22 Dose: 600 mg Documented by: Ibuprofen (Ibuprofen 400 Mg Tab) 400 mg PO Q4H PRN PRN Reason: Pain Last Admin: 07/08/20 09:54 Dose: 400 mg Documented by: Insulin Glargine (Insulin Glargine,Human Rec. Analog 100 Units/Ml 3 Ml Pen) 22 units SUBCUT ONETIME ONE Stop: 07/05/20 11:31 Last Admin: 07/05/20 11:18 Dose: 22 units Documented by: Insulin Glargine (Insulin Glargine,Human Rec. Analog 100 Units/Ml 3 Ml Pen) 11 units SUBCUT ONETIME ONE Stop: 07/06/20 05:01 Last Admin: 07/06/20 04:54 Dose: 11 units Documented by: Insulin Glargine (Insulin Glargine,Human Rec. Analog 100 Units/Ml 3 Ml Pen) 7 units SUBCUT BEDTIME [facility] Last Admin: 07/05/20 20:48 Dose: 7 units Documented by: Insulin Human Regular (Insulin Regular, Human 100 Units/Ml 10 Ml Vial) Confirm Administered Dose 1,000 unit .ROUTE .STK-MED ONE Stop: 07/06/20 07:36 Ketamine HCl (Ketamine 500 Mg/10 Ml Mdv) Confirm Administered Dose 500 mg .ROUTE .STK-MED ONE Stop: 07/06/20 08:01 Ketorolac Tromethamine (Ketorolac 30 Mg/Ml Sdv) Confirm Administered Dose 30 mg .ROUTE .STK-MED ONE Stop: 07/06/20 07:01 Lidocaine (Lidocaine 2% 5 Ml Sdv) Confirm Administered Dose 5 ml .ROUTE .STK-MED ONE Stop: 07/06/20 07:01 Losartan Potassium (Losartan 50 Mg Tab) 50 mg PO BID [facility] Midazolam HCl (Midazolam 1 Mg/Ml 2 Ml Sdv) Confirm Administered Dose 2 mg .ROUTE .STK-MED ONE Stop: 07/06/20 07:03 Midazolam HCl (Midazolam 1 Mg/Ml 2 Ml Sdv) Confirm Administered Dose 2 mg .ROUTE .STK-MED ONE Stop: 07/06/20 07:03 Ondansetron HCl (Ondansetron 4 Mg/2 Ml Sdv) Confirm Administered Dose 4 mg .ROUTE .STK-MED ONE Stop: 07/06/20 07:01 Oxycodone HCl (Oxycodone 5 Mg Tab) 5 mg PO Q4H PRN PRN Reason: Pain (moderate 4-6) Last Admin: 07/06/20 04:53 Dose: 5 mg Documented by: Phenylephrine HCl (Phenylephrine 1% 10 Mg/Ml Sdv) Confirm Administered Dose 10 mg .ROUTE .STK-MED ONE Stop: 07/06/20 06:40 Propofol (Propofol 200 Mg/20 Ml Sdv) Confirm Administered Dose 200 mg .ROUTE .STK-MED ONE Stop: 07/06/20 07:03 Rocuronium [place] (Rocuronium [place] 50 Mg/5 Ml Syringe) Confirm Administered Dose 50 mg .ROUTE .STK-MED ONE Stop: 07/06/20 07:01 Rocuronium [place] (Rocuronium [place] 50 Mg/5 Ml Syringe) Confirm Administered Dose 50 mg .ROUTE .[place]-MED ONE Stop: 07/06/20 10:28 Sugammadex Sodium (Sugammadex Sodium 200 Mg/2 Ml Vial) Confirm Administered Dose 200 mg .ROUTE .[place]-MED ONE Stop: 07/06/20 08:53 Tranexamic Acid (Tranexamic Acid 1,000 Mg/10 Ml Amp) Confirm Administered Dose 1,000 mg .ROUTE .[place]-MED ONE Stop: 07/06/20 09:40 - Exam Urinary Catheter Total Time: 3Days 23Hours General: Alert, Oriented HEENT: Mucous Membr. Moist/[place] Neck: Supple Lungs: Clear to Auscultation, Normal Respiratory Effort Cardiovascular: Regular Rate, Regular Rhythm Neurological: No New Focal Deficit - Patient Data Lab Results Last 24 hrs: Laboratory Results - last 24 hr 07/06/20 07/09/20 07/09/20 Range/Units 07:28 17:26 20:36 WBC (4.0-11.0) K/uL RBC (4.30-5.90) M/uL Hgb (12.0-16.0) g/dL Hct (36.0-46.0) % MCV (80.0-98.0) fL MCH (27.0-32.0) pg MCHC (31.0-37.0) g/dL RDW Std Deviation (28.0-62.0) fl RDW Coeff of Grace (11.0-15.0) % Plt Count (150-400) K/uL MPV (7.40-12.00) fL Neut % (Auto) (48.0-80.0) % Lymph % (Auto) (16.0-40.0) % Milam % (Auto) (0.0-15.0) % Eos % (Auto) (0.0-7.0) % Baso % (Auto) (0.0-1.5) % Neut # (Auto) (1.4-5.7) K/uL Lymph # (Auto) (0.6-2.4) K/uL Milam # (Auto) (0.0-0.8) K/uL Eos # (Auto) (0.0-0.7) K/uL Baso # (Auto) (0.0-0.1) K/uL Nucleated RBC % /100WBC Nucleated RBCs # K/uL Sodium (136-145) mmol/L Potassium (3.5-5.1) mmol/L Chloride (98-107) mmol/L Carbon Dioxide (21.0-32.0) mmol/L BUN (7.0-18.0) mg/dL Creatinine (0.6-1.0) mg/dL Est Cr Clr Drug Dosing mL/min Estimated GFR (MDRD) ml/min Glucose (74-106) mg/dL POC Glucose 301 H 253 H (70-99) mg/dL Calcium (8.5-10.1) mg/dL Crossmatch See Detail 07/10/20 07/10/20 07/10/20 Range/Units 05:15 05:15 06:46 WBC 4.32 (4.0-11.0) K/uL RBC 2.97 L (4.30-5.90) M/uL Hgb 9.3 L (12.0-16.0) g/dL Hct 28.4 L (36.0-46.0) % MCV 95.6 (80.0-98.0) fL MCH 31.3 (27.0-32.0) pg MCHC 32.7 (31.0-37.0) g/dL RDW Std Deviation 52.8 (28.0-62.0) fl RDW Coeff of Grace 15 (11.0-15.0) % Plt Count 144 L (150-400) K/uL MPV 11.30 (7.40-12.00) fL Neut % (Auto) 64.6 (48.0-80.0) % Lymph % (Auto) 15.5 L (16.0-40.0) % Milam % (Auto) 16.4 H (0.0-15.0) % Eos % (Auto) 3.5 (0.0-7.0) % Baso % (Auto) 0.0 (0.0-1.5) % Neut # (Auto) 2.8 (1.4-5.7) K/uL Lymph # (Auto) 0.7 (0.6-2.4) K/uL Milam # (Auto) 0.7 (0.0-0.8) K/uL Eos # (Auto) 0.2 (0.0-0.7) K/uL Baso # (Auto) 0.0 (0.0-0.1) K/uL Nucleated RBC % 0.0 /100WBC Nucleated RBCs # 0 K/uL Sodium 134 L (136-145) mmol/L Potassium 4.4 (3.5-5.1) mmol/L Chloride 100 (98-107) mmol/L Carbon Dioxide 25.2 (21.0-32.0) mmol/L BUN 40 H (7.0-18.0) mg/dL Creatinine 1.2 H (0.6-1.0) mg/dL Est Cr Clr Drug Dosing 31.33 mL/min Estimated GFR (MDRD) 44.4 ml/min Glucose 299 H (74-106) mg/dL POC Glucose 289 H (70-99) mg/dL Calcium 7.1 L (8.5-10.1) mg/dL Crossmatch 07/10/20 Range/Units 11:28 WBC (4.0-11.0) K/uL RBC (4.30-5.90) M/uL Hgb (12.0-16.0) g/dL Hct (36.0-46.0) % MCV (80.0-98.0) fL MCH (27.0-32.0) pg MCHC (31.0-37.0) g/dL RDW Std Deviation (28.0-62.0) fl RDW Coeff of Grace (11.0-15.0) % Plt Count (150-400) K/uL MPV (7.40-12.00) fL Neut % (Auto) (48.0-80.0) % Lymph % (Auto) (16.0-40.0) % Milam % (Auto) (0.0-15.0) % Eos % (Auto) (0.0-7.0) % Baso % (Auto) (0.0-1.5) % Neut # (Auto) (1.4-5.7) K/uL Lymph # (Auto) (0.6-2.4) K/uL [place] # (Auto) (0.0-0.8) K/uL Eos # (Auto) (0.0-0.7) K/uL Baso # (Auto) (0.0-0.1) K/uL Nucleated RBC % /100WBC Nucleated RBCs # K/uL Sodium (136-145) mmol/L Potassium (3.5-5.1) mmol/L Chloride (98-107) mmol/L Carbon Dioxide (21.0-32.0) mmol/L BUN (7.0-18.0) mg/dL Creatinine (0.6-1.0) mg/dL Est Cr Clr Drug Dosing mL/min Estimated GFR (MDRD) ml/min Glucose (74-106) mg/dL POC Glucose 333 H (70-99) mg/dL Calcium (8.5-10.1) mg/dL Crossmatch Result Diagrams: 07/10/20 05:15 07/10/20 05:15 Sepsis Event Note - Evaluation Sepsis Screening Result: No Definite Risk - Focused Exam Vital Signs: Vital Signs Temp Temp Pulse Pulse Resp BP BP 07/10/20 08:29 37.2 C 63 18 154/56 H 07/10/20 08:11 64 154/56 H 07/10/20 08:10 37.2 C 07/10/20 08:06 154/56 H 07/10/20 05:00 36.6 C 65 19 140/61 Pulse Ox 07/10/20 08:29 07/10/20 08:11 07/10/20 08:10 07/10/20 08:06 07/10/20 05:00 93 L - Problem List Review Problem List Initiated/Reviewed/Updated: Yes - My Orders Last 24 Hours: My Active Orders 07/11/20 05:11 BASIC METABOLIC PANEL,BMP [CHEM] AM CBC WITH AUTO DIFF [HEME] AM - Plan Plan:: 69 yo female admitted for left humeral fracture and right hip fracture 1. Left humeral fracture/right hip fracture status post orthopedic repair: con tinue pain control, physical therapy, will likely need SNF placement 2. GIANNI: resolving creatinine 1.2 3. Hyperglycemia/ type II diabetic: ssi, Lantus BID, diabetic diet. 4. ASA for DVT prophylaxis dispo: pending SNF placement
[2020-07-10] MEDS: Omeprazole 20 MG Cap.CR PO SCH (20:52)
[2020-07-11] MEDS: oxyCODONE 5 MG Tab PO PRN ×3 (01:32→12:51)
[2020-07-11] MEDS: Acetaminophen 325 MG Tab PO SCH ×2 (03:12→08:01)
[2020-07-11 05:58] LABS: CARBON DIOXIDE,CO2 26.2 mmol/L (21.0-32.0); POTASSIUM,K 4.5 mmol/L (3.5-5.1)
[2020-07-11] MEDS: Levothyroxine 75 MCG Tab PO SCH (07:03)
[2020-07-11] MEDS: Insulin Aspart 100 Units/ML 3 ML Pen SUBCUT SCH ×2 (07:27→11:30)
[2020-07-11] MEDS: Polyethylene Glycol 3350 Powder 17 GM Packet PO SCH (08:01)
[2020-07-11] MEDS: Aspirin 325 MG Tab PO SCH (08:01)
[2020-07-11] MEDS: Docusate Sodium 100 MG Cap PO SCH (08:01)
[2020-07-11] MEDS: atorvaSTATin 40 MG Tab PO SCH (08:02)
[2020-07-11] MEDS: Famotidine 20 MG Tab PO SCH (08:02)
[2020-07-11] MEDS: Carvedilol 25 MG Tab PO SCH (08:03)
[2020-07-11] MEDS: Insulin Glargine,Human Rec. Analog 100 Units/ML 3 ML Pen SUBCUT SCH (08:03)
[2020-07-11] MEDS: Losartan 50 MG Tab PO SCH (08:04)
--- NOTE | 2020-07-11 09:12 | PCM.DCSUM1 ---
<Lucille Barlow - Last Filed: 07/11/20 12:00> Discharge Summary - Hospital Course Free Text/Narrative:: Patient is a 69-year-old female with a significant past medical history of type 2 diabetes, hypertension, hypothyroidism: Presenting 07-04-2020 after experiencing a mechanical fall resulting in a left humeral and right hip fracture. Patient endorses walking into the gas station and tripping on some carpet falling forward and landing on her left arm. Mentions exquisite pain resulting in an EMS call; presented to the ED via EMS thereafter. ED course: Hip x-ray: Acute comminuted displaced fracture of the right femoral neck Humerus x-ray: Acute mildly displaced oblique fracture of the left proximal and mid humeral shaft Chest x-ray: No acute cardiopulmonary pathologies. Vitals: BP 168/79, pulse rate 68, 97 temperature, O2 sat 96%. Hospital course: Patient admitted on 07/04/2020 for a mechanical fall resulting in a left humerus spiral fracture and a right femoral fracture. Orthopedic intervention was scheduled for 07/06/2020 and pain was controlled with oxycodone's 5 mg every 4 as needed with ibuprofen. GIANNI which was noted on initial arrival which had resolved prior to procedure and patient was continued on half of her long- acting insulin prior to procedure. In light of her GIANNI her losartan and hydrochlorothiazide were held and patient 's blood pressure was otherwise acceptable for procedure. Procedure done without any significant issues. Catheter placed patient was status post right hip ORIF and left humeral ORIF and tolerated procedure well without any significant issues. Patient had a catheter placed and patient was continued on pain control with oxycodone/Tylenol. Following morning physical therapy did walk with the patient but patient was having significant issues with transferring from the bed to standing. Catheter was left in for an additional day to help assist patient with healing. Following day urinary catheter was removed and patient has been able to urinate on her own with using a bedpan. Patient home insulin regimen for long- acting/short acting insulin was restarted and patient's blood sugars and vitals otherwise were unremarkable. Day of discharge labs were also unremarkable ex cept for a mild hyponatremia of 134 which was consistent for the past couple of days (pseudohyponatremia) . Hyperglycemia also was improving but was still elevated with a blood glucose of 244. Per orthopedics recommendations. Patient will be continued on aspirin 325 daily x3 months, Pain control Tylenol and oxycodone Follow-up: PCP: Orthopedics: July 21, 2020 Due to significant pain with transfers patient was discharged to [facility] via ambulance. Patient was having significant issues being able to move and transferred from bed to sitting up on the right. Determined it was best to send patient via ambulance. - Discharge Data Discharge Date: 07/11/20 Discharge Disposition: DC/Tfer to SNF 03 Condition: Good - Referral to Home Health Primary Care Physician: Cathryn Do PA-C - Discharge Diagnosis/Problem(s) (1) Closed right hip fracture SNOMED Code(s): 069846222 ICD Code: S72.001A - FRACTURE OF UNSP PART OF NECK OF RIGHT FEMUR, INIT Status: Acute (2) Left humeral fracture SNOMED Code(s): 60461645 ICD Code: S42.302A - UNSP FRACTURE OF SHAFT OF HUMERUS, LEFT ARM, INIT Status: Acute (3) Diabetes SNOMED Code(s): 49583769 ICD Code: E11.9 - TYPE 2 DIABETES MELLITUS WITHOUT COMPLICATIONS Status: Acute (4) Hypertension SNOMED Code(s): 63359979 ICD Code: I10 - ESSENTIAL (PRIMARY) HYPERTENSION Status: Acute (5) Obesity SNOMED Code(s): 233931078, 400280184 ICD Code: E66.9 - OBESITY, UNSPECIFIED Status: Acute - Patient Summary/Data Operative Procedure(s) Performed: (1) Open reduction and internal fixation of right basicervical femoral neck fracture with [place] hip screw and derotation screw. (2) Open reduction and internal fixation of left segmental humerus shaft fracture with [place] 12 hole proximal humerus locking plate and lag screws Consults: Consultations 07/06/20 13:26 PT Evaluation and Treatment [CONS] Routine - Patient Instructions Diet, Other: ADA diet Activity: Apply Ice (polar care to left hip/thigh as much as allowable (may be off when up for meals) & ice pack to left arm 20 minutes QID), Cough & Deep Breathe, No Strenuous Activities Activity, Other: Weight Bearing as Tolerates right leg. NWB left arm. Driving: Do Not Drive Showering/Bathing: No Tub Bathing/Swimming, May Shower in 3 Days Wound/Incision Care: Keep Operative Site/Wound Site Clean and Dry, Change Dressing Daily Notify Provider of: Fever, Increased Pain, Swelling and Redness, Drainage Other/Special Instructions: DVT prophylaxis : Enteric Coated ASPIRIN 325mg daily for 3 months. Surgical dressings may be removed Saturday, then changed daily and as needed. Cover incisions daily with clean bandage. May shower, but no tub bathing. WEIGHT BEARING TOLERATES right leg. May utilize PAL lift for PIVOT TRANSFERS ONLY, as is NONWEIGHT BEARING to left arm, which makes it difficult to use walker to transfer. Follow up appointment with Jennifer HOGAN in 3 weeks to assess incisions and removal of hawa and retention sutures to right hip. Pain Control : routine TYLENOL 650mg QID and oxycodone prn - Discharge Plan *PRESCRIPTION DRUG MONITORING PROGRAM REVIEWED*: No *COPY OF PRESCRIPTION DRUG MONITORING REPORT IN PATIENT HELLEN: No Prescriptions/Med Rec: Aspirin 325 mg PO DAILY 30 Days #30 tablet Docusate Sodium [Colace] 100 mg PO Q12HR PRN 7 Days #14 cap PRN Reason: Constipation Famotidine [Pepcid] 40 mg PO DAILY 10 Days #10 tablet Home Medications: Home Meds Calcium Carbonate [Calcium] 600 mg PO DAILY 07/04/20 [History] Cholecalciferol (Vitamin D3) [Vitamin D3] 500 mg PO DAILY 07/04/20 [History] Insulin Aspart [NovoLOG] 0 - 18 unit SQ TIDMEALS 07/04/20 [History] Insulin Glarg,Human.Rec.Analog [Lantus] 14 units SQ BEDTIME 07/04/20 [History] Insulin Glarg,Human.Rec.Analog [Lantus] 22 unit SQ QAM 07/04/20 [History] Lansoprazole [Prevacid] 15 mg PO DAILY 07/04/20 [History] Levothyroxine Sodium [Synthroid] 75 mcg PO DAILY 07/04/20 [History] Losartan [Cozaar] 50 mg PO BID 07/04/20 [History] Lutein/Minerals/Vit A,C & E [Ocuvite] 1 tab PO DAILY 07/04/20 [History] Pioglitazone [Actos] 30 mg PO DAILY 07/04/20 [History] Risedronate Sodium 35 mg PO WEEKLY 07/04/20 [History] atorvaSTATin [Lipitor] 40 mg PO DAILY 07/04/20 [History] carvediloL [Carvedilol] 25 mg PO BID 07/04/20 [History] hydroCHLOROthiazide [Hydrochlorothiazide] 25 mg PO DAILY 07/04/20 [History] Acetaminophen [Tylenol] 650 mg PO Q6H PRN 10 Days #40 tablet 07/11/20 [Rx] Aspirin 325 mg PO DAILY 30 Days #30 tablet 07/11/20 [Rx] Docusate Sodium [Colace] 100 mg PO Q12HR PRN 7 Days #14 cap 07/11/20 [Rx] Famotidine [Pepcid] 40 mg PO DAILY 10 Days #10 tablet 07/11/20 [Rx] Insulin Glarg,Human.Rec.Analog [Lantus Solostar] 22 units SUBCUT DAILY pen 07/11/20 [Rx] Losartan [Cozaar] 50 mg PO BID tablet 07/11/20 [Rx] Omeprazole 20 mg PO BEDTIME cap.cr 07/11/20 [Rx] oxyCODONE 5 - 10 mg PO Q4H PRN tablet 07/11/20 [Rx] Patient Handouts: Hip Fracture Treated With ORIF, Care After, Famotidine tablets or gelcaps, Humerus Fracture Treated With ORIF, Humerus Fracture Treated With ORIF, Care After, Aspirin, ASA oral tablets, Hip Fracture Treated With ORIF, Docusate capsules Referrals: Cathryn Do PA-C [Primary Care Provider] - Jennifer Lea NP [Nurse Practitioner] - 07/21/20 1:00 pm - Discharge Summary/Plan Comment DC Time >30 min.: No - Patient Data Vitals - Most Recent: Last Vital Signs Temp 98.1 F 07/11/20 07:26 Pulse 64 07/11/20 08:03 Resp 18 07/11/20 07:26 BP 130/62 07/11/20 08:04 Pulse Ox 92 L 07/11/20 07:26 Weight - Most Recent: 91.5 kg I&O - Last 24 hours: Intake & Output 07/10/20 07/11/20 07/11/20 22:59 06:59 14:59 Intake Total 1150 550 Output Total 400 Balance 1150 150 Lab Results - Last 24 hrs: Laboratory Results - last 24 hr 05/07/10/20 07/10/20 Range/Units 11:28 16:57 20:47 WBC (4.0-11.0) K/uL RBC (4.30-5.90) M/uL Hgb (12.0-16.0) g/dL Hct (36.0-46.0) % MCV (80.0-98.0) fL MCH (27.0-32.0) pg MCHC (31.0-37.0) g/dL RDW Std Deviation (28.0-62.0) fl RDW Coeff of Grace (11.0-15.0) % Plt Count (150-400) K/uL MPV (7.40-12.00) fL Neut % (Auto) (48.0-80.0) % Lymph % (Auto) (16.0-40.0) % Frio % (Auto) (0.0-15.0) % Eos % (Auto) (0.0-7.0) % Baso % (Auto) (0.0-1.5) % Neut # (Auto) (1.4-5.7) K/uL Lymph # (Auto) (0.6-2.4) K/uL Frio # (Auto) (0.0-0.8) K/uL Eos # (Auto) (0.0-0.7) K/uL Baso # (Auto) (0.0-0.1) K/uL Nucleated RBC % /100WBC Nucleated RBCs # K/uL Sodium (136-145) mmol/L Potassium (3.5-5.1) mmol/L Chloride (98-107) mmol/L Carbon Dioxide (21.0-32.0) mmol/L BUN (7.0-18.0) mg/dL Creatinine (0.6-1.0) mg/dL Est Cr Clr Drug Dosing mL/min Estimated GFR (MDRD) ml/min Glucose (74-106) mg/dL POC Glucose 333 H 275 H 266 H (70-99) mg/dL Calcium (8.5-10.1) mg/dL 07/11/20 07/11/20 07/11/20 Range/Units 05:05 05:05 07:02 WBC 4.11 (4.0-11.0) K/uL RBC 2.88 L (4.30-5.90) M/uL Hgb 9.0 L (12.0-16.0) g/dL Hct 27.5 L (36.0-46.0) % MCV 95.5 (80.0-98.0) fL MCH 31.3 (27.0-32.0) pg MCHC 32.7 (31.0-37.0) g/dL RDW Std Deviation 53.2 (28.0-62.0) fl RDW Coeff of Grace 15 (11.0-15.0) % Plt Count 180 (150-400) K/uL MPV 10.80 (7.40-12.00) fL Neut % (Auto) 65.5 (48.0-80.0) % Lymph % (Auto) 15.8 L (16.0-40.0) % Frio % (Auto) 15.1 H (0.0-15.0) % Eos % (Auto) 3.4 (0.0-7.0) % Baso % (Auto) 0.2 (0.0-1.5) % Neut # (Auto) 2.7 (1.4-5.7) K/uL Lymph # (Auto) 0.7 (0.6-2.4) K/uL Frio # (Auto) 0.6 (0.0-0.8) K/uL Eos # (Auto) 0.1 (0.0-0.7) K/uL Baso # (Auto) 0.0 (0.0-0.1) K/uL Nucleated RBC % 0.0 /100WBC Nucleated RBCs # 0 K/uL Sodium 134 L (136-145) mmol/L Potassium 4.5 (3.5-5.1) mmol/L Chloride 101 (98-107) mmol/L Carbon Dioxide 26.2 (21.0-32.0) mmol/L BUN 37 H (7.0-18.0) mg/dL Creatinine 1.0 (0.6-1.0) mg/dL Est Cr Clr Drug Dosing 37.60 mL/min Estimated GFR (MDRD) 54.8 ml/min Glucose 293 H (74-106) mg/dL POC Glucose 244 H (70-99) mg/dL Calcium 7.2 L (8.5-10.1) mg/dL Med Orders - Current: Current Medications Acetaminophen (Acetaminophen 325 Mg Tab) 650 mg PO Q6H [facility] Last Admin: 07/11/20 08:01 Dose: 650 mg Documented by: Al Hydroxide/Mg Hydroxide (Aluminum Hydroxide/Magnesium Hydroxide/Simethicone Susp 30 Ml Cup) 30 ml PO Q4H PRN PRN Reason: Indigestion Aspirin (Aspirin 325 Mg Tab) 325 mg PO DAILY [facility] Last Admin: 07/11/20 08:01 Dose: 325 mg Documented by: Atorvastatin Calcium (Atorvastatin 40 Mg Tab) 40 mg PO DAILY [facility] Last Admin: 07/11/20 08:02 Dose: 40 mg Documented by: Bisacodyl (Bisacodyl 10 Mg Supp) 10 mg RECTAL DAILY PRN PRN Reason: Constipation Last Admin: 07/10/20 00:37 Dose: 10 mg Documented by: Carvedilol (Carvedilol 25 Mg Tab) 25 mg PO BID [facility] Last Admin: 07/11/20 08:03 Dose: 25 mg Documented by: Dextrose/Water (50% Dextrose In Water 50 Ml Syringe) 50 ml IV ASDIRECTED PRN PRN Reason: Hypoglycemia Diphenhydramine HCl (Diphenhydramine 25 Mg Cap) 25 - 50 mg PO Q6H PRN PRN Reason: Itching Docusate Sodium (Docusate Sodium 100 Mg Cap) 100 mg PO Q12HR [facility] Last Admin: 07/11/20 08:01 Dose: 100 mg Documented by: Famotidine (Famotidine 20 Mg Tab) 40 mg PO DAILY [facility] Last Admin: 07/11/20 08:02 Dose: 40 mg Documented by: Glucagon (Glucagon,Human Recombinant 1 Mg Vial) 1 mg IM ASDIRECTED PRN PRN Reason: Hypoglycemia Hydralazine HCl (Hydralazine 20 Mg/Ml Sdv) 5 mg IVPUSH Q15M PRN PRN Reason: Hypertension Last Admin: 07/06/20 14:20 Dose: 5 mg Documented by: Cefazolin Sodium/Dextrose 2 gm (/ Premix) 50 mls @ 100 mls/hr IV ONCALL [facility] Last Admin: 07/06/20 19:54 Dose: 100 mls/hr Documented by: Acetaminophen 1,000 mg/ Premix 100 mls @ 400 mls/hr IV Q6H PRN PRN Reason: Pain Last Admin: 07/06/20 13:47 Dose: 400 mls/hr Documented by: Sodium Chloride (Normal Saline) 500 mls @ 999 mls/hr IV STAT [facility] Last Admin: 07/07/20 09:03 Dose: 999 mls/hr Documented by: Insulin Aspart (Insulin Aspart 100 Units/Ml 3 Ml Pen) 0 unit SUBCUT TIDAC [facility]; Protocol Last Admin: 07/11/20 07:27 Dose: 6 unit Documented by: Insulin Glargine (Insulin Glargine,Human Rec. Analog 100 Units/Ml 3 Ml Pen) 14 units SUBCUT BEDTIME [facility] Last Admin: 07/10/20 20:48 Dose: 14 units Documented by: Insulin Glargine (Insulin Glargine,Human Rec. Analog 100 Units/Ml 3 Ml Pen) 22 units SUBCUT DAILY [facility] Last Admin: 07/11/20 08:03 Dose: 22 units Documented by: Levothyroxine Sodium (Levothyroxine 75 Mcg Tab) 75 mcg PO ACBRK [facility] Last Admin: 07/11/20 07:03 Dose: 75 mcg Documented by: Losartan Potassium (Losartan 50 Mg Tab) 50 mg PO BID [facility] Last Admin: 07/11/20 08:04 Dose: 50 mg Documented by: Morphine Sulfate (Morphine 2 Mg/Ml Syringe) 1 - 2 mg IVPUSH Q3H PRN PRN Reason: Pain Last Admin: 07/09/20 19:58 Dose: 2 mg Documented by: Omeprazole (Omeprazole 20 Mg Cap.Cr) 20 mg PO BEDTIME [facility] Last Admin: 07/10/20 20:52 Dose: 20 mg Documented by: Ondansetron HCl (Ondansetron 4 Mg Tab.Dis) 4 mg PO Q6H PRN PRN Reason: nausea, able to take PO Ondansetron HCl (Ondansetron 4 Mg/2 Ml Sdv) 4 mg IVPUSH Q6H PRN PRN Reason: Nausea/Vomiting Oxycodone HCl (Oxycodone 5 Mg Tab) 5 - 10 mg PO Q4H PRN PRN Reason: Pain Last Admin: 07/11/20 01:32 Dose: 10 mg Documented by: Polyethylene Glycol (Polyethylene Glycol 3350 Powder 17 Gm Packet) 17 gm PO DAILY [facility] Last Admin: 07/11/20 08:01 Dose: 17 gm Documented by: Discontinued Medications Bupivacaine HCl (Bupivacaine 0.5% 30 Ml Sdv) Confirm Administered Dose 30 ml .ROUTE .STK-MED ONE Stop: 07/06/20 06:57 Cefazolin Sodium (Cefazolin 1 Gm Vial) Confirm Administered Dose 2 gm .ROUTE .STK-MED ONE Stop: 07/06/20 07:57 Cefazolin Sodium (Cefazolin 1 Gm Vial) Confirm Administered Dose 2 gm .ROUTE .STK-MED ONE Stop: 07/06/20 11:24 Dextrose/Water (50% Dextrose In Water 50 Ml Syringe) 50 ml IV ASDIRECTED PRN PRN Reason: Hypoglycemia Fentanyl (Fentanyl 100 Mcg/2 Ml Sdv) Confirm Administered Dose 100 mcg .ROUTE .STK-MED ONE Stop: 07/06/20 07:04 Fentanyl (Fentanyl 250 Mcg/5 Ml Sdv) Confirm Administered Dose 250 mcg .ROUTE .STK-MED ONE Stop: 07/06/20 07:59 Fentanyl (Fentanyl 100 Mcg/2 Ml Sdv) 50 mcg IVPUSH Q5M PRN PRN Reason: Pain Last Admin: 07/06/20 14:41 Dose: 50 mcg Documented by: Glucagon (Glucagon,Human Recombinant 1 Mg Vial) 1 mg IM ASDIRECTED PRN PRN Reason: Hypoglycemia Glycopyrrolate (Glycopyrrolate 0.2 Mg/Ml Sdv) Confirm Administered Dose 0.2 mg .ROUTE .STK-MED ONE Stop: 07/06/20 07:01 Heparin Sodium (Porcine) (Heparin Sodium 5,000 Units/Ml Vial) 5,000 units SUBCUT Q8H [facility] Stop: 07/05/20 17:00 Last Admin: 07/05/20 11:20 Dose: 5,000 units Documented by: Hydralazine HCl (Hydralazine 20 Mg/Ml Sdv) Confirm Administered Dose 20 mg .ROUTE .STK-MED ONE Stop: 07/06/20 14:18 Last Admin: 07/06/20 15:26 Dose: Not Given Documented by: Hydrochlorothiazide (Hydrochlorothiazide 25 Mg Tab) 25 mg PO DAILY [facility] Sodium Chloride (Normal Saline) 1,000 mls @ 999 mls/hr IV .[facility] ONE Stop: 07/04/20 21:50 Last Admin: 07/04/20 21:03 Dose: 999 mls/hr Documented by: Sodium Chloride (Normal Saline) 1,000 mls @ 100 mls/hr IV CONTINUOUS ONE Stop: 07/06/20 05:21 Last Admin: 07/05/20 20:44 Dose: 100 mls/hr Documented by: Sodium Chloride (Normal Saline) Confirm Administered Dose 20 mls @ as directed .ROUTE .STK-MED ONE Stop: 07/06/20 06:59 Sodium Chloride (Normal Saline) Confirm Administered Dose 20 mls @ as directed .ROUTE .STK-MED ONE Stop: 07/06/20 07:57 Sodium Chloride (Normal Saline) Confirm Administered Dose 20 mls @ as directed .ROUTE .STK-MED ONE Stop: 07/06/20 11:24 Cefazolin Sodium/Dextrose 2 gm (/ Premix) 50 mls @ 100 mls/hr IV Q8H [facility] Stop: 07/07/20 04:29 Last Admin: 07/07/20 03:32 Dose: 100 mls/hr Documented by: Acetaminophen (Ofirmev 1000 Mg/100 Ml) Confirm Administered Dose 100 mls @ as directed .ROUTE .[facility]-MED ONE Stop: 07/06/20 13:41 Sodium Chloride (Normal Saline) 1,000 mls @ 75 mls/hr IV ASDIRECTED [facility] Stop: 07/07/20 16:00 Sodium Chloride (Normal Saline) 1,000 mls @ 75 mls/hr IV ONETIME ONE Stop: 07/07/20 22:25 Last Admin: 07/07/20 10:28 Dose: 75 mls/hr Documented by: Sodium Chloride (Normal Saline) 500 mls @ 100 mls/hr IV ONETIME ONE Stop: 07/08/20 16:42 Last Admin: 07/08/20 12:08 Dose: 100 mls/hr Documented by: Ibuprofen (Ibuprofen 600 Mg Tab) 600 mg PO ONETIME ONE Stop: 07/04/20 19:07 Last Admin: 07/04/20 19:22 Dose: 600 mg Documented by: Ibuprofen (Ibuprofen 400 Mg Tab) 400 mg PO Q4H PRN PRN Reason: Pain Last Admin: 07/08/20 09:54 Dose: 400 mg Documented by: Insulin Glargine (Insulin Glargine,Human Rec. Analog 100 Units/Ml 3 Ml Pen) 22 units SUBCUT ONETIME ONE Stop: 07/05/20 11:31 Last Admin: 07/05/20 11:18 Dose: 22 units Documented by: Insulin Glargine (Insulin Glargine,Human Rec. Analog 100 Units/Ml 3 Ml Pen) 11 units SUBCUT ONETIME ONE Stop: 07/06/20 05:01 Last Admin: 07/06/20 04:54 Dose: 11 units Documented by: Insulin Glargine (Insulin Glargine,Human Rec. Analog 100 Units/Ml 3 Ml Pen) 7 units SUBCUT BEDTIME [facility] Last Admin: 07/05/20 20:48 Dose: 7 units Documented by: Insulin Human Regular (Insulin Regular, Human 100 Units/Ml 10 Ml Vial) Confirm Administered Dose 1,000 unit .ROUTE .STK-MED ONE Stop: 07/06/20 07:36 Ketamine HCl (Ketamine 500 Mg/10 Ml Mdv) Confirm Administered Dose 500 mg .ROUTE .STK-MED ONE Stop: 07/06/20 08:01 Ketorolac Tromethamine (Ketorolac 30 Mg/Ml Sdv) Confirm Administered Dose 30 mg .ROUTE .STK-MED ONE Stop: 07/06/20 07:01 Lidocaine (Lidocaine 2% 5 Ml Sdv) Confirm Administered Dose 5 ml .ROUTE .STK-MED ONE Stop: 07/06/20 07:01 Losartan Potassium (Losartan 50 Mg Tab) 50 mg PO BID [facility] Midazolam HCl (Midazolam 1 Mg/Ml 2 Ml Sdv) Confirm Administered Dose 2 mg .ROUTE .STK-MED ONE Stop: 07/06/20 07:03 Midazolam HCl (Midazolam 1 Mg/Ml 2 Ml Sdv) Confirm Administered Dose 2 mg .ROUTE .STK-MED ONE Stop: 07/06/20 07:03 Ondansetron HCl (Ondansetron 4 Mg/2 Ml Sdv) Confirm Administered Dose 4 mg .ROUTE .STK-MED ONE Stop: 07/06/20 07:01 Oxycodone HCl (Oxycodone 5 Mg Tab) 5 mg PO Q4H PRN PRN Reason: Pain (moderate 4-6) Last Admin: 07/06/20 04:53 Dose: 5 mg Documented by: Phenylephrine HCl (Phenylephrine 1% 10 Mg/Ml Sdv) Confirm Administered Dose 10 mg .ROUTE .STK-MED ONE Stop: 07/06/20 06:40 Propofol (Propofol 200 Mg/20 Ml Sdv) Confirm Administered Dose 200 mg .ROUTE .STK-MED ONE Stop: 07/06/20 07:03 Rocuronium Clawson (Rocuronium Cl[place]son 50 Mg/5 Ml Syringe) Confirm Administered Dose 50 mg .ROUTE .STK-MED ONE Stop: 07/06/20 07:01 Rocuronium Clawson (Rocuronium [place]son 50 Mg/5 Ml Syringe) Confirm Administered Dose 50 mg .ROUTE .STK-MED ONE Stop: 07/06/20 10:28 Sugammadex Sodium (Sugammadex Sodium 200 Mg/2 Ml Vial) Confirm Administered Dose 200 mg .ROUTE .STK-MED ONE Stop: 07/06/20 08:53 Tranexamic Acid (Tranexamic Acid 1,000 Mg/10 Ml Amp) Confirm Administered Dose 1,000 mg .ROUTE .STK-MED ONE Stop: 07/06/20 09:40 <Adriana Osborn - Last Filed: 07/11/20 18:11> Discharge Summary - Hospital Course Free Text/Narrative:: I have seen and evaluated the patient. I have discussed findings and treatment plan with resident. I agree with the assessment and plan in the following note. - Referral to Home Health Primary Care Physician: Cathryn Do PA-C - Patient Summary/Data Consults: Consultations 07/06/20 13:26 PT Evaluation and Treatment [CONS] Routine - Patient Data Vitals - Most Recent: Last Vital Signs Temp 37.2 C 07/11/20 12:24 Pulse 62 07/11/20 12:24 Resp 18 07/11/20 12:24 BP 109/59 L 07/11/20 13:00 Pulse Ox 91 L 07/11/20 12:24 I&O - Last 24 hours: Intake & Output 07/11/20 07/11/20 07/11/20 06:59 14:59 22:59 Intake Total 550 360 Output Total 400 400 Balance 150 -40 Lab Results - Last 24 hrs: Laboratory Results - last 24 hr 07/10/20 07/11/20 07/11/20 Range/Units 20:47 05:05 05:05 WBC 4.11 (4.0-11.0) K/uL RBC 2.88 L (4.30-5.90) M/uL Hgb 9.0 L (12.0-16.0) g/dL Hct 27.5 L (36.0-46.0) % MCV 95.5 (80.0-98.0) fL MCH 31.3 (27.0-32.0) pg MCHC 32.7 (31.0-37.0) g/dL RDW Std Deviation 53.2 (28.0-62.0) fl RDW Coeff of Grace 15 (11.0-15.0) % Plt Count 180 (150-400) K/uL MPV 10.80 (7.40-12.00) fL Neut % (Auto) 65.5 (48.0-80.0) % Lymph % (Auto) 15.8 L (16.0-40.0) % Frio % (Auto) 15.1 H (0.0-15.0) % Eos % (Auto) 3.4 (0.0-7.0) % Baso % (Auto) 0.2 (0.0-1.5) % Neut # (Auto) 2.7 (1.4-5.7) K/uL Lymph # (Auto) 0.7 (0.6-2.4) K/uL Frio # (Auto) 0.6 (0.0-0.8) K/uL Eos # (Auto) 0.1 (0.0-0.7) K/uL Baso # (Auto) 0.0 (0.0-0.1) K/uL Nucleated RBC % 0.0 /100WBC Nucleated RBCs # 0 K/uL Sodium 134 L (136-145) mmol/L Potassium 4.5 (3.5-5.1) mmol/L Chloride 101 (98-107) mmol/L Carbon Dioxide 26.2 (21.0-32.0) mmol/L BUN 37 H (7.0-18.0) mg/dL Creatinine 1.0 (0.6-1.0) mg/dL Est Cr Clr Drug Dosing 37.60 mL/min Estimated GFR (MDRD) 54.8 ml/min Glucose 293 H (74-106) mg/dL POC Glucose 266 H (70-99) mg/dL Calcium 7.2 L (8.5-10.1) mg/dL 07/11/20 07/11/20 Range/Units 07:02 11:29 WBC (4.0-11.0) K/uL RBC (4.30-5.90) M/uL Hgb (12.0-16.0) g/dL Hct (36.0-46.0) % MCV (80.0-98.0) fL MCH (27.0-32.0) pg MCHC (31.0-37.0) g/dL RDW Std Deviation (28.0-62.0) fl RDW Coeff of Grace (11.0-15.0) % Plt Count (150-400) K/uL MPV (7.40-12.00) fL Neut % (Auto) (48.0-80.0) % Lymph % (Auto) (16.0-40.0) % Frio % (Auto) (0.0-15.0) % Eos % (Auto) (0.0-7.0) % Baso % (Auto) (0.0-1.5) % Neut # (Auto) (1.4-5.7) K/uL Lymph # (Auto) (0.6-2.4) K/uL Frio # (Auto) (0.0-0.8) K/uL Eos # (Auto) (0.0-0.7) K/uL Baso # (Auto) (0.0-0.1) K/uL Nucleated RBC % /100WBC Nucleated RBCs # K/uL Sodium (136-145) mmol/L Potassium (3.5-5.1) mmol/L Chloride (98-107) mmol/L Carbon Dioxide (21.0-32.0) mmol/L BUN (7.0-18.0) mg/dL Creatinine (0.6-1.0) mg/dL Est Cr Clr Drug Dosing mL/min Estimated GFR (MDRD) ml/min Glucose (74-106) mg/dL POC Glucose 244 H 270 H (70-99) mg/dL Calcium (8.5-10.1) mg/dL Med Orders - Current: Current Medications Discontinued Medications Acetaminophen (Acetaminophen 325 Mg Tab) 650 mg PO Q6H [facility] Last Admin: 07/11/20 08:01 Dose: 650 mg Documented by: Al Hydroxide/Mg Hydroxide (Aluminum Hydroxide/Magnesium Hydroxide/Simethicone Susp 30 Ml Cup) 30 ml PO Q4H PRN PRN Reason: Indigestion Aspirin (Aspirin 325 Mg Tab) 325 mg PO DAILY [facility] Last Admin: 07/11/20 08:01 Dose: 325 mg Documented by: Atorvastatin Calcium (Atorvastatin 40 Mg Tab) 40 mg PO DAILY [facility] Last Admin: 07/11/20 08:02 Dose: 40 mg Documented by: Bisacodyl (Bisacodyl 10 Mg Supp) 10 mg RECTAL DAILY PRN PRN Reason: Constipation Last Admin: 07/10/20 00:37 Dose: 10 mg Documented by: Bupivacaine HCl (Bupivacaine 0.5% 30 Ml Sdv) Confirm Administered Dose 30 ml .ROUTE .STK-MED ONE Stop: 07/06/20 06:57 Carvedilol (Carvedilol 25 Mg Tab) 25 mg PO BID [facility] Last Admin: 07/11/20 08:03 Dose: 25 mg Documented by: Cefazolin Sodium (Cefazolin 1 Gm Vial) Confirm Administered Dose 2 gm .ROUTE .STK-MED ONE Stop: 07/06/20 07:57 Cefazolin Sodium (Cefazolin 1 Gm Vial) Confirm Administered Dose 2 gm .ROUTE .STK-MED ONE Stop: 07/06/20 11:24 Dextrose/Water (50% Dextrose In Water 50 Ml Syringe) 50 ml IV ASDIRECTED PRN PRN Reason: Hypoglycemia Dextrose/Water (50% Dextrose In Water 50 Ml Syringe) 50 ml IV ASDIRECTED PRN PRN Reason: Hypoglycemia Diphenhydramine HCl (Diphenhydramine 25 Mg Cap) 25 - 50 mg PO Q6H PRN PRN Reason: Itching Docusate Sodium (Docusate Sodium 100 Mg Cap) 100 mg PO Q12HR [facility] Last Admin: 07/11/20 08:01 Dose: 100 mg Documented by: Famotidine (Famotidine 20 Mg Tab) 40 mg PO DAILY [facility] Last Admin: 07/11/20 08:02 Dose: 40 mg Documented by: Fentanyl (Fentanyl 100 Mcg/2 Ml Sdv) Confirm Administered Dose 100 mcg .ROUTE .STK-MED ONE Stop: 07/06/20 07:04 Fentanyl (Fentanyl 250 Mcg/5 Ml Sdv) Confirm Administered Dose 250 mcg .ROUTE .STK-MED ONE Stop: 07/06/20 07:59 Fentanyl (Fentanyl 100 Mcg/2 Ml Sdv) 50 mcg IVPUSH Q5M PRN PRN Reason: Pain Last Admin: 07/06/20 14:41 Dose: 50 mcg Documented by: Glucagon (Glucagon,Human Recombinant 1 Mg Vial) 1 mg IM ASDIRECTED PRN PRN Reason: Hypoglycemia Glucagon (Glucagon,Human Recombinant 1 Mg Vial) 1 mg IM ASDIRECTED PRN PRN Reason: Hypoglycemia Glycopyrrolate (Glycopyrrolate 0.2 Mg/Ml Sdv) Confirm Administered Dose 0.2 mg .ROUTE .STK-MED ONE Stop: 07/06/20 07:01 Heparin Sodium (Porcine) (Heparin Sodium 5,000 Units/Ml Vial) 5,000 units SUBCUT Q8H [facility] Stop: 07/05/20 17:00 Last Admin: 07/05/20 11:20 Dose: 5,000 units Documented by: Hydralazine HCl (Hydralazine 20 Mg/Ml Sdv) 5 mg IVPUSH Q15M PRN PRN Reason: Hypertension Last Admin: 07/06/20 14:20 Dose: 5 mg Documented by: Hydralazine HCl (Hydralazine 20 Mg/Ml Sdv) Confirm Administered Dose 20 mg .ROUTE .STK-MED ONE Stop: 07/06/20 14:18 Last Admin: 07/06/20 15:26 Dose: Not Given Documented by: Hydrochlorothiazide (Hydrochlorothiazide 25 Mg Tab) 25 mg PO DAILY [facility] Sodium Chloride (Normal Saline) 1,000 mls @ 999 mls/hr IV .Bolus ONE Stop: 07/04/20 21:50 Last Admin: 07/04/20 21:03 Dose: 999 mls/hr Documented by: Cefazolin Sodium/Dextrose 2 gm (/ Premix) 50 mls @ 100 mls/hr IV ONCALL [facility] Last Admin: 07/06/20 19:54 Dose: 100 mls/hr Documented by: Sodium Chloride (Normal Saline) 1,000 mls @ 100 mls/hr IV CONTINUOUS ONE Stop: 07/06/20 05:21 Last Admin: 07/05/20 20:44 Dose: 100 mls/hr Documented by: Sodium Chloride (Normal Saline) Confirm Administered Dose 20 mls @ as directed .ROUTE .STK-MED ONE Stop: 07/06/20 06:59 Sodium Chloride (Normal Saline) Confirm Administered Dose 20 mls @ as directed .ROUTE .STK-MED ONE Stop: 07/06/20 07:57 Sodium Chloride (Normal Saline) Confirm Administered Dose 20 mls @ as directed .[facility]TE [facility] ONE Stop: 07/06/20 11:24 Acetaminophen 1,000 mg/ Premix 100 mls @ 400 mls/hr IV Q6H PRN PRN Reason: Pain Last Admin: 07/06/20 13:47 Dose: 400 mls/hr Documented by: Cefazolin Sodium/Dextrose 2 gm (/ Premix) 50 mls @ 100 mls/hr IV Q8H [facility] Stop: 07/07/20 04:29 Last Admin: 07/07/20 03:32 Dose: 100 mls/hr Documented by: Acetaminophen (Ofirmev 1000 Mg/100 Ml) Confirm Administered Dose 100 mls @ as directed .ROUTE .[facility] ONE Stop: 07/06/20 13:41 Sodium Chloride (Normal Saline) 500 mls @ 999 mls/hr IV STAT [facility] Last Admin: 07/07/20 09:03 Dose: 999 mls/hr Documented by: Sodium Chloride (Normal Saline) 1,000 mls @ 75 mls/hr IV ASDIRECTED [facility] Stop: 07/07/20 16:00 Sodium Chloride (Normal Saline) 1,000 mls @ 75 mls/hr IV ONETIME ONE Stop: 07/07/20 22:25 Last Admin: 07/07/20 10:28 Dose: 75 mls/hr Documented by: Sodium Chloride (Normal Saline) 500 mls @ 100 mls/hr IV ONETIME ONE Stop: 07/08/20 16:42 Last Admin: 07/08/20 12:08 Dose: 100 mls/hr Documented by: Ibuprofen (Ibuprofen 600 Mg Tab) 600 mg PO ONETIME ONE Stop: 07/04/20 19:07 Last Admin: 07/04/20 19:22 Dose: 600 mg Documented by: Ibuprofen (Ibuprofen 400 Mg Tab) 400 mg PO Q4H PRN PRN Reason: Pain Last Admin: 07/08/20 09:54 Dose: 400 mg Documented by: Insulin Aspart (Insulin Aspart 100 Units/Ml 3 Ml Pen) 0 unit SUBCUT TIDAC [facility]; Protocol Last Admin: 07/11/20 11:30 Dose: 9 unit Documented by: Insulin Glargine (Insulin Glargine,Human Rec. Analog 100 Units/Ml 3 Ml Pen) 22 units SUBCUT ONETIME ONE Stop: 07/05/20 11:31 Last Admin: 07/05/20 11:18 Dose: 22 units Documented by: Insulin Glargine (Insulin Glargine,Human Rec. Analog 100 Units/Ml 3 Ml Pen) 11 units SUBCUT ONETIME ONE Stop: 07/06/20 05:01 Last Admin: 07/06/20 04:54 Dose: 11 units Documented by: Insulin Glargine (Insulin Glargine,Human Rec. Analog 100 Units/Ml 3 Ml Pen) 7 units SUBCUT BEDTIME [facility] Last Admin: 07/05/20 20:48 Dose: 7 units Documented by: Insulin Glargine (Insulin Glargine,Human Rec. Analog 100 Units/Ml 3 Ml Pen) 14 units SUBCUT BEDTIME [facility] Last Admin: 07/10/20 20:48 Dose: 14 units Documented by: Insulin Glargine (Insulin Glargine,Human Rec. Analog 100 Units/Ml 3 Ml Pen) 22 units SUBCUT DAILY [facility] Last Admin: 07/11/20 08:03 Dose: 22 units Documented by: Insulin Human Regular (Insulin Regular, Human 100 Units/Ml 10 Ml Vial) Confirm Administered Dose 1,000 unit .ROUTE .STK-MED ONE Stop: 07/06/20 07:36 Ketamine HCl (Ketamine 500 Mg/10 Ml Mdv) Confirm Administered Dose 500 mg .ROUTE .STK-MED ONE Stop: 07/06/20 08:01 Ketorolac Tromethamine (Ketorolac 30 Mg/Ml Sdv) Confirm Administered Dose 30 mg .ROUTE .STK-MED ONE Stop: 07/06/20 07:01 Levothyroxine Sodium (Levothyroxine 75 Mcg Tab) 75 mcg PO ACBRK [facility] Last Admin: 07/11/20 07:03 Dose: 75 mcg Documented by: Lidocaine (Lidocaine 2% 5 Ml Sdv) Confirm Administered Dose 5 ml .ROUTE .STK-MED ONE Stop: 07/06/20 07:01 Losartan Potassium (Losartan 50 Mg Tab) 50 mg PO BID [facility] Losartan Potassium (Losartan 50 Mg Tab) 50 mg PO BID [facility] Last Admin: 07/11/20 08:04 Dose: 50 mg Documented by: Midazolam HCl (Midazolam 1 Mg/Ml 2 Ml Sdv) Confirm Administered Dose 2 mg .ROUTE .STK-MED ONE Stop: 07/06/20 07:03 Midazolam HCl (Midazolam 1 Mg/Ml 2 Ml Sdv) Confirm Administered Dose 2 mg .ROUTE .STK-MED ONE Stop: 07/06/20 07:03 Morphine Sulfate (Morphine 2 Mg/Ml Syringe) 1 - 2 mg IVPUSH Q3H PRN PRN Reason: Pain Last Admin: 07/09/20 19:58 Dose: 2 mg Documented by: Omeprazole (Omeprazole 20 Mg Cap.Cr) 20 mg PO BEDTIME [facility] Last Admin: 07/10/20 20:52 Dose: 20 mg Documented by: Ondansetron HCl (Ondansetron 4 Mg Tab.Dis) 4 mg PO Q6H PRN PRN Reason: nausea, able to take PO Ondansetron HCl (Ondansetron 4 Mg/2 Ml Sdv) Confirm Administered Dose 4 mg .ROUTE .STK-MED ONE Stop: 07/06/20 07:01 Ondansetron HCl (Ondansetron 4 Mg/2 Ml Sdv) 4 mg IVPUSH Q6H PRN PRN Reason: Nausea/Vomiting Oxycodone HCl (Oxycodone 5 Mg Tab) 5 mg PO Q4H PRN PRN Reason: Pain (moderate 4-6) Last Admin: 07/06/20 04:53 Dose: 5 mg Documented by: Oxycodone HCl (Oxycodone 5 Mg Tab) 5 - 10 mg PO Q4H PRN PRN Reason: Pain Last Admin: 07/11/20 12:51 Dose: 5 mg Documented by: Phenylephrine HCl (Phenylephrine 1% 10 Mg/Ml Sdv) Confirm Administered Dose 10 mg .ROUTE .STK-MED ONE Stop: 07/06/20 06:40 Polyethylene Glycol (Polyethylene Glycol 3350 Powder 17 Gm Packet) 17 gm PO DAILY [facility] Last Admin: 07/11/20 08:01 Dose: 17 gm Documented by: Propofol (Propofol 200 Mg/20 Ml Sdv) Confirm Administered Dose 200 mg .ROUTE .STK-MED ONE Stop: 07/06/20 07:03 Rocuronium Clawson (Rocuronium Clawson 50 Mg/5 Ml Syringe) Confirm Administered Dose 50 mg .ROUTE .STK-MED ONE Stop: 07/06/20 07:01 Rocuronium Clawson (Rocuronium Clawson 50 Mg/5 Ml Syringe) Confirm Administered Dose 50 mg .ROUTE .STK-MED ONE Stop: 07/06/20 10:28 Sugammadex Sodium (Sugammadex Sodium 200 Mg/2 Ml Vial) Confirm Administered Dose 200 mg .ROUTE .[employer]-MED ONE Stop: 07/06/20 08:53 Tranexamic Acid (Tranexamic Acid 1,000 Mg/10 Ml Amp) Confirm Administered Dose 1,000 mg .ROUTE .[employer]-MED ONE Stop: 07/06/20 09:40
== END 2020-07-11 13:00 | DRG 480 ==
LOC: MW.ED 13:46 → MW.MS 17:50
PROVIDERS: ADMIT Internal Medicine; ATTEND Internal Medicine
PROC: 0PSG04Z Reposition Left Humeral Shaft with Internal Fixation Device, Open Approach (ICD-10-PCS; principal; 2020-07-06)
PROC: 0QS604Z Reposition Right Upper Femur with Internal Fixation Device, Open Approach (ICD-10-PCS; 2020-07-06)
DX: S42.342A Displaced spiral fracture of shaft of humerus, left arm, initial encounter for closed fracture (principal); S42.332A Displaced oblique fracture of shaft of humerus, left arm, initial encounter for closed fracture; S72.001A Fracture of unspecified part of neck of right femur, initial encounter for closed fracture; E78.00 Pure hypercholesterolemia, unspecified; N17.9 Acute kidney failure, unspecified; E11.9 Type 2 diabetes mellitus without complications; E87.1 Hypo-osmolality and hyponatremia; Z79.890 Hormone replacement therapy; Z79.4 Long term (current) use of insulin; Z79.899 Other long term (current) drug therapy; W01.0XXA Fall on same level from slipping, tripping and stumbling without subsequent striking against object, initial encounter; I10 Essential (primary) hypertension; E03.9 Hypothyroidism, unspecified; E11.65 Type 2 diabetes mellitus with hyperglycemia; E66.9 Obesity, unspecified; Z20.822 Contact with and (suspected) exposure to COVID-19; Z68.39 Body mass index [BMI] 39.0-39.9, adult
CPT/HCPCS: 36415; 71045; 73060; 73502; 80053; 83036; 84443; 85025; 93005; 99285; U0002; 01230; 36430; 51798; 80048; 81003; 82947; 83605; 86850; 86900; 86901; 86920; 86921; 86922; 97110-GP; 97162-GP; 97530-GP; 99221; 99231; 99232; 99238; A9270-GY; J0131; J0360; J0690; J1644; J1815-GY; J1885; J2250; J2270; J2370; J2405; J2704; J3010; J3490; J7030; J7040; P9016